=== PATIENT | female | born 1980 | race Caucasian/White ===

== ENCOUNTER 2020-05-03 06:18 | Outpatient (REF) | payer OTHER, SELFPAY ==
[2020-05-03 07:13] LABS: MANUAL DIFF FLAG NO
[2020-05-03 07:20] LABS: Basophils Percent Auto 0.4 % (0-2); Eosinophils Absolute Auto 0.1 X10*3/uL (0.0-0.4); Eosinophils Percent Auto 1.3 % (0-4); Hematocrit 34.4 % (37-47); Hemoglobin 10.9 g/dl (12.0-16.0); Imm Gran Abs Auto 0.03 X10*3/uL (0.00-0.03); Imm Gran Pct Auto 0.4 % (0.0-0.4); Lymphocytes Absolute Auto 3.2 X10*3/uL (1.2-4.9); Lymphocytes Percent Auto 37.9 % (20-40); Mean Corpuscular HGB Conc 31.7 g/dl (31.0-35.0); Mean Corpuscular Hemoglobin 25.8 pg (27.0-33.0); Mean Corpuscular Volume 81.3 fL (80-98); Mean Platelet Volume 10.5 fL (9.4-12.3); Monocytes Absolute Auto 0.8 X10*3/uL (0.1-1.2); Monocytes Percent Auto 9.3 % (2-11); Neutrophils Absolute Auto 4.3 X10*3/uL (2.0-8.3); Neutrophils Percent Auto 50.7 % (45-73); Platelet Count 304 X10*3/uL (160-400); Red Blood Count 4.23 X10*6/uL (4.20-5.50); Red Cell Distribution Width 14.1 % (11.0-16.0); White Blood Count 8.4 X10*3/uL (4.8-10.8)
[2020-05-03 07:45] LABS: Alanine Aminotransferase 17 U/L (0-31); Albumin Level 3.9 g/dL (3.5-5.0); Alkaline Phosphatase 73 U/L (39-117); Anion Gap 16 (12-20); Aspartate Amino Transferase 16 U/L (5-31); Bilirubin Direct 0.2 mg/dL (0.0-0.5); Bilirubin Total 0.4 mg/dL (0.0-1.0); Blood Urea Nitrogen 14 mg/dL (9-16); Calcium 8.2 mg/dL (8.4-10.2); Carbon Dioxide 23 mmol/L (22-29); Chloride 104 mmol/L (96-108); Cholesterol 148 mg/dL; Estimated Glomerular Filt Rate > 60; Glucose Fasting 90 mg/dL (60-99); HDL Cholesterol 32 mg/dL; LDL Cholesterol Calculated 78 mg/dl; Potassium 4.1 mmol/L (3.3-5.1); Sodium 139 mmol/L (135-145); Triglycerides 193 mg/dL
[2020-05-09 12:02] LABS: Vitamin D 25-OH, D2 <4 ng/mL; Vitamin D 25-OH, D3 69 ng/mL; Vitamin D 25-OH, Total 69 ng/mL (30-100)
== END 2020-05-03 06:19 | disposition home or self-care (01) ==
LOC: HO.LAB 06:18
PROVIDERS: PCP Internal Medicine; Visit Provider Internal Medicine
DX: E55.9 Vitamin D deficiency, unspecified (principal); E78.9 Disorder of lipoprotein metabolism, unspecified; I10 Essential (primary) hypertension
CPT/HCPCS: 36415; 80048; 80061; 80076; 82306; 85025

== ENCOUNTER 2020-05-17 16:05 | Outpatient (REF) | payer OTHER, SELFPAY ==
[2020-05-17 16:38] LABS: Hematocrit 32.5 % (37-47); Hemoglobin 10.7 g/dl (12.0-16.0)
[2020-05-17 17:25] LABS: Ferritin 6 ng/mL (10-250)
[2020-05-17 17:39] LABS: Folate 15.6 ng/mL (> or = 4.0); Vitamin B12 158 pg/mL (200-900)
== END 2020-05-17 16:06 | disposition home or self-care (01) ==
LOC: HO.LAB 16:05
PROVIDERS: PCP Internal Medicine; Visit Provider Internal Medicine
DX: D64.9 Anemia, unspecified (principal)
CPT/HCPCS: 36415; 82607; 82728; 82746; 85014; 85018

== ENCOUNTER → 2020-05-29 11:08 | Outpatient (BNVA) | payer OTHER, SELFPAY | PROVIDERS: PCP Internal Medicine; Visit Provider Advanced Practice Midwife ==

== ENCOUNTER 2020-06-13 12:40 | Outpatient (REF) | payer OTHER, SELFPAY ==
--- NOTE | ~2020-06-13 | US_ITS ---
EXAMINATION: US PELVIS ULTRASOUND CLINICAL INFORMATION: N92.0 - Excessive and frequent menstruation with regular cycle. Age 40. LMP 05/06/2020. COMPARISON: None TECHNIQUE: Ultrasound of the pelvis is performed using both transabdominal and transvaginal transducers along with Doppler. Transvaginal imaging is performed due to inadequate visualization transabdominally. FINDINGS: Uterus: The uterus is anteverted and measures 11.1 x 4.8 x 6.3 cm. The double wall endometrial thickness is normal, approximately 7 mm. The uterus is smooth in contour. There is no exophytic lesion. There is mild coarsening of the myometrial echotexture. On some of the images, there is suggestion of 3 small intramural fibroids fundus and upper body measuring between 1.3 and 0.9 cm. No submucosal fibroid demonstrated. There are some smaller both the end cysts in the cervix. Adnexa: Both ovaries are visualized. There is normal color flow to the adnexa. There is no ovarian torsion. There is no pelvic ascites or fluid collection. Right ovary measures 3.2 x 1.6 x 1.9 cm. Volume 5.1 mL. Left ovary measures 2.7 x 1.1 x 2.2 cm. Volume 3.4 mL. US/US transvaginal IMPRESSION: 1. Uterus: Endometrial double wall thickness normal, 7 mm. Suspect 3 small intramural fibroids, largest only 1.3 cm. No visible submucosal fibroid. 2. Adnexa: No adnexal mass or pelvic ascites.
--- NOTE | ~2020-06-13 | US_ITS ---
EXAMINATION: US PELVIS ULTRASOUND CLINICAL INFORMATION: N92.0 - Excessive and frequent menstruation with regular cycle. Age 40. LMP 05/06/2020. COMPARISON: None TECHNIQUE: Ultrasound of the pelvis is performed using both transabdominal and transvaginal transducers along with Doppler. Transvaginal imaging is performed due to inadequate visualization transabdominally. FINDINGS: Uterus: The uterus is anteverted and measures 11.1 x 4.8 x 6.3 cm. The double wall endometrial thickness is normal, approximately 7 mm. The uterus is smooth in contour. There is no exophytic lesion. There is mild coarsening of the myometrial echotexture. On some of the images, there is suggestion of 3 small intramural fibroids fundus and upper body measuring between 1.3 and 0.9 cm. No submucosal fibroid demonstrated. There are some smaller both the end cysts in the cervix. Adnexa: Both ovaries are visualized. There is normal color flow to the adnexa. There is no ovarian torsion. There is no pelvic ascites or fluid collection. Right ovary measures 3.2 x 1.6 x 1.9 cm. Volume 5.1 mL. Left ovary measures 2.7 x 1.1 x 2.2 cm. Volume 3.4 mL. US/US pelvic complete IMPRESSION: 1. Uterus: Endometrial double wall thickness normal, 7 mm. Suspect 3 small intramural fibroids, largest only 1.3 cm. No visible submucosal fibroid. 2. Adnexa: No adnexal mass or pelvic ascites.
== END 2020-06-13 12:41 | disposition home or self-care (01) ==
LOC: HO.US 12:40
PROVIDERS: Visit Provider Advanced Practice Midwife
DX: N92.0 Excessive and frequent menstruation with regular cycle (principal)
CPT/HCPCS: 76830; 76856

== ENCOUNTER → 2020-06-18 15:25 | Outpatient (BNVA) | payer OTHER, SELFPAY | PROVIDERS: PCP Internal Medicine; Visit Provider Advanced Practice Midwife ==

== ENCOUNTER 2020-06-22 10:52 | Outpatient (REF) | payer OTHER, SELFPAY ==
[2020-06-22 12:35] LABS: Thyroid Stimulating Hormone 1.86 uIU/mL (0.32-4.0)
== END 2020-06-22 10:53 | disposition home or self-care (01) ==
LOC: HO.LAB 10:52
PROVIDERS: PCP Internal Medicine; Visit Provider Advanced Practice Midwife
DX: N92.1 Excessive and frequent menstruation with irregular cycle (principal)
CPT/HCPCS: 36415; 84443

== ENCOUNTER 2020-06-24 13:02 | Outpatient (REF) | payer OTHER, SELFPAY | END 2020-06-24 13:03 | disposition home or self-care (01) | LOC: HO.LAB 13:02 | PROVIDERS: PCP Internal Medicine; Visit Provider Advanced Practice Midwife | DX: N93.9 Abnormal uterine and vaginal bleeding, unspecified (principal); N92.0 Excessive and frequent menstruation with regular cycle | CPT/HCPCS: 58100; 81025; 88305 ==

== ENCOUNTER → 2020-07-16 15:35 | Outpatient (BNVA) | payer OTHER, SELFPAY | PROVIDERS: Visit Provider Advanced Practice Midwife ==

== ENCOUNTER 2020-07-17 13:48 | Outpatient (REF) | payer OTHER, SELFPAY ==
--- NOTE | ~2020-07-17 | MM_ITS ---
EXAMINATION: MM SCREENING DIGITAL BREAST TOMOSYNTHESIS, BILATERAL CLINICAL INFORMATION: Screening. Asymptomatic. Age 40. No prior breast imaging. No known family history breast cancer. The lifetime risk of breast cancer based on the Tyrer-Cuzick Model is 10%. COMPARISON: None (current study represents initial baseline exam). TECHNIQUE: Digital breast tomosynthesis is performed in both the craniocaudal and mediolateral oblique views along with computer-aided detection (CAD). Synthesized 2D images are generated from the tomosynthesis. Additional views are provided: Right CC, right MLO, left MLO. FINDINGS: The breasts are almost entirely fatty (ACR BI-RADS breast composition Category a). There are no significant masses, abnormal calcifications, or other abnormalities. There is incidental intramammary node posterior upper outer right breast. Skin contours are smooth. MM/MM tomosynthesis screening BI IMPRESSION: No mammographic evidence of malignancy. ASSESSMENT: BI-RADS 2: Benign RECOMMENDATION: Routine annual mammography screening. This patient's information was entered into a reminder system with a target due date for their next mammogram.
== END 2020-07-17 13:49 | disposition home or self-care (01) ==
LOC: HO.MAMMO 13:48
PROVIDERS: Visit Provider Advanced Practice Midwife
DX: Z12.31 Encounter for screening mammogram for malignant neoplasm of breast (principal)
CPT/HCPCS: 77063; 77067

== ENCOUNTER 2020-07-25 09:17 | Outpatient (REF) | payer OTHER, SELFPAY | END 2020-07-25 09:18 | disposition home or self-care (01) | LOC: HO.LAB 09:17 | PROVIDERS: Visit Provider Nurse Practitioner Family | DX: Z20.822 Contact with and (suspected) exposure to COVID-19 (principal); R09.82 Postnasal drip | CPT/HCPCS: U0003; U0005 ==

== ENCOUNTER 2020-11-07 08:10 | Outpatient (REF) | payer OTHER, SELFPAY ==
[2020-11-07 09:03] LABS: Hematocrit 37.1 % (37-47); Hemoglobin 12.7 g/dl (12.0-16.0)
[2020-11-07 09:26] LABS: Alanine Aminotransferase 19 U/L (0-31); Albumin Level 4.1 g/dL (3.5-5.0); Alkaline Phosphatase 105 U/L (39-117); Anion Gap 13 (12-20); Aspartate Amino Transferase 17 U/L (5-31); Bilirubin Total 0.3 mg/dL (0.0-1.0); Blood Urea Nitrogen 15 mg/dL (9-16); Calcium 9.1 mg/dL (8.4-10.2); Carbon Dioxide 26 mmol/L (22-29); Chloride 105 mmol/L (96-108); Estimated Glomerular Filt Rate > 60; Glucose Random 101 mg/dL (60-115); Potassium 3.9 mmol/L (3.3-5.1); Sodium 140 mmol/L (135-145); Total Protein 7.1 g/dL (6.5-8.0)
[2020-11-07 09:49] LABS: Ferritin 20 ng/mL (10-250)
[2020-11-07 09:58] LABS: Vitamin B12 1039 pg/mL (200-900)
[2020-11-12 22:41] LABS: Intrinsic Factor Antibodies Negative (Negative)
== END 2020-11-07 08:11 | disposition home or self-care (01) ==
LOC: HO.LAB 08:10
PROVIDERS: PCP Internal Medicine; Visit Provider Internal Medicine
DX: D50.9 Iron deficiency anemia, unspecified (principal); E53.8 Deficiency of other specified B group vitamins; I10 Essential (primary) hypertension; E78.9 Disorder of lipoprotein metabolism, unspecified
CPT/HCPCS: 36415; 80053; 82607; 82728; 85014; 85018; 86340

== ENCOUNTER 2021-05-01 10:30 | Outpatient (RCR) | payer OTHER, SELFPAY ==
--- NOTE | 2021-03-25 12:27 | MHC.OT.OEV ---
[address] [phone] F: [phone] Occupational Therapy Evaluation Diagnosis: PAIN IN RIGHT FINGERS Date of Onset: 03/22/20 Attending Provider: Madina Esparza Prescribed Treatment: EVAL AND TREAT History of Current Condition: REPORTS RIGHT THUMB PAIN X1 YEAR, ONSET OF LEFT THUMB PAIN X1 MONTH. STATES MOST PAINFUL WITH PINCHING AND GRIPPING, INCLUDING WORK RELATED TASKS (RN) - MEDICATION MANAGEMENT/ DISTRIBUTION. 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 HOBBIES: BOWLING, WALKING AND PLAYING WITH DOG, WATCHING MOVIES, DESTINEY Living Situation, Family and/or Social Support: LIVES WITH SPOUSE, TWO CHILDREN (14 AND 10) AND DOG Current Level of Function and Occupation Self Care, Employment, Leisure: REPORTS DIFFICULTIES WITH MEDICATION DISTRIBUTION INCLUDING OPENING CONTAINERS, CRUSHING MEDS. SOME TROUBLE WITH WASHING DISHES AND VACUUMING. SOME DIFFICULTIES WITH PULLING PANTS ON/OFF AND FASTENING BRA. FEARFUL TO ATTEMPT BOWLING DUE TO PAIN. Sleep: WEARING SPLINTS AT NIGHT, INCONSISTENTLY. Driving: NO DIFFICULTIES Vision: Balance: Pain Assessment Pain Score: 2-8/10 Pain Scale Used: Numeric (0 - 10) Pain Location and Description: 2/10 L THUMB AT REST, 1/10 R THUMB AT REST 5-8/10 L THUMB, 5/10 R THUMB WITH USE INCLUDING PINCHING AND GRIPPING SHARP PAIN Aggravating Factors: GRIPPING, PINCHING Alleviating Factors: IBUPROFEN, WEARING SPLINTS, REST Sensory Assessment Temperature: Light Touch: WFL Proprioception: Vibration: Comments: DENIES PARASTHESIA Edema Assessment Upper Extremity: WNL Lower Extremity: Comments: Dexterity Assessment Dexterity: Right Impaired Comments: FUNCTIONAL DEXTERITY TEST: RIGHT 38 SECONDS, LEFT 25 SECONDS Special Tests Comments: (+) JUSTICE B/L THUMBS AROM(PROM) Strength Wrist Flexion: L 75, R 80 Extension: L 68, R 68 Ulnar Deviation: Radial Deviation: Comments: Flexion: Extension: Ulnar Deviation: Radial Deviation: Comments: Thumb Thumb CMC Flexion: Thumb MCP Flexion: R 58, L 56 Thumb IP Flexion: R 80, L 78 Radial Abduction: Palmar Abduction: [place] (K[place]andji 0-10): Comments: Digits Index MCP: PIP: DIP: Long MCP: PIP: DIP: Ring MCP: PIP: DIP: Small MCP: PIP: DIP: Comments: Gross Grasp: R 48, L 42 Lateral Pinch: R 8, L 10 Two-Point Pinch: R 10, L 9 Three-Jaw Dimas: R 11, L 9 Comments: Patient Education Primary Language: Icelandic Anesthesia Assistant Required: No Current Knowledge: Understands information with skills for self-management Teaching Method: Demonstration Handouts Phone Call Verbal Education Needs Identified on Evaluation: ADL's Disease Information Equipment Use Exercise Pain Safety How did patient/family demonstrate learning? Patient demonstrates Patient verbalizes Barriers to Learning: None Readiness for Learning: Accepting Who was educated? Patient Comments: Plan of Care Assessment: MS CENTENO REPORTS ABOUT A ONE YEAR HISTORY OF RIGHT THUMB PAIN AND ONE MONTH HISTORY OF LEFT THUMB PAIN. A (+) JUSTICE WAS ELICITED BILATERALLY. HER S/S ARE CONSISTENT WITH DEQUERVAINS TENOSYNOVITIS. SHE REPORTS A 41% LIMITATION PER THE QUICK DASH ASSESSMENT. ONGOING SKILLED OT IS WARRANTED TO ADDRESS THE AREAS MENTIONED ABOVE AND IMPROVE QOL. STG Duration: 2 WEEKS Short Term Goals: IND HEP IND JOINT PROTECTION AND ACTIVITY MODIFICATION IND USE OF HEAT ICE REPORT <2/10 PAIN AT REST IND USE OF ORTHOSES LTG Duration: 4 WEEKS Customer Strategy Manager Goals: QUICK DASH <25% INCREASE B/L SPECIAL EDUCATION SCIENCE TEACHER STRENGTH BY 10 POUNDS REPORT <3/10 PAIN WITH PINCHING AND WORK RELATED TASKS USING MODIFIED TECHNIQUES NEEDED Frequency and Duration: The patient will be seen 3X/WEEK FOR 4 WEEKS Treatment Plan: Therapeutic Exercise Therapeutic Activity Home Exercise Program Splinting Neuro Re-ed Patient Education Desensitization/Sensory Re-ed Edema Control ADL Training Ultrasound NMES Iontophoresis Paraffin Fluidotherapy MHP Cold Packs Joint Mobilization Soft Tissue Mobilization Kinesiotaping Other (see comments) Electronically Signed By: DUDLEY HERNÁNDEZ OTR/L Reviewed/agree with student documentation: N/A Therapist: Please sign and return to therapist, Thank you for your referral.
--- NOTE | 2021-05-01 11:15 | MHC.OT.DC ---
[address] [phone] F: [phone] Occupational Therapy Discharge Note Provider: Madina Esparza Diagnosis: PAIN IN RIGHT FINGERS Date of Evaluation: 03/25/21 Date of Discharge: 05/01/21 Treatments to Date: 9 Discharge Status: Achieved Goals Improved Function Independent with HEP Discharge Summary: MS CENTENO HAS PROGRESSED WELL WITH HER OT GOALS. SHE HAS DECREASED HER PAIN IN THE RADIAL WRIST WELL BASAL Jt OF THUMB. SHE REPORTS OCCASIONAL, LOW PAIN IN BASAL Jt OF THUMB YET USING COMPENSATORY TECH AND ORTHOSIS ABLE WITH WORK RELATED TASKS AND IADLs. SHE IS IND WITH HER HEP AND HAS ACHIEVED ALL GOALS EXCEPT FOR WELDER REPAIR STRENGTH, YET IT DID IMPROVE DURING HER COURSE OF OT. Pt WILL BE TRANSITIONED TO A HOME BASED PROGRAM AT THIS TIME. D/C OT SERVICES. Electronically Signed By: DUDLEY HERNÁNDEZ OTR/Shawn Reviewed/agree with student documentation: N/A Therapist: Please Sign and return to therapist, thank you for your referral.
== END 2021-05-01 11:15 | disposition home or self-care (01) ==
LOC: HO.OT 10:30
PROVIDERS: PCP Internal Medicine; Visit Provider Internal Medicine
DX: M79.644 Pain in right finger(s) (principal)
CPT/HCPCS: 29130; 97033; 97035; 97110; 97140; 97166; 97760

== ENCOUNTER 2021-06-12 10:27 | Outpatient (REF) | payer OTHER, SELFPAY ==
[2021-06-12 11:15] LABS: Hematocrit 37.2 % (37.0-47.0); Hemoglobin 12.6 g/dl (12.0-16.0); Mean Corpuscular HGB Conc 33.9 g/dl (31.0-35.0); Mean Corpuscular Hemoglobin 29.1 pg (27.0-33.0); Mean Corpuscular Volume 85.9 fL (80.0-98.0); Mean Platelet Volume 10.2 fL (9.4-12.3); Platelet Count 229 X10*3/uL (160-400); Red Blood Count 4.33 X10*6/uL (4.20-5.50); Red Cell Distribution Width 13.7 % (11.0-16.0); White Blood Count 10.7 X10*3/uL (4.8-10.8)
[2021-06-12 12:35] LABS: Alanine Aminotransferase 269 U/L (0-31); Albumin Level 4.1 g/dL (3.5-5.0); Alkaline Phosphatase 229 U/L (39-117); Anion Gap 15 (12-20); Aspartate Amino Transferase 126 U/L (5-31); Bilirubin Direct 1.4 mg/dL (0.0-0.5); Bilirubin Total 2.4 mg/dL (0.0-1.0); Blood Urea Nitrogen 8 mg/dL (9-16); Calcium 9.5 mg/dL (8.4-10.2); Carbon Dioxide 24 mmol/L (22-29); Chloride 103 mmol/L (96-108); Estimated Glomerular Filt Rate > 60; Glucose Random 86 mg/dL (60-115); Lipase 12 U/L (8-78); Potassium 3.5 mmol/L (3.3-5.1); Sodium 138 mmol/L (135-145); Total Protein 7.4 g/dL (6.5-8.0)
== END 2021-06-12 10:28 | disposition home or self-care (01) ==
LOC: HO.LAB 10:27
PROVIDERS: PCP Internal Medicine; Visit Provider Physician Assistant
DX: R10.9 Unspecified abdominal pain (principal)
CPT/HCPCS: 36415; 80048; 80076; 83690; 85027

== ENCOUNTER 2021-06-12 14:46 | Inpatient (IN) | payer OTHER, SELFPAY ==
--- NOTE | ~2021-06-12 | US_ITS ---
EXAMINATION: US ABDOMEN LIMITED CLINICAL INFORMATION: Abdominal pain and abnormal LFTs. COMPARISON: None. TECHNIQUE: Real-time imaging of the gallbladder. US/US abdomen limited FINDINGS/IMPRESSION: There is cholelithiasis, gallbladder wall thickening and a positive Guerra's sign most indicative of acute cholecystitis in the appropriate clinical context. The CBD measures 0.4 cm.
--- NOTE | ~2021-06-12 | CT_ITS ---
EXAMINATION: CT ABDOMEN AND PELVIS WITH CONTRAST CLINICAL INFORMATION: Right upper quadrant pain. Evaluate choledocholithiasis COMPARISON: 06/12/2021 TECHNIQUE: Multidetector volumetric images were obtained from the superior aspect of the liver through the pubic symphysis following administration 85 mL of Omnipaque 350 intravenous contrast. Sagittal and coronal reformatted images were obtained on the technologist's workstation. Oral contrast: No This CT examination was performed using dose optimization techniques as appropriate, variously including the following: *Automated exposure control *Adjustment of mA and/or kV according to patient size (this includes techniques or standardized protocols for targeted exams where dose is matched to indication/reason for exam; i.e. extremities or head) *Use of iterative reconstruction technique DLP: 1049 mGy-cm FINDINGS: LUNG BASES: The visualized lung bases are unremarkable. LIVER, GALLBLADDER, AND BILIARY TREE: Liver measures 22 cm craniocaudal, likely due to a Manav's lobe. Liver is otherwise normal in shape and attenuation. No focal hepatic lesion or biliary ductal dilatation is present. Multiple radiodense gallstones are seen dependently within the gallbladder. There is mild gallbladder wall thickening. No appreciable pericholecystic fluid are surrounding fat stranding. No evidence of choledocholithiasis. There is a small duodenal diverticulum which the common bile duct inserts onto. PANCREAS: Unremarkable. SPLEEN: Unremarkable. ADRENAL GLANDS: Unremarkable. KIDNEYS AND URETERS: The kidneys are normal in size, shape, and attenuation. No hydronephrosis, hydroureter, or calculi seen. No perinephric stranding. BLADDER: Unremarkable. GASTROINTESTINAL TRACT: Stomach, small bowel, and colon are normal in caliber. No bowel wall thickening or surrounding inflammatory changes. No evidence of acute appendicitis.. No intraperitoneal free fluid or free air. ABDOMINAL WALL: Tiny fat-containing umbilical hernia. No bowel involvement. LYMPH NODES: Numerous subcentimeter mesenteric and retroperitoneal lymph nodes are identified. A 1.2 cm portacaval node is within normal limits. VASCULAR: Minimal atherosclerotic calcification in the infrarenal abdominal aorta. Iliac arteries are normal. PELVIC VISCERA: There is a 2.8 cm cyst in the left ovary, likely follicular. No recommend imaging follow-up. Uterus is normal in size. No right adnexal abnormalities. OSSEOUS STRUCTURES: Facet arthropathy is present in the lower lumbar spine at L5-S1. Prominent lower lumbar lordosis. No fractures. 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 CT/CT abdomen pelvis w con IMPRESSION: 1. Cholelithiasis with mild gallbladder wall thickening. This is consistent with acute cholecystitis is suspected on ultrasound. 2. No CT evidence of choledocholithiasis. Common bile duct is normal in caliber without findings to suggest ductal obstruction.
[2021-06-12 14:58] VITALS: BP 155/93; PULSE 105; RESP 18; TEMP 37.4; O2SAT 91; BMI 46.6
[2021-06-12 17:10] LABS: MANUAL DIFF FLAG NO
[2021-06-12 17:12] LABS: Basophils Percent Auto 0.3 % (0-2); Eosinophils Absolute Auto 0.1 X10*3/uL (0.0-0.4); Hematocrit 38.1 % (37.0-47.0); Imm Gran Abs Auto 0.06 X10*3/uL (0.00-0.03); Imm Gran Pct Auto 0.6 % (0.0-0.4); Lymphocytes Absolute Auto 1.4 X10*3/uL (1.2-4.9); Lymphocytes Percent Auto 13.3 % (20-40); Mean Corpuscular HGB Conc 34.1 g/dl (31.0-35.0); Mean Corpuscular Hemoglobin 29.2 pg (27.0-33.0); Mean Corpuscular Volume 85.6 fL (80.0-98.0); Mean Platelet Volume 8.9 fL (9.4-12.3); Monocytes Absolute Auto 0.8 X10*3/uL (0.1-1.2); Monocytes Percent Auto 7.5 % (2-11); Neutrophils Percent Auto 77.3 % (45-73); Platelet Count 329 X10*3/uL (160-400); Red Blood Count 4.45 X10*6/uL (4.20-5.50); Red Cell Distribution Width 13.6 % (11.0-16.0); White Blood Count 10.4 X10*3/uL (4.8-10.8)
[2021-06-12 17:16] LABS: Appearance Urine CLEAR; Color Urine YELLOW; Glucose Urine UA NEG (NEG); Leukocyte Esterase Urine TRACE (NEG); Nitrite Urine NEG (NEG); PH 5.5 (5.0-8.0); UACC Culture Trigger YES; Urine Blood NEG (NEG); Urine Ketones NEG (NEG); Urine Protein NEG (NEG-TRACE)
[2021-06-12 17:19] LABS: UPreg QC Valid YES; Urine Pregnancy NEGATIVE (NEGATIVE)
[2021-06-12 17:32] LABS: Anion Gap 16 (12-20); Blood Urea Nitrogen 8 mg/dL (9-16); Calcium 9.9 mg/dL (8.4-10.2); Carbon Dioxide 26 mmol/L (22-29); Chloride 101 mmol/L (96-108); Creatinine Clr Calc Pharmacy 125.6; Estimated Glomerular Filt Rate > 60; Glucose Random 94 mg/dL (60-115); Potassium 3.4 mmol/L (3.3-5.1); Sodium 140 mmol/L (135-145)
[2021-06-12 17:38] LABS: Bacteria Urine 1+ /LPF; Squamous Epithelial Cell Urine 4+ /LPF
--- NOTE | 2021-06-12 19:45 | ED.GENADULT ---
HPI - General Adult General Chief complaint: General Medical Stated complaint: abnormal blood work Time Seen by Provider: 06/12/21 16:07 Source: patient Limitations: no limitations History of Present Illness HPI narrative: This is a 41-year-old female who complains of abdominal pain for about a week and after the patient had ate [place] food and then developed upper abdominal pain which came on when a few times and then has been more constant for about a week. She denies any fever. She has had some nausea but no vomiting. She denies any constipation or diarrhea. She denies any dysuria or urinary frequency. She has noted that her urine cm dark this morning. She denies any prior history of gallbladder or liver problems. The patient had LFTs done earlier today which showed some abnormalities, and she was referred to the ED. the patient has had 2 pregnancies. Related Data Home Medications Medication Instructions Recorded Confirmed ascorbic acid (vitamin C) 500 mg mg PO 04/26/20 03/18/21 capsule cholecalciferol (vitamin D3) 125 125 mcg PO DAILY 04/26/20 03/18/21 mcg (5,000 unit) capsule vitamin B complex (B 1 tab PO DAILY 05/29/20 03/18/21 Complex-Vitamin B12) docusate sodium [Stool Softener] PO BID 11/12/20 03/18/21 omeprazole magnesium 20 mg 20 mg PO DAILY 06/12/21 tablet,delayed release (Prilosec OTC) Previous Rx's Medication Instructions Recorded ferrous sulfate 324 mg (65 mg 324 mg PO BID 90 Days #180 tab 10/11/20 iron) tablet,delayed release norethindrone (contraceptive) 0.35 0.35 mg PO DAILY #28 tab 02/17/21 mg tablet (Rhiannon) hydrochlorothiazide 25 mg tablet 25 mg PO DAILY 90 Days #90 tab 05/28/21 atorvastatin 20 mg tablet 20 mg PO BEDTIME 90 Days #90 tab 06/09/21 Allergies Allergy/AdvReac Type Severity Reaction Status Date / Time No Known Allergies Allergy Unknown U Unverified 06/12/21 09:21 Review of Systems Review of Systems: Yes all other systems are reviewed and are negative Constitutional: Constitutional: Reports as per HPI and Denies fever(s) Eyes: Eyes: Reports as per HPI and Reports no additional eye complaints ENT: Reports system reviewed and no additional complaints, except as documented, Reports as per HPI, Denies nasal congestion, Denies nasal discharge and Denies sore throat Cardiovascular: Cardiovascular: Reports as per HPI, Denies chest pain and Denies dyspnea Respiratory: Respiratory: Reports as per HPI, Denies cough and Denies dyspnea Gastrointestinal: Gastrointestinal: Reports as per HPI, Reports abdominal pain, Denies diarrhea, Reports nausea and Denies vomiting Genitourinary: Genitourinary: Reports as per HPI, Denies hematuria, Denies urinary frequency and Denies dysuria Musculoskeletal: Musculoskeletal: Reports no additional musculoskeletal complaints and Denies numbness Integumentary/Breasts: Skin/Breast: Reports as per HPI and Denies rash Neurologic: Reports as per HPI, Denies focal weakness and Denies numbness Psychiatric: Psychiatric: Reports no additional psychiatric complaints and Reports as per HPI Endocrine: Endocrine: Reports no additional endocrine complaints and Reports as per HPI Hematologic/Lymphatic: Hematologic/Lymphatic: Reports no additional hematologic/lymphatic complaints, Reports as per HPI and Reports other (No peripheral edema) [facility] Past Medical History Medical History High cholesterol Hypertension Morbid obesity with BMI of 45.0-49.9, adult Surgical History No pertinent past surgical history Family History Family History Father Hyperlipidemia Diabetes mellitus COPD (chronic obstructive pulmonary disease) Mother Hyperlipidemia HTN (hypertension) Skin cancer Maternal Grandfather No problems noted. Maternal Grandmother No problems noted. Paternal Grandmother CHF (congestive heart failure) Dementia Paternal Grandfather No problems noted. Sister No problems noted. Son No problems noted. Son No problems noted. Social History Social History Housing: House Alcohol intake: never Patient Tobacco Use Status: Never used Tobacco Second Hand Smoke Exposure: No Advance Directives: No Current occupational status: employed Physical Exam ED Vital Signs: Vital Signs - 24 hr 06/12/21 14:58 06/12/21 20:04 06/12/21 23:11 Temperature 99.3 F Pulse Rate 105 H 92 79 Respiratory Rate 18 14 15 Blood Pressure 155/93 H 136/95 H 125/79 Pulse Oximetry 91 L 06/13/21 00:04 Temperature Pulse Rate 83 Respiratory Rate 14 Blood Pressure 129/84 Pulse Oximetry 97 BMI result Body Mass Index 46.6 Const Other: Patient not ill-appearing, releases sits up and adjust herself on the gurney without any apparent discomfort. Patient is moderately obese. General: no acute distress Orientation/consciousness: patient oriented x3 HENMT Head: Yes normal to inspection General nose exam: Normal external nose present Mouth: moist mucous membranes Throat: Yes posterior oropharynx normal, Yes tonsils normal and Yes uvula midline Eyes Eyelids: Yes eyelids normal Conjunctivae: conjunctivae normal Pupils: Equal, round and reactive pupils present Neck Neck: Yes supple Resp Effort & Inspection: normal respiratory effort Auscultation: clear to auscultation bilaterally Cardio Rate: regular rate Rhythm: regular rhythm Heart sounds: S1 normal heart sound present, S2 normal heart sound present, no gallops, no murmurs and no rubs GI Inspection: No distended Palpation (GI): Soft to palpation and Tenderness to palpation present (GI) (Mildly tender epigastric and right upper quadrant) Skin General skin exam: other (Warm and dry) Neuro General: patient oriented x3 and CN's II-XI intact bilaterally Cranial nerves: Yes Equal, round and reactive pupils present Extrem General: Yes no pedal edema Psych Affect: normal affect Attitude: cooperative Medical Decision Making [facility] Narrative Medical decision making narrative: Patient with upper abdominal pain for several days, with nausea but no vomiting, had abnormal liver function tests this morning and was referred to the ED. patient not ill-appearing, did have some upper abdominal tenderness. No fever. White blood cell count normal. Ultrasound showed gallstones and some gallbladder wall thickening, no dilated common bile duct. This was discussed with Dr. Torres of General surgery who, despite the findings of nondilated common bile duct, was concerned about biliary obstruction. CT scan of the abdomen pelvis was done with IV contrast and confirmed a degree of cholecystitis and a normal common bile duct. Dr. Torres was called back and is admitting the patient. Patient may have had a stone which caused temporary biliary obstruction but then passed. Patient may need cholecystectomy Lab Data Lab results reviewed: Yes I reviewed the patient's lab results. Result diagrams: 06/12/21 17:06 06/12/21 17:06 Labs: Lab Results 06/12/21 06/12/21 06/12/21 Range/Units 17:04 17:04 17:06 WBC 10.4 (4.8-10.8) X10*3/uL RBC 4.45 (4.20-5.50) X10*6/uL Hgb 13.0 (12.0-16.0) g/dl Hct 38.1 (37.0-47.0) % MCV 85.6 (80.0-98.0) fL MCH 29.2 (27.0-33.0) pg MCHC 34.1 (31.0-35.0) g/dl RDW 13.6 (11.0-16.0) % Plt Count 329 D (160-400) X10*3/uL MPV 8.9 L (9.4-12.3) fL Immature Gran % (Auto) 0.6 H (0.0-0.4) % Neut % (Auto) 77.3 H (45-73) % Lymph % (Auto) 13.3 L (20-40) % [place] % (Auto) 7.5 (2-11) % Eos % (Auto) 1.0 (0-4) % Baso % (Auto) 0.3 (0-2) % Lymph # (Auto) 1.4 (1.2-4.9) X10*3/uL [place] # (Auto) 0.8 (0.1-1.2) X10*3/uL Eos # (Auto) 0.1 (0.0-0.4) X10*3/uL Baso # (Auto) 0.0 (0.0-0.2) X10*3/uL Abs Immat Gran (auto) 0.06 H (0.00-0.03) X10*3/uL Absolute Neuts (auto) 8.0 (2.0-8.3) x10*3/uL Absolute Nucleated RBC 0.000 (0.0-0.012) X10*3/uL Nucleated RBC % (auto) 0.0 (0.0-0.2) /100WBC Sodium (135-145) mmol/L Potassium (3.3-5.1) mmol/L Chloride (96-108) mmol/L Carbon Dioxide (22-29) mmol/L Anion Gap (12-20) BUN (9-16) mg/dL Creatinine (0.5-1.4) mg/dL Estim Creat Clear Calc Estimated GFR Random Glucose (60-115) mg/dL Calcium (8.4-10.2) mg/dL Lipase (8-78) U/L Urine Color YELLOW Urine Appearance CLEAR Urine pH 5.5 (5.0-8.0) Ur Specific [place] 1.020 (1.005-1.025) Urine Protein NEG (NEG-TRACE) MG/DL Urine Glucose (UA) NEG (NEG) MG/DL Urine Ketones NEG (NEG) MG/DL Urine Blood NEG (NEG) Urine Nitrite NEG (NEG) Ur Leukocyte Esterase TRACE H (NEG) Urine RBC 1-4 (0) /HPF Urine WBC 1-4 (0-4) /HPF Ur Squamous Epith Cells 4+ /LPF Urine Bacteria 1+ /LPF Urine Test NEGATIVE (NEGATIVE) 06/12/21 06/12/21 Range/Units 17:06 20:32 WBC (4.8-10.8) X10*3/uL RBC (4.20-5.50) X10*6/uL Hgb (12.0-16.0) g/dl Hct (37.0-47.0) % MCV (80.0-98.0) fL MCH (27.0-33.0) pg MCHC (31.0-35.0) g/dl RDW (11.0-16.0) % Plt Count (160-400) X10*3/uL MPV (9.4-12.3) fL Immature Gran % (Auto) (0.0-0.4) % Neut % (Auto) (45-73) % Lymph % (Auto) (20-40) % [place] % (Auto) (2-11) % Eos % (Auto) (0-4) % Baso % (Auto) (0-2) % Lymph # (Auto) (1.2-4.9) X10*3/uL [place] # (Auto) (0.1-1.2) X10*3/uL Eos # (Auto) (0.0-0.4) X10*3/uL Baso # (Auto) (0.0-0.2) X10*3/uL Abs Immat Gran (auto) (0.00-0.03) X10*3/uL Absolute Neuts (auto) (2.0-8.3) x10*3/uL Absolute Nucleated RBC (0.0-0.012) X10*3/uL Nucleated RBC % (auto) (0.0-0.2) /100WBC Sodium 140 (135-145) mmol/L Potassium 3.4 (3.3-5.1) mmol/L Chloride 101 (96-108) mmol/L Carbon Dioxide 26 (22-29) mmol/L Anion Gap 16 (12-20) BUN 8 L (9-16) mg/dL Creatinine 0.71 (0.5-1.4) mg/dL Estim Creat Clear Calc 125.6 Estimated GFR > 60 Random Glucose 94 (60-115) mg/dL Calcium 9.9 (8.4-10.2) mg/dL Lipase 11 (8-78) U/L Urine Color Urine Appearance Urine pH (5.0-8.0) Ur Specific [place] (1.005-1.025) Urine Protein (NEG-TRACE) MG/DL Urine Glucose (UA) (NEG) MG/DL Urine Ketones (NEG) MG/DL Urine Blood (NEG) Urine Nitrite (NEG) Ur Leukocyte Esterase (NEG) Urine RBC (0) /HPF Urine WBC (0-4) /HPF Ur Squamous Epith Cells /LPF Urine Bacteria /LPF Urine Test (NEGATIVE) Imaging Data Right upper quadrant ultrasound: Radiologist's impression: There is cholelithiasis, gallbladder wall thickening and a positive Guerra's sign most indicative of acute cholecystitis in the appropriate clinical context. ? The CBD measures 0.[address] abdomen and pelvis with IV contrast: Radiologist's impression: IMPRESSION: 1. Cholelithiasis with mild gallbladder wall thickening. This is consistent with acute cholecystitis is suspected on ultrasound. 2. No CT evidence of choledocholithiasis. Common bile duct is normal in caliber without findings to suggest ductal obstruction. Discharge Plan Discharge Clinical Impression: Acute cholecystitis Patient Disposition: Admitted As Inpatient
[2021-06-12 20:04] VITALS: BP 136/95; PULSE 92; RESP 14
[2021-06-12 21:00] LABS: Lipase 11 U/L (8-78)
--- NOTE | 2021-06-12 21:00 | PC.NURSE ---
Pt resting quietly, waiting for lipase result, Pt 06/29 abd discomfort, Pt denies n/v at this time, call de anda in reach, this rn continues to monitor.
[2021-06-12] MEDS: Acetaminophen 325 MG TABLET 650 MG PO (21:52)
[2021-06-12] MEDS: iohexoL 350 MG/ML 100 ML INFUS..BTL IV (22:33)
[2021-06-12 23:11] VITALS: BP 125/79; PULSE 79; RESP 15
[2021-06-13] MEDS: Piperacillin Sodium/Tazobactam 4.5 GM in 0.9 % Sodium Chloride 100 ML IV (00:03)
[2021-06-13 00:04] VITALS: BP 129/84; PULSE 83; RESP 14; O2SAT 97
[2021-06-13 00:56] VITALS: BP 130/82; PULSE 78; RESP 14
[2021-06-13] MEDS: 0.9 % Sodium Chloride 1,000 ML 100 ML IVCONT (03:48)
[2021-06-13 07:29] LABS: Hematocrit 35.7 % (37.0-47.0); Hemoglobin 12.1 g/dl (12.0-16.0); Mean Corpuscular HGB Conc 33.9 g/dl (31.0-35.0); Mean Corpuscular Hemoglobin 29.4 pg (27.0-33.0); Mean Corpuscular Volume 86.7 fL (80.0-98.0); Mean Platelet Volume 9.2 fL (9.4-12.3); Platelet Count 265 X10*3/uL (160-400); Red Blood Count 4.12 X10*6/uL (4.20-5.50); Red Cell Distribution Width 13.8 % (11.0-16.0); White Blood Count 9.2 X10*3/uL (4.8-10.8)
--- NOTE | 2021-06-13 07:46 | PHA.MEDREC ---
Pharmacy Consult ? Medication Reconciliation Pharmacy has completed the medication reconciliation. Patient reported all medications. She only take vitB12 and ferrous sulfate on
[2021-06-13 07:55] LABS: Alanine Aminotransferase 172 U/L (0-31); Albumin Level 3.8 g/dL (3.5-5.0); Alkaline Phosphatase 190 U/L (39-117); Aspartate Amino Transferase 49 U/L (5-31); Bilirubin Direct 0.6 mg/dL (0.0-0.5); Bilirubin Total 1.2 mg/dL (0.0-1.0); Total Protein 6.7 g/dL (6.5-8.0)
--- NOTE | 2021-06-13 08:11 | PC.NURSE ---
Pt is a/o. resting in the hospital bed. pt is independent and ambulatory. C/o intermittent upper abdominal pain and requesting tylenol for the pain. Dr Torres made aware. Belongings within reach.
--- NOTE | 2021-06-13 08:15 | PM.HPGS ---
History of Present Illness History of Present Illness Date of Service: 06/20/21 Chief complaint: gallstones, abnormal LFTs Narrative: Mari Brito is a 41 year old female who was sent to the ER yesterday afternoon by the urgent care center because of abnormal lab tests. The patient describes having had some vague epigastric pain for about 1-2 weeks. She says that these had 2 days ago and she says that she did not come to work because of that. The pain eventually improved significantly after the that severe episode. However, she decided to go to the urgent care center yesterday coping to have an ultrasound scheduled. She had blood draws at the urgent care center and her bilirubin was elevated so she was instructed to go to the ER because of this. At that time however, she says the pain had improved significantly. She says that she was actually able to eat well yesterday and had good oral intake. Currently, she feels comfortable. She says she has minimal pain if at all and only on the epigastric area. She denies any right upper quadrant pain. She has had no nausea or vomiting. She denies any fever and states he actually feels well. She is asking for food and says she is ?starving? Review of Systems Constitutional: Constitutional: Denies chills and Denies fever(s) Cardiovascular: Cardiovascular: Denies chest pain, Denies dyspnea and Denies dyspnea on exertion Respiratory: Respiratory: Denies cough, Denies dyspnea and Denies dyspnea on exertion Gastrointestinal: Gastrointestinal: Denies hematochezia and Denies change in bowel habits Genitourinary: Genitourinary: Denies hematuria Musculoskeletal: Musculoskeletal: Denies back pain and Denies limited range of motion Neurologic: Denies focal weakness and Denies convulsions Psychiatric: Psychiatric: Denies depression and Denies mood swings [facility] Past Medical History Medical History (Updated 06/20/21 @ 00:02 by Mikayla Velasco) Abnormal LFTs Gallstone High cholesterol Hypertension Morbid obesity with BMI of 45.0-49.9, adult Family History Family History Father Hyperlipidemia Diabetes mellitus COPD (chronic obstructive pulmonary disease) Mother Hyperlipidemia HTN (hypertension) Skin cancer Maternal Grandfather No problems noted. Maternal Grandmother No problems noted. Paternal Grandmother CHF (congestive heart failure) Dementia Paternal Grandfather No problems noted. Sister No problems noted. Son No problems noted. Son No problems noted. Surgical History Surgical History No pertinent past surgical history Social History Social History Housing: House Alcohol intake: never Patient Tobacco Use Status: Never used Tobacco Second Hand Smoke Exposure: No service: No Current occupational status: employed Meds Allergies Allergy/AdvReac Type Severity Reaction Status Date / Time No Known Allergies Allergy Unknown U Unverified 06/12/21 09:21 Active Medications: Current Medications Acetaminophen (Acetaminophen 325 Mg Tablet) 650 mg PO Q6H PRN PRN Reason: Pain, Mild (Pain Scale 1-3) Sodium Chloride (Ns) 1,000 mls @ 100 mls/hr IVCONT .Q10H [facility] Last Admin: 06/13/21 03:48 Dose: 100 mls/hr Documented by: Morphine Sulfate (Morphine Sulfate 4 Mg/Ml Cartridge) 3 mg IVPUSH Q4H PRN; Protocol PRN Reason: Pain, Severe (Pain Scale 7-10) Sodium Chloride (0.9 % Sodium Chloride Flush 3 Ml Syringe) 3 ml IVFLUSH QSHIFT [facility] Last Admin: 06/13/21 08:05 Dose: Not Given Documented by: Home Medications Medication Instructions Recorded Confirmed Last Taken Type ascorbic acid (vitamin C) 500 mg 500 mg PO DAILY 04/26/20 06/13/21 06/09/21 History capsule cholecalciferol (vitamin D3) 125 125 mcg PO BEDTIME 04/26/20 06/13/21 06/09/21 History mcg (5,000 unit) capsule omeprazole magnesium 20 mg 20 mg PO DAILY 06/12/21 06/13/21 06/09/21 History tablet,delayed release (Prilosec OTC) cyanocobalamin (vitamin B-12) 1,000 mcg PO TUSA 06/13/21 06/13/21 06/09/21 History 1,000 mcg tablet docusate sodium 100 mg tablet 100 mg PO BID PRN 06/13/21 06/13/21 06/09/21 History ferrous sulfate 324 mg (65 mg 324 mg PO TUSA 06/13/21 06/13/21 06/09/21 History iron) tablet,delayed release Physical Exam Vital Signs: Vital Signs: Last Vital Signs Temp 99.3 F 06/12/21 14:58 Pulse 78 06/13/21 00:56 Resp 14 06/13/21 00:56 BP 130/82 06/13/21 00:56 Pulse Ox 97 06/13/21 00:04 BMI result Body Mass Index 46.6 Const: Other: Appears morbidly obese General: comfortable and no acute distress Orientation/consciousness: patient oriented x3 Neck: Neck: Yes no lymphadenopathy Resp: Auscultation: clear to auscultation bilaterally Cardio: Rhythm: regular rhythm GI: Other: Has large pannus, no Guerra sign, no right upper quadrant tenderness Palpation (GI): Soft to palpation, nontender and no guarding Neuro: General: patient oriented x3 Results Results Labs: Short CBC 06/12/21 06/13/21 Range/Units 17:06 07:18 WBC 10.4 9.2 (4.8-10.8) X10*3/uL Hgb 13.0 12.1 (12.0-16.0) g/dl Hct 38.1 35.7 L (37.0-47.0) % Plt Count 329 D 265 (160-400) X10*3/uL BMP 06/12/21 17:06 Sodium 140 Potassium 3.4 Chloride 101 Carbon Dioxide 26 BUN 8 L Creatinine 0.71 Calcium 9.9 Liver Function 06/13/21 Range/Units 07:18 Total Bilirubin 1.2 H (0.0-1.0) mg/dL Direct Bilirubin 0.6 H (0.0-0.5) mg/dL AST 49 H D (5-31) U/L ALT 172 H (0-31) U/L Alkaline Phosphatase 190 H (39-117) U/L Albumin 3.8 (3.5-5.0) g/dL Urine 06/12/21 06/12/21 Range/Units 17:04 17:04 Urine Color YELLOW Urine Appearance CLEAR Urine pH 5.5 (5.0-8.0) Ur Specific [place] 1.020 (1.005-1.025) Urine Protein NEG (NEG-TRACE) MG/DL Urine Glucose (UA) NEG (NEG) MG/DL Urine Test NEGATIVE (NEGATIVE) Abdomen CT scan report/results: report reviewed and image reviewed CT scan - pelvis: report reviewed and image reviewed Assessment and Plan (1) Gallstone: Status: Acute Her ultrasound imaging study show gallstones. I have reviewed her CAT scan and there is some mild gallbladder wall thickening but otherwise, the gallbladder does not appear distended. Is no significant pericholecystic inflammatory changes. Furthermore, she does not have right upper quadrant tenderness to exam at this time. She has no Guerra's sign. She denies significant right upper quadrant pain and actually feels well. She does not have leukocytosis. Clinical findings do not suggest cholecystitis at this point. She had an episode of severe pain lasting for about 2 days until Wednesday. Overall clinical picture is c consistent with passage of a gall stone as suggested by her elevated bilirubin with rapid drop off today. She not been started on antibiotics as I do not feel this is indicated at this time. She her symptoms have resolved I did explain to her the option of proceeding with cholecystectomy today. I discussed with the technique of laparoscopic cholecystectomy and possible open. I reviewed the risks including but not limited to bleeding, infections, injury to bowel, injury liver and the bile duct, as well as the benefits and alternatives. She stated that she for not to proceed with any sugars intention today. She says she wants to start on diet and feels that she will go home today. She understands the risk of recurrences. She says she will come back to the ER if she does have recurrence the future. She says she will discuss with me in the office the option of proceeding with elective cholecystectomy. She states that she plans to lose some weight as she understands that her morbid obesity presents with operative risks. I will re-evaluate her today see how she is doing prior to discharging her. (2) Abnormal LFTs: Status: Resolved Over all clinical findings as above are consistent with passage of stone through the common bile duct. She says her symptoms have resolved. Her follow-up LFTs showed this is near normal this morning. does not want to proceed with surgery today. Quality Stroke Does the patient have a stroke diagnosis?: No VTE Prior VTE?: No VTE Risk Level:: Medical - moderate - high VTE Device Contraindication: N/A - Device Ordered VTE Drug Contraindication: Treatment Not Indicated Procedures Date of Service Date of Service: 06/13/21
[2021-06-13] MEDS: Acetaminophen 325 MG TABLET 650 MG PO (08:22)
[2021-06-13 08:27] LABS: COVID-19 Test Negative (Negative); IDNOW Serial# 16C4AD1C
--- NOTE | 2021-06-13 09:49 | PC.NURSE ---
Pts diet changed to regular diet, pt tolerating well. IVFs stopped per verbal order. PT resting in hospital bed. PRN tylenol given for 3/10 abdominal pain per request. Pt is alert and oriented. pt independent and walking around the unit. belongings within reach.
--- NOTE | 2021-06-13 12:41 | MHC.CM.PN ---
PT REPORTS SHE LIVES WITH HER AND KIDS AND IS COMPLETELY INDEPENDENT PT WORKS [employer] AND DRIVES PT HAS NO DME AND NO HOME SERVICES PT REPORTS SHE IS ACTIVE WITH [facility] FOR PRIMARY CARE PT WILL DC HOME TODAY WITH NO SERVICES TO TRANSPORT
--- NOTE | 2021-06-13 13:22 | PM.DS ---
DS: Providers Provider Date of Service: 06/13/21 <Esme Fuchs PA-C - Last Filed: 06/17/21 13:32> Date of admission: 06/13/21 00:35 <Esme Fuchs PA-C - Last Filed: 06/17/21 13:32> Primary care physician: Madina Esparza MD <Esme Fuchs PA-C - Last Filed: 06/17/21 13:32> Attending physician on admission: Kali Torres <Esme Fuchs PA-C - Last Filed: 06/17/21 13:32> DS: Diagnosis Discharge Diagnosis (1) Gallstone: Status: Acute <ANIA Flores Last Filed: 06/17/21 13:32> (2) Abnormal LFTs: Status: Acute <ANIA Flores Last Filed: 06/17/21 13:32> DS: Summary Hospital Course Hospital Course: BRIEF HPI: Mari Brito is a 41 year old female who was sent to the ER yesterday afternoon by the urgent care center because of abnormal lab tests. The patient describes having had some vague epigastric pain for about 1-2 weeks. She says that these had 2 days ago and she says that she did not come to work because of that. The pain eventually improved significantly after the that severe episode. However, she decided to go to the urgent care center yesterday coping to have an ultrasound scheduled. She had blood draws at the urgent care center and her bilirubin was elevated so she was instructed to go to the ER because of this. At that time however, she says the pain had improved significantly. She says that she was actually able to eat well yesterday and had good oral intake. Work up in the ED included CT scan abd/pelvis and US which showed gallstones with some mild gallbladder wall thickening but the gallbladder was not distended and there was no significant pericholecystic inflammation. She had no leukocytosis but did have elevated LFTs with a total/direct bilirubin of 1.2/0.6 which was actually improved from a couple of days earlier. Currently, she feels comfortable. She says she has minimal pain if at all and only on the epigastric area. She denies any right upper quadrant pain. She has had no nausea or vomiting. She denies any fever and states he actually feels well. She is asking for food and says she is ?starving?. HOSPITAL COURSE: Given her resolution of pain without any tenderness on exam, her clinical findings did not suggest cholecystitis at this point. Overall clinical picture consistent with passage of a gallstone as suggested by her elevated bilirubin with rapid improvement. She was kept given the elevated LFTs. Treatment options were discussed including proceeding with surgery and laparoscopic cholecystectomy possible open during this admission or discharge to home with f/u in office and plan for elective cholecystectomy. She chose elective. She understood the risks of recurrence with waiting. Her diet was advanced to low fat diet. She was reassesed and was tolerating a solid, low fat diet without recurrence of the pain, nausea or vomiting. She felt well and ready for discharge. She was discharged to home on 06/13/21 in stable condition. She is to follow up with Dr. Torres in office for plans for cholecystectomy. She is to have her LFTs repeated next week. <Esme Fuchs PA-C - Last Filed: 06/17/21 13:32> Status at Discharge Functional status at discharge: independent ambulation <ANIA Flores Last Filed: 06/17/21 13:32> Overall status at discharge: patient is progressing back to baseline <Esme Fuchs PA-C - Last Filed: 06/17/21 13:32> Time Spent with Patient Time attestation: Total time spent providing and/or coordinating discharge services: <Esme Fuchs PA-C - Last Filed: 06/17/21 13:32> Discharge coordination time: Greater than 30 minutes <ANIA Flores Last Filed: 06/17/21 13:32> Quality: Stroke Does the patient have a stroke diagnosis?: No <ANIA Flores Last Filed: 06/17/21 13:32> Physical Exam Vital Signs: Vital Signs: Last Vital Signs Temp 99.3 F 06/12/21 14:58 Pulse 78 06/13/21 00:56 Resp 14 06/13/21 00:56 BP 130/82 06/13/21 00:56 Pulse Ox 97 06/13/21 00:04 BMI result Body Mass Index 46.6 <Esme Fuchs PA-C - Last Filed: 06/17/21 13:32> Const: General: comfortable and no acute distress <Esme Fuchs PA-C - Last Filed: 06/17/21 13:32> Orientation/consciousness: patient oriented x3 <Esme Fuchs PA-C - Last Filed: 06/17/21 13:32> GI: Inspection: No distended <Esme Fuchs PA-C - Last Filed: 06/17/21 13:32> Palpation (GI): nontender, no guarding and not rigid <ANIA Flores Last Filed: 06/17/21 13:32> Skin: General skin exam: no rashes or lesions noted and no jaundice <Esme Fuchs PA-C - Last Filed: 06/17/21 13:32> Neuro: General: patient oriented x3 <ANIA Flores Last Filed: 06/17/21 13:32> Discharge Plan Discharge Patient Disposition: Home, Self-Care <ANIA Flores Last Filed: 06/17/21 13:32> Discharge Diagnosis: gallstones, abnormal LFTs <Esme Fuchs PA-C - Last Filed: 06/17/21 13:32> Referrals: Madina Esparza MD [Primary Care Provider] - 1 Week Kali Torres MD [Physician] - 2 Weeks <Esme Fuchs PA-C Last Filed: 06/17/21 13:32> Discharge Medications: Continued ascorbic acid (vitamin C) 500 mg capsule 500 mg PO DAILY 0RF cholecalciferol (vitamin D3) 125 mcg (5,000 unit) capsule 125 mcg PO BEDTIME 0RF norethindrone (contraceptive) [Rhiannon] 0.35 mg tablet 0.35 mg PO DAILY Qty: 28 5RF hydrochlorothiazide 25 mg tablet 25 mg PO DAILY 90 Days Qty: 90 0RF atorvastatin 20 mg tablet 20 mg PO BEDTIME 90 Days Qty: 90 0RF cyanocobalamin (vitamin B-12) 1,000 mcg Tablet 1,000 mcg PO TUSA 0RF docusate sodium 100 mg Tablet 100 mg PO BID PRN (Reason: Constipation) 0RF ferrous sulfate 324 mg (65 mg iron) tablet,delayed release (DR/EC) 324 mg PO TUSA 0RF omeprazole magnesium [Prilosec OTC] 20 mg tablet,delayed release (DR/EC) 20 mg PO DAILY 0RF <Esme Fuchs PA-C - Last Filed: 06/17/21 13:32> Discharge Orders: Discharge Order (Routine); Ordered 06/13/21 Ordered By: Kali Torres <Esme Fuchs PA-C - Last Filed: 06/17/21 13:32> Diet: low fat, low cholesterol <Esme Fuchs PA-C - Last Filed: 06/17/21 13:32> Activity on Discharge: As tolerated <ANIA Flores Last Filed: 06/17/21 13:32> Stand Alone Forms: Patient Portal Discharge page <ANIA Flores Last Filed: 06/17/21 13:32> Activity Restrictions/Additional Instructions: Call Your Doctor If: ? ? -Your temperature exceeds 101.5? F? ? ? -You experience excessive pain or swelling ? ? -You have an unexpected reaction to medication ? ? -You experience increasing pain or continued vomiting/nausea <Esme Fuchs PA-C - Last Filed: 06/17/21 13:32> Care Plan Goals: Resolution of pain <ANIA Flores Last Filed: 06/17/21 13:32> Health Concerns: Gallstones, abnormal LFTs <Esme Fuchs PA-C - Last Filed: 06/17/21 13:32> Plan of Treatment: Low fat diet F/u in office with Dr. Torres regarding elective CCY <ANIA Flores Last Filed: 06/17/21 13:32> Assessment: Improved <ANIA Flores Last Filed: 06/17/21 13:32> Discharge Date/Time: 06/13/21 13:57 <Esme Fuchs PA-C - Last Filed: 06/17/21 13:32>
--- NOTE | 2021-06-13 13:37 | PM.EVENT ---
Event Note Date of Service: 06/13/21 Event Note: says she feels well tolerating diet abd soft LFTs have dropped down significantly she again states she wants to be discharged says she will think of cholecystectomy down the line she is aware of risks of recurrent pain
--- NOTE | 2021-06-13 13:48 | PC.NURSE ---
Pt is alert and oriented, provided with DC instructions and verbalized understanding of teachings.
== END 2021-06-13 13:57 | disposition home or self-care (01) ==
LOC: HO.ED 19:38 → HO.EDOVER 06-13 00:54
PROVIDERS: Admitting Provider Surgery; Emergency Provider Emergency Medicine; PCP Internal Medicine; Visit Provider Surgery
DX: K80.80 Other cholelithiasis without obstruction (principal); Z68.42 Body mass index [BMI] 45.0-49.9, adult; I10 Essential (primary) hypertension; E66.01 Morbid (severe) obesity due to excess calories; E78.00 Pure hypercholesterolemia, unspecified; Z20.822 Contact with and (suspected) exposure to COVID-19; Z79.3 Long term (current) use of hormonal contraceptives; Z79.899 Other long term (current) drug therapy
CPT/HCPCS: 36415; 74177; 76705; 80048; 80076; 81001; 81025; 83690; 85025; 85027; 87086; 87635; 99285; J2543; Q9967

== ENCOUNTER 2021-06-21 07:18 | Outpatient (REF) | payer OTHER, SELFPAY ==
[2021-06-21 07:37] LABS: MANUAL DIFF FLAG NO
[2021-06-21 09:28] LABS: Basophils Percent Auto 0.4 % (0-2); Eosinophils Absolute Auto 0.2 X10*3/uL (0.0-0.4); Hematocrit 37.4 % (37.0-47.0); Hemoglobin 12.5 g/dl (12.0-16.0); Imm Gran Abs Auto 0.03 X10*3/uL (0.00-0.03); Imm Gran Pct Auto 0.4 % (0.0-0.4); Lymphocytes Absolute Auto 2.3 X10*3/uL (1.2-4.9); Lymphocytes Percent Auto 34.8 % (20-40); Mean Corpuscular HGB Conc 33.4 g/dl (31.0-35.0); Mean Corpuscular Hemoglobin 29.1 pg (27.0-33.0); Mean Platelet Volume 10.7 fL (9.4-12.3); Monocytes Absolute Auto 0.6 X10*3/uL (0.1-1.2); Monocytes Percent Auto 9.4 % (2-11); Neutrophils Absolute Auto 3.5 x10*3/uL (2.0-8.3); Platelet Count 229 X10*3/uL (160-400); Red Cell Distribution Width 13.2 % (11.0-16.0); White Blood Count 6.7 X10*3/uL (4.8-10.8)
[2021-06-21 10:07] LABS: Alanine Aminotransferase 43 U/L (0-31); Albumin Level 4.1 g/dL (3.5-5.0); Alkaline Phosphatase 121 U/L (39-117); Anion Gap 14 (12-20); Aspartate Amino Transferase 20 U/L (5-31); Bilirubin Total 0.6 mg/dL (0.0-1.0); Blood Urea Nitrogen 12 mg/dL (9-16); Calcium 9.6 mg/dL (8.4-10.2); Carbon Dioxide 27 mmol/L (22-29); Chloride 103 mmol/L (96-108); Cholesterol 159 mg/dL; Estimated Glomerular Filt Rate > 60; Glucose Fasting 93 mg/dL (60-99); HDL Cholesterol 27 mg/dL; LDL Cholesterol Calculated 116 mg/dl; Potassium 4.3 mmol/L (3.3-5.1); Sodium 140 mmol/L (135-145); Total Protein 7.4 g/dL (6.5-8.0); Triglycerides 80 mg/dL
[2021-06-21 10:16] LABS: Ferritin 31 ng/mL (10-250)
[2021-06-23 09:17] LABS: Vitamin B12 951 pg/mL (200-900)
== END 2021-06-21 07:19 | disposition home or self-care (01) ==
LOC: HO.LAB 07:18
PROVIDERS: PCP Internal Medicine; Visit Provider Internal Medicine
DX: I10 Essential (primary) hypertension (principal); E78.9 Disorder of lipoprotein metabolism, unspecified; D50.9 Iron deficiency anemia, unspecified; E53.8 Deficiency of other specified B group vitamins
CPT/HCPCS: 36415; 80053; 80061; 82607; 82728; 85025

== ENCOUNTER → 2021-07-23 08:48 | Outpatient (BNVA) | payer OTHER, SELFPAY | PROVIDERS: PCP Internal Medicine; Visit Provider Advanced Practice Midwife | DX: Z13.89 Encounter for screening for other disorder (principal) ==

== ENCOUNTER → 2021-07-24 10:07 | Outpatient (BNVA) | payer OTHER, SELFPAY | PROVIDERS: PCP Internal Medicine; Referring Provider Internal Medicine; Visit Provider Surgery | DX: K80.20 Calculus of gallbladder without cholecystitis without obstruction (principal) ==

== ENCOUNTER 2021-11-20 13:06 | Outpatient (REF) | payer OTHER, SELFPAY ==
--- NOTE | ~2021-11-20 | MM_ITS ---
EXAMINATION: MM SCREENING DIGITAL BREAST TOMOSYNTHESIS, BILATERAL CLINICAL INFORMATION: Screening. Asymptomatic. The lifetime risk of breast cancer based on the Tyrer-Cuzick Model is 10%. COMPARISON: Mammography: 07/17/2020 (baseline). TECHNIQUE: Digital breast tomosynthesis is performed in both the craniocaudal and mediolateral oblique views along with computer-aided detection (CAD). Synthesized 2D images are generated from the tomosynthesis. Additional right CC and bilateral MLO views are provided. FINDINGS: The breasts are almost entirely fatty (ACR BI-RADS breast composition Category a). Background stromal markings are normal. There is intramammary node again seen posterior upper outer right breast. No abnormal calcifications. No developing density or architectural changes. The axilla are unremarkable. MM/MM tomosynthesis screening BI IMPRESSION: No mammographic evidence of malignancy. ASSESSMENT: BI-RADS 1: Negative RECOMMENDATION: Routine annual mammography screening. This patient's information was entered into a reminder system with a target due date for their next mammogram.
== END 2021-11-20 13:07 | disposition home or self-care (01) ==
LOC: HO.MAMMO 13:06
PROVIDERS: Visit Provider Advanced Practice Midwife
DX: Z12.31 Encounter for screening mammogram for malignant neoplasm of breast (principal)
CPT/HCPCS: 77063; 77067

== ENCOUNTER 2022-05-22 06:32 | Outpatient (REF) | payer OTHER, SELFPAY ==
[2022-05-22 06:38] LABS: MANUAL DIFF FLAG NO
[2022-05-22 07:46] LABS: Basophils Percent Auto 0.4 % (0-2); Eosinophils Absolute Auto 0.1 X10*3/uL (0.0-0.4); Eosinophils Percent Auto 1.6 % (0-4); Hemoglobin 12.6 g/dl (12.0-16.0); Imm Gran Abs Auto 0.03 X10*3/uL (0.00-0.03); Imm Gran Pct Auto 0.4 % (0.0-0.4); Lymphocytes Absolute Auto 2.5 X10*3/uL (1.2-4.9); Lymphocytes Percent Auto 30.7 % (20-40); Mean Corpuscular HGB Conc 34.1 g/dl (31.0-35.0); Mean Corpuscular Hemoglobin 30.1 pg (27.0-33.0); Mean Corpuscular Volume 88.5 fL (80.0-98.0); Mean Platelet Volume 10.2 fL (9.4-12.3); Monocytes Absolute Auto 0.8 X10*3/uL (0.1-1.2); Monocytes Percent Auto 9.7 % (2-11); Neutrophils Absolute Auto 4.7 x10*3/uL (2.0-8.3); Neutrophils Percent Auto 57.2 % (45-73); Platelet Count 258 X10*3/uL (160-400); Red Blood Count 4.18 X10*6/uL (4.20-5.50); Red Cell Distribution Width 12.9 % (11.0-16.0); White Blood Count 8.3 X10*3/uL (4.8-10.8)
[2022-05-22 08:22] LABS: Alanine Aminotransferase 60 U/L (0-31); Alkaline Phosphatase 98 U/L (39-117); Anion Gap 14 (12-20); Aspartate Amino Transferase 33 U/L (5-31); Bilirubin Total 0.5 mg/dL (0.0-1.0); Blood Urea Nitrogen 14 mg/dL (9-16); Calcium 8.9 mg/dL (8.4-10.2); Carbon Dioxide 27 mmol/L (22-29); Chloride 103 mmol/L (96-108); Estimated Glomerular Filt Rate > 60; Glucose Fasting 95 mg/dL (60-99); Potassium 4.4 mmol/L (3.3-5.1); Sodium 140 mmol/L (135-145)
[2022-05-22 08:37] LABS: Ferritin 36 ng/mL (10-250); TSH reflex Free T4 2.69 uIU/mL (0.32-4.0); Vitamin B12 434 pg/mL (200-900)
== END 2022-05-22 06:33 | disposition home or self-care (01) ==
LOC: HO.LAB 06:32
PROVIDERS: PCP Internal Medicine; Visit Provider Internal Medicine
DX: Z00.01 Encounter for general adult medical examination with abnormal findings (principal); D64.9 Anemia, unspecified; E53.8 Deficiency of other specified B group vitamins; E55.9 Vitamin D deficiency, unspecified; E78.9 Disorder of lipoprotein metabolism, unspecified; I10 Essential (primary) hypertension; E66.01 Morbid (severe) obesity due to excess calories; Z68.42 Body mass index [BMI] 45.0-49.9, adult
CPT/HCPCS: 36415; 80053; 82607; 82728; 84443; 85025

== ENCOUNTER → 2022-07-27 09:21 | Outpatient (BNVA) | payer OTHER, SELFPAY | PROVIDERS: PCP Internal Medicine; Visit Provider Advanced Practice Midwife ==

== ENCOUNTER 2022-11-20 11:00 | Outpatient (AMB) | payer OTHER, SELFPAY ==
[2022-11-20 11:09] VITALS: BP 118/78; PULSE 78; O2SAT 98; BMI 49.3
--- NOTE | 2022-11-20 11:09 | A.OFFPC_ITS ---
Vital Signs 11/20/22 11:09 Height 5 ft 2 in Weight 269 lb 6 oz BMI 49.3 BP 118/78 Blood Pressure Location Rt brachial Position Sitting Pulse 78 Pulse Source Pulse Oximeter Pulse Oximetry (%) 98 Oxygen Delivery Method Room Air Intake Visit Reasons: annual PE Allergies No Known Allergies Allergy (Unknown, Verified 11/20/22 11:10) U Medication List - Last Reconciled 11/20/22 by Madina Esparza MD ascorbic acid (vitamin C) 500 mg PO DAILY atorvastatin 20 mg PO BEDTIME 90 days cholecalciferol (vitamin D3) 125 mcg PO BEDTIME cyanocobalamin (vitamin B-12) 1,000 mcg PO TUSA docusate sodium 100 mg PO BID PRN ferrous sulfate 324 mg PO TUSA hydrochlorothiazide 25 mg PO DAILY 90 days norethindrone (contraceptive) (Rhiannon) 0.35 mg PO DAILY omeprazole magnesium (Prilosec OTC) 20 mg PO DAILY Tobacco use date assessed: 11/20/22 Dental Screening Dental Screen Date: 11/20/22 Did you have a dental visit in the last 12 months?: Yes Did you have a dental problem in the last 6 months where you did not have access to dental care?: No Was dental information given to patient?: No HPI annual PE HPI Details Patient is a 42-year-old female came in today for physical exam Mammogram is up-to-date Pap smear is up-to-date Due for labs to be done fasting Patient is complaining of pain left foot on the side I have ordered x-ray for her We will also place a referral for her to be evaluated by sammying machine operator She is on iron supplement along with B12 and vitamin-D supplement BMI is 49.3 I have placed an order for dietitian consultation. Medication list reviewed blood pressure is stable GERD is stable Follow-up 4 months [facility] [place] Medical History Abnormal LFTs Gallstone High cholesterol Hypertension Morbid obesity with BMI of 45.0-49.9, adult Surgical History No pertinent past surgical history Family History Father Hyperlipidemia Diabetes mellitus COPD (chronic obstructive pulmonary disease) Mother Hyperlipidemia HTN (hypertension) Skin cancer Maternal Grandfather No problems noted. Maternal Grandmother No problems noted. Paternal Grandmother CHF (congestive heart failure) Dementia Paternal Grandfather No problems noted. Sister No problems noted. Son No problems noted. Son No problems noted. Social History Housing: House Alcohol intake: never Patient Tobacco Use Status: Never used Tobacco e-Cigarette/Vaping Use: Never Used Second Hand Smoke Exposure: No service: No Current occupational status: employed Current occupational exposures/hazards: No Sexual orientation: Straight/Heterosexual Gender identity: Female Cognitive needs: No Hearing needs: No Vision needs: Yes Questionnaire PHQ-9 Over the last 2 weeks, how often have you been bothered by any of the following problems? 1. Little interest or pleasure in doing things: not at all 2. Feeling down, depressed, or hopeless: not at all 3. Trouble falling or staying asleep, or sleeping too much: not at all 4. Feeling tired or having little energy: several days 5. Poor appetite or overeating: several days 6. Feeling bad about yourself - or that you are a failure or have let yourself or your family down: not at all 7. Trouble concentrating on things, such as reading the newspaper or watching television: not at all 8. Moving or speaking so slowly that other people could have noticed. Or the opposite - being so fidgety or restless that you have been moving around a lot more than usual: not at all 9. Thoughts that you would be better off or of hurting yourself in some way: not at all Total score: 2 Depression Screening Interpretation: Negative [id number] - PHQ-9 Billing: Yes Source: Developed by Drs. Shant Hansen, Tae Springer, Devon Chawla and colleagues, with an educational chandler from [email or web address]. Thrive Questionnaire Date Thrive assessed: 11/20/22 I am a: Patient What is your living situation today?: I have a steady place to live Within the past 12 months, did the food you bought not last and you didn't have the money to get more?: Never true Within the past 12 months, did you worry whether your food would run out before you got money to buy more?: Never true Do you have trouble paying for medicines?: No Do you have trouble getting transportation to medical appointments?: No Do you have trouble paying your heating and electricity bill?: No Do you have trouble taking care of your child, family member or friend?: No Do you have trouble with day-to-day activities such as bathing, preparing meals, shopping, managing finances, etc.?: No Are you currently unemployed and looking for a job?: No Are you interested in more education?: No Currently or been in a relationship where the following occur: no concerns reported AUDIT C Alcohol Use Questionnaire (AUDIT-C) 1. How often do you have a drink containing alcohol?: Never 3. How often do you have six or more drinks on one occasion?: Never Total Score: 0 Score Reviewed/Action Taken: Yes YUE-7 AMB Questionnaire YUE-7 Date YUE - 7 assessed: 11/20/22 Feeling nervous, anxious, or on edge: 0 = Not at all Not being able to stop or control worryin = Not at all Worrying too much about different things: 0 = Not at all Trouble relaxin = Not at all Being so restless that it is hard to sit still: 0 = Not at all Becoming easily annoyed or irritable: 0 = Not at all Feeling afraid as if something awful might happen: 0 = Not at all Total YUE-7 score (0-4 normal; 5-9 mild; 10-14 moderate; 15-21 severe): 0 Source: Developed by Drs. Shant Hansen, Tea Springer, Devon Chawla and colleagues, with an educational chandler from [email or web address]. YUE-7 Assessment Billing YUE-7 Assessment Tool: YUE-7 Assessment 17766 Review of Systems Const Denies chills, Denies fever(s) and Denies headache(s) Eyes Denies blurry vision ENT Denies headache(s), Denies nasal discharge, Denies nasal obstruction, Denies odynophagia and Denies sinus pain Card Denies chest pain at rest and Denies chest pain with activity Resp Denies cough and Denies hemoptysis GI Denies diarrhea, Denies odynophagia, Denies vomiting and Denies hematemesis Reports as per HPI Musc Denies abnormal gait Skin/Breast Reports as per HPI Neuro Denies Neuro-related abnormal movements, Denies Abnormal speech present, Denies abnormal gait, Denies headache(s) and Denies Sensory deficit (Neuro) Psych Denies mood swings and Denies paranoia Endo Reports as per HPI Rodriguez/Lymph Reports as per HPI Aller/Immun Reports as per HPI Physical exam (Primary Care) Vital Signs: Last Vital Signs Pulse 78 11/20/22 11:09 BP 118/78 11/20/22 11:09 Pulse Ox 98 11/20/22 11:09 Oxygen Delivery Method Room Air 11/20/22 11:09 BMI result Body Mass Index 49.3 BMI Assessment/Plan discussion: High Tobacco/Smoking Status: Tobacco use Status Tobacco use date assessed 11/20/22 11/20/22 11:13 Patient Tobacco Use Status Never used Tobacco 11/20/22 11:13 e-Cigarette/Vaping Use Never Used 11/20/22 11:13 PHQ-9: PHQ-9 Score PHQ-9: Total score 2 11/20/22 11:32 Depression Screening Interpretation: Negative Thrive Assessment: Date of Thrive Assessment Date Thrive assessed 11/20/22 11/20/22 11:32 Currently or been in a relationship where the following occur: no concerns reported Const General: cooperative, comfortable and no acute distress Orientation/consciousness: patient oriented x3 HENMT Head: Yes normocephalic and Yes atraumatic Eyes General: appearance normal, both eyes and all related structures Pupils: Equal, round and reactive pupils present EOM: EOMs intact bilaterally Neck Neck: Yes supple and No lymphadenopathy Thyroid: Thyroid normal Lymphatic: no lymphadenopathy noted Resp Effort & Inspection: normal respiratory effort and able to speak in complete sentences Auscultation: clear to auscultation bilaterally Cardio Heart sounds: S1 normal heart sound present and S2 normal heart sound present GI Palpation (GI): Soft to palpation and nontender Auscultation: normal bowel sounds General: Yes no CVA tenderness Back/Spine/Pelvis Back: no CVA tenderness Skin General skin exam: elasticity normal and turgor normal Neuro General: patient oriented x3 and gait normal Cranial nerves: Yes Equal, round and reactive pupils present Speech: No Abnormal speech present Sensory Exam: No Sensory deficit (Neuro) Coordination: tandem gait normal and Romberg test negative Extrem General: Yes normal exam except as noted and No edema Ankle/foot/toe images: 1. Pain with palpation Assessment and Plan Assessment & Plan (1) Encounter for general adult medical examination with abnormal findings: Code(s): Z00.01 - Encounter for general adult medical examination with abnormal findings (2) Abnormal LFTs: Code(s): R79.89 - Other specified abnormal findings of blood chemistry (3) Hypertension, essential: Code(s): I10 - Essential (primary) hypertension (4) Lipid disorder: Code(s): E78.9 - Disorder of lipoprotein metabolism, unspecified (5) Vitamin D deficiency: Code(s): E55.9 - Vitamin D deficiency, unspecified (6) Morbid obesity with BMI of 45.0-49.9, adult: Code(s): E66.01 - Morbid (severe) obesity due to excess calories; Z68.42 - Body mass index [BMI] 45.0-49.9, adult (7) Iron deficiency anemia: Code(s): D50.9 - Iron deficiency anemia, unspecified Qualifiers: Iron deficiency anemia type: unspecified iron deficiency Qualified Code(s): D50.9 - Iron deficiency anemia, unspecified (8) B12 deficiency: Code(s): E53.8 - Deficiency of other specified B group vitamins (9) Foot pain, left: Code(s): M79.672 - Pain in left foot Plan Patient is a 42-year-old female came in today for physical exam Mammogram is up-to-date Pap smear is up-to-date Due for labs to be done fasting Patient is complaining of pain left foot on the side I have ordered x-ray for her We will also place a referral for her to be evaluated by sammying machine operator She is on iron supplement along with B12 and vitamin-D supplement BMI is 49.3 I have placed an order for dietitian consultation. Medication list reviewed blood pressure is stable GERD is stable Follow-up 4 months Orders: Orders XR foot LT 2V Today M79.672 - Pain in left foot Vitamin B12 Today D50.9 - Iron deficiency anemia, unspecified, E53.8 - Deficiency of other specified B group vitamins, E55.9 - Vitamin D deficiency, unspecified, E66.01 - Morbid (severe) obesity due to excess calories, E78.9 - Disorder of lipoprotein metabolism, unspecified, I10 - Essential (primary) hyp ertension, M79.672 - Pain in left foot, R79.89 - Other specified abnormal findings of blood chemistry, Z00.01 - Encounter for general adult medical examination with abnormal findings, Z68.42 - Body mass index [BMI] 45.0-49.9, adult Comprehensive [place]. Panel Fast Today D50.9 - Iron deficiency anemia, unspecified, E53.8 - Deficiency of other specified B group vitamins, E55.9 - Vitamin D deficiency, unspecified, E66.01 - Morbid (severe) obesity due to excess calories, E78.9 - Disorder of lipoprotein metabolism, unspecified, I10 - Essential (primary) hypertension, M79.672 - Pain in left foot, R79.89 - Other specified abnormal findings of blood chemistry, Z00.01 - Encounter for general adult medical examination with abnormal findings, Z68.42 - Body mass index [BMI] 45.0-49.9, adult Lipid Panel Today D50.9 - Iron deficiency anemia, unspecified, E53.8 - Deficiency of other specified B group vitamins, E55.9 - Vitamin D deficiency, unspecified, E66.01 - Morbid (severe) obesity due to excess calories, E78.9 - Disorder of lipoprotein metabolism, unspecified, I10 - Essential (primary) hypertension, M79.672 - Pain in left foot, R79.89 - Other specified abnormal findings of blood chemistry, Z00.01 - Encounter for general adult medical exami nation with abnormal findings, Z68.42 - Body mass index [BMI] 45.0-49.9, adult TSH reflex Free T4 Today D50.9 - Iron deficiency anemia, unspecified, E53.8 - Deficiency of other specified B group vitamins, E55.9 - Vitamin D deficiency, unspecified, E66.01 - Morbid (severe) obesity due to excess calories, E78.9 - Disorder of lipoprotein metabolism, unspecified, I10 - Essential (primary) hypertension, M79.672 - Pain in left foot, R79.89 - Other specified abnormal findings of blood chemistry, Z00.01 - Encounter for general adult medical examination with abnormal findings, Z68.42 - Body mass index [BMI] 45.0-49.9, adult Vitamin D 25-OH (D2 and D3) Today D50.9 - Iron deficiency anemia, unspecified, E53.8 - Deficiency of other specified B group vitamins, E55.9 - Vitamin D deficiency, unspecified, E66.01 - Morbid (severe) obesity due to excess calories, E78.9 - Disorder of lipoprotein metabolism, unspecified, I10 - Essential (primary) hypertension, M79.672 - Pain in left foot, R79.89 - Other specified abnormal findings of blood chemistry, Z00.01 - Encounter for general adult medical examination with abnormal findings, Z68.42 - Body mass index [BMI] 45.0-49.9, adult Complete Blood Count Auto Diff Today D50.9 - Iron deficiency anemia, unspecified, E53.8 - Deficiency of other specified B group vitamins, E55.9 - Vitamin D deficiency, unspecified, E66.01 - Morbid (severe) obesity due to excess calories, E78.9 - Disorder of lipoprotein metabolism, unspecified, I10 - Essential (primary) hypertension, M79.672 - Pain in left foot, R79.89 - Other specified abnormal findings of blood chemistry, Z00.01 - Encounter for general adult medical examination with abnormal findings, Z68.42 - Body mass index [BMI] 45.0-49.9, adult Ferritin Today D50.9 - Iron deficiency anemia, unspecified, E53.8 - Deficiency of other specified B group vitamins, E55.9 - Vitamin D deficiency, unspecified, E66.01 - Morbid (severe) obesity due to excess calories, E78.9 - Disorder of lipoprotein metabolism, unspecified, I10 - Essential (primary) hypertension, M79.672 - Pain in left foot, R79.89 - Other specified abnormal findings of blood chemistry, Z00.01 - Encounter for general adult medical examination with abnormal findings, Z68.42 - Body mass index [BMI] 45.0-49.9, adult Coding Level of Care Code Est [facility] Care 40-64y([id number]) Diagnoses Encounter for general adult medical examination with abnormal findings Z00.01 Abnormal LFTs R79.89 Hypertension, essential I10 Lipid disorder E78.9 Vitamin D deficiency E55.9 Morbid obesity with BMI of 45.0-49.9, adult E66.01; Z68.42 Iron deficiency anemia D50.9 Iron deficiency anemia type: unspecified iron deficiency B12 deficiency E53.8 Foot pain, left M79.672 Additional Codes YUE-7 Assessment Billing - YUE-7 Assessment Tool: YUE-7 Assessment [id number] ([id number])
== END 2022-11-20 11:29 | disposition home or self-care (01) ==
PROVIDERS: Visit Provider Internal Medicine
DX: Z00.00 Encounter for general adult medical examination without abnormal findings (principal); I10 Essential (primary) hypertension; E66.01 Morbid (severe) obesity due to excess calories; Z68.42 Body mass index [BMI] 45.0-49.9, adult; E55.9 Vitamin D deficiency, unspecified; R79.89 Other specified abnormal findings of blood chemistry; E78.9 Disorder of lipoprotein metabolism, unspecified; D50.9 Iron deficiency anemia, unspecified; E53.8 Deficiency of other specified B group vitamins; M79.672 Pain in left foot
CPT/HCPCS: 99396

== ENCOUNTER 2022-11-24 12:16 | Outpatient (REF) | payer OTHER, SELFPAY ==
--- NOTE | ~2022-11-24 | MM_ITS ---
EXAMINATION: MM SCREENING DIGITAL BREAST TOMOSYNTHESIS, BILATERAL CLINICAL INFORMATION: Screening. Asymptomatic. COMPARISON: Mammography: 11/20/2021, 07/17/2020 TECHNIQUE: Digital breast tomosynthesis is performed in both the craniocaudal and mediolateral oblique views along with computer-aided detection (CAD). Synthesized 2D images are generated from the tomosynthesis. Additional bilateral CC and bilateral MLO views are provided. FINDINGS: The breasts are almost entirely fatty (ACR BI-RADS breast composition Category a). There are no suspicious masses, suspicious grouped calcifications, or areas of architectural distortion. The parenchymal pattern is stable from prior exams. Intramammary lymph node again noted upper outer right breast. MM/MM tomosynthesis screening BI IMPRESSION: No mammographic evidence of malignancy. ASSESSMENT: BI-RADS BI-RADS 1 - Negative RECOMMENDATION: Routine annual mammography screening. 1 year F/U This examination should not preclude the clinical evaluation of a suspicious palpable abnormality. This patient's information was entered into a reminder system with a target due date for their next mammogram.
== END 2022-11-24 12:17 | disposition home or self-care (01) ==
LOC: HO.MAMMO 12:16
PROVIDERS: Visit Provider Internal Medicine
DX: Z12.31 Encounter for screening mammogram for malignant neoplasm of breast (principal)
CPT/HCPCS: 77063; 77067

== ENCOUNTER → 2022-11-24 12:30 | Outpatient (BNV) | payer OTHER, SELFPAY | PROVIDERS: Visit Provider Radiology Diagnostic Radiology | DX: Z12.31 Encounter for screening mammogram for malignant neoplasm of breast (principal) | CPT/HCPCS: 77063; 77067 ==

== ENCOUNTER 2022-11-27 08:00 | Outpatient (REF) | payer OTHER, SELFPAY ==
--- NOTE | ~2022-11-27 | XR_ITS ---
EXAMINATION: XR FOOT, LEFT CLINICAL INFORMATION: Left foot pain COMPARISON: None available. TECHNIQUE: AP, lateral, and oblique views of the left foot. FINDINGS: The bones and soft tissues are normal. No fracture. Alignment is anatomic. Joint spaces are maintained. The ankle mortise and subtalar joints are normal. XR/XR foot LT 2V IMPRESSION: Unremarkable left foot exam.
[2022-11-27 08:33] LABS: MANUAL DIFF FLAG NO
[2022-11-27 09:40] LABS: Basophils Percent Auto 0.4 % (0-2); Eosinophils Absolute Auto 0.2 X10*3/uL (0.0-0.4); Eosinophils Percent Auto 2.1 % (0-4); Hematocrit 36.1 % (37.0-47.0); Hemoglobin 12.6 g/dl (12.0-16.0); Imm Gran Abs Auto 0.03 X10*3/uL (0.00-0.03); Imm Gran Pct Auto 0.4 % (0.0-0.4); Lymphocytes Absolute Auto 2.4 X10*3/uL (1.2-4.9); Lymphocytes Percent Auto 32.1 % (20-40); Mean Corpuscular HGB Conc 34.9 g/dl (31.0-35.0); Mean Corpuscular Hemoglobin 31.3 pg (27.0-33.0); Mean Corpuscular Volume 89.6 fL (80.0-98.0); Monocytes Absolute Auto 0.7 X10*3/uL (0.1-1.2); Monocytes Percent Auto 9.8 % (2-11); Neutrophils Absolute Auto 4.2 x10*3/uL (2.0-8.3); Neutrophils Percent Auto 55.2 % (45-73); Platelet Count 260 X10*3/uL (160-400); Red Blood Count 4.03 X10*6/uL (4.20-5.50); Red Cell Distribution Width 12.4 % (11.0-16.0); White Blood Count 7.5 X10*3/uL (4.8-10.8)
[2022-11-27 10:37] LABS: Alanine Aminotransferase 18 U/L (0-31); Albumin Level 4.1 g/dL (3.5-5.0); Alkaline Phosphatase 99 U/L (39-117); Anion Gap 11 (12-20); Aspartate Amino Transferase 16 U/L (5-31); Bilirubin Total 0.5 mg/dL (0.0-1.0); Blood Urea Nitrogen 17 mg/dL (9-16); Calcium 9.7 mg/dL (8.4-10.2); Carbon Dioxide 28 mmol/L (22-29); Chloride 105 mmol/L (96-108); Cholesterol 153 mg/dL (<200); Estimated Glomerular Filt Rate > 60; Ferritin 35 ng/mL (10-250); Glucose Fasting 99 mg/dL (60-99); HDL Cholesterol 31 mg/dL (>40); LDL Cholesterol Calculated 96 mg/dL (<100); Potassium 4.3 mmol/L (3.3-5.1); Sodium 140 mmol/L (135-145); Total Protein 7.3 g/dL (6.5-8.0); Triglycerides 130 mg/dL (<150)
[2022-11-27 10:47] LABS: Vitamin B12 415 pg/mL (200-900)
[2022-12-02 15:12] LABS: Vitamin D 25-OH, D2 <4 ng/mL; Vitamin D 25-OH, D3 32 ng/mL; Vitamin D 25-OH, Total 32 ng/mL (30-100)
== END 2022-11-27 08:01 | disposition home or self-care (01) ==
LOC: HO.XRAY 08:00
PROVIDERS: PCP Internal Medicine; Visit Provider Internal Medicine
DX: Z00.01 Encounter for general adult medical examination with abnormal findings (principal); I10 Essential (primary) hypertension; E78.9 Disorder of lipoprotein metabolism, unspecified; E55.9 Vitamin D deficiency, unspecified; E66.01 Morbid (severe) obesity due to excess calories; D50.9 Iron deficiency anemia, unspecified; E53.8 Deficiency of other specified B group vitamins; R79.89 Other specified abnormal findings of blood chemistry; M79.672 Pain in left foot; Z68.42 Body mass index [BMI] 45.0-49.9, adult
CPT/HCPCS: 36415; 73620; 80053; 80061; 82306; 82607; 82728; 84443; 85025

== ENCOUNTER 2023-03-24 10:13 | Outpatient (AMB) | payer OTHER, SELFPAY ==
--- NOTE | 2023-03-24 10:15 | MHC.PC.OV ---
Vital Signs 03/24/23 10:17 Height 5 ft 2 in Weight 255 lb BMI 46.6 BP 122/80 Blood Pressure Location Rt brachial Position Sitting Pulse 74 Pulse Source Pulse Oximeter Pulse Oximetry (%) 97 Oxygen Delivery Method Room Air Intake Visit Reasons: 4 Month follow up Allergies No Known Allergies Allergy (Unknown, Verified 03/24/23 10:17) U Medication List - Last Reconciled 03/24/23 by Madina Esparza MD ascorbic acid (vitamin C) 500 mg PO DAILY atorvastatin 20 mg PO BEDTIME 90 days cholecalciferol (vitamin D3) 125 mcg PO BEDTIME cyanocobalamin (vitamin B-12) 1,000 mcg PO TUSA docusate sodium 100 mg PO BID PRN ferrous sulfate 324 mg PO TUSA hydrochlorothiazide 25 mg PO DAILY 90 days norethindrone (contraceptive) (Rhiannon) 0.35 mg PO DAILY omeprazole magnesium (Prilosec OTC) 20 mg PO DAILY Tobacco use date assessed: 03/24/23 Dental Screening Dental Screen Date: 03/24/23 Did you have a dental visit in the last 12 months?: Yes Did you have a dental problem in the last 6 months where you did not have access to dental care?: No Was dental information given to patient?: Patient has dentist HPI 4 Month follow up HPI Details 42-year-old female came in today for her follow-up appointment History of iron-deficiency anemia, still taking iron supplement once a week Last time she had labs in November her H&H was stable. We will repeat labs again before her visit in July and I have ordered ferritin level as well. Meanwhile continue vitamin-B 12 and vitamin-D supplement Lipid disorder: Continue atorvastatin 20 mg no side effects.? Blood pressure is stable patient is on hydrochlorothiazide 25 mg daily Dyspepsia stable with omeprazole 20 mg.? [id number] Morbid obesity, patient is trying to lose weight Currently patient is taking all her medication as prescribed and she is stable. [facility] Medical History Abnormal LFTs Gallstone Morbid obesity with BMI of 45.0-49.9, adult High cholesterol Hypertension Surgical History No pertinent past surgical history Family History Father Hyperlipidemia Diabetes mellitus COPD (chronic obstructive pulmonary disease) Mother Hyperlipidemia HTN (hypertension) Skin cancer Maternal Grandfather No problems noted. Maternal Grandmother No problems noted. Paternal Grandmother CHF (congestive heart failure) Dementia Paternal Grandfather No problems noted. Sister No problems noted. Son No problems noted. Son No problems noted. Social History Housing: House Alcohol intake: never Patient Tobacco Use Status: Never used Tobacco e-Cigarette/Vaping Use: Never Used Second Hand Smoke Exposure: No service: No Current occupational status: employed Current occupational exposures/hazards: No Sexual orientation: Straight/Heterosexual Gender identity: Female Cognitive needs: No Hearing needs: No Vision needs: Yes Questionnaire Thrive Questionnaire Date Thrive assessed: 03/24/23 I am a: Patient What is your living situation today?: I have a steady place to live Within the past 12 months, did the food you bought not last and you didn't have the money to get more?: Never true Within the past 12 months, did you worry whether your food would run out before you got money to buy more?: Never true Do you have trouble paying for medicines?: No Do you have trouble getting transportation to medical appointments?: No Do you have trouble paying your heating and electricity bill?: No Do you have trouble taking care of your child, family member or friend?: No Do you have trouble with day-to-day activities such as bathing, preparing meals, shopping, managing finances, etc.?: No Are you currently unemployed and looking for a job?: No Are you interested in more education?: No Please select the resources that you would like help with: None Currently or been in a relationship where the following occur: no concerns reported AUDIT C Alcohol Use Questionnaire (AUDIT-C) 1. How often do you have a drink containing alcohol?: Monthly or less 2. How many drinks containing alcohol do you have on a typical day when you are drinking?: 1 or 2 3. How often do you have six or more drinks on one occasion?: Never Total Score: 1 Score Reviewed/Action Taken: No YUE-7 AMB Questionnaire YUE-7 Date YUE - 7 assessed: 11/20/22 Feeling nervous, anxious, or on edge: 0 = Not at all Not being able to stop or control worryin = Not at all Worrying too much about different things: 0 = Not at all Trouble relaxin = Not at all Being so restless that it is hard to sit still: 0 = Not at all Becoming easily annoyed or irritable: 0 = Not at all Feeling afraid as if something awful might happen: 0 = Not at all Total YUE-7 score (0-4 normal; 5-9 mild; 10-14 moderate; 15-21 severe): 0 Source: Developed by Drs. Shant Hansen, Tea Springer, Devon Chawla and colleagues, with an educational chandler from [employer]. YUE-7 Assessment Billing YUE-7 Assessment Tool: YUE-7 Assessment 06113 Review of Systems Const Denies chills and Denies fever(s) ENT Denies epistaxis and Denies nasal discharge Card Denies chest pain Resp Denies chest congestion, Denies cough and Denies hemoptysis GI Denies diarrhea and Denies nausea Skin/Breast Denies rash Neuro Reports no additional complaints Psych Reports no additional complaints Endo Reports no additional complaints Physical exam (Primary Care) Vital Signs: Last Vital Signs Pulse 74 03/24/23 10:17 BP 122/80 03/24/23 10:17 Pulse Ox 97 03/24/23 10:17 Oxygen Delivery Method Room Air 03/24/23 10:17 BMI result Body Mass Index 46.6 Tobacco/Smoking Status: Tobacco use Status Tobacco use date assessed 03/24/23 03/24/23 10:20 Patient Tobacco Use Status Never used Tobacco 03/24/23 10:20 e-Cigarette/Vaping Use Never Used 03/24/23 10:20 Thrive Assessment: Date of Thrive Assessment Date Thrive assessed 03/24/23 03/24/23 10:20 Currently or been in a relationship where the following occur: no concerns reported Const General: cooperative, comfortable and no acute distress Orientation/consciousness: patient oriented x3 HENMT Head: Yes normocephalic Eyes General: appearance normal, both eyes and all related structures Neck Neck: Yes supple Resp Effort & Inspection: normal respiratory effort, no cough and no stridor Cardio Rhythm: regular rhythm Heart sounds: S1 normal heart sound present and S2 normal heart sound present Skin General skin exam: turgor normal Neuro General: patient oriented x3, tone normal and moves all extremities Extrem Right lower extremity: no edema Left lower extremity: no edema Assessment and Plan Assessment & Plan (1) Hypertension, essential: Code(s): I10 - Essential (primary) hypertension (2) Lipid disorder: Code(s): E78.9 - Disorder of lipoprotein metabolism, unspecified (3) Vitamin D deficiency: Code(s): E55.9 - Vitamin D deficiency, unspecified (4) Morbid obesity with BMI of 45.0-49.9, adult: Code(s): E66.01 - Morbid (severe) obesity due to excess calories; Z68.42 - Body mass index [BMI] 45.0-49.9, adult (5) Iron deficiency anemia: Code(s): D50.9 - Iron deficiency anemia, unspecified Qualifiers: Iron deficiency anemia type: unspecified iron deficiency Qualified Code(s): D50.9 - Iron deficiency anemia, unspecified (6) B12 deficiency: Code(s): E53.8 - Deficiency of other specified B group vitamins Plan 42-year-old female came in today for her follow-up appointment History of iron-deficiency anemia, still taking iron supplement once a week Last time she had labs in November her H&H was stable. We will repeat labs again before her visit in July and I have ordered ferritin level as well. Meanwhile continue vitamin-B 12 and vitamin-D supplement Lipid disorder: Continue atorvastatin 20 mg no side effects.? Blood pressure is stable patient is on hydrochlorothiazide 25 mg daily Dyspepsia stable with omeprazole 20 mg.? [id number] Morbid obesity, patient is trying to lose weight Currently patient is taking all her medication as prescribed and she is stable. Orders: Orders Complete Blood Count Auto Diff 3 Months D50.9 - Iron deficiency anemia, unspecified, E53.8 - Deficiency of other specified B group vitamins, E55.9 - Vitamin D deficiency, unspecified, E66.01 - Morbid (severe) obesity due to excess calories, E78.9 - Disorder of lipoprotein metabolism, unspecified, I10 - Essential (primary) hypertension, Z68.42 - Body mass index [BMI] 45.0-49.9, adult Comprehensive [place]. Panel Fast 3 Months D50.9 - Iron deficiency anemia, unspecified, E53.8 - Deficiency of other specified B group vitamins, E55.9 - Vitamin D deficiency, unspecified, E66.01 - Morbid (severe) obesity due to excess calories, E78.9 - Disorder of lipoprotein metabolism, unspecified, I10 - Essential (primary) hypertension, Z68.42 - Body mass index [BMI] 45.0-49.9, adult Ferritin 3 Months D50.9 - Iron deficiency anemia, unspecified, E53.8 - Deficiency of other specified B group vitamins, E55.9 - Vitamin D deficiency, unspecified, E66.01 - Morbid (severe) obesity due to excess calories, E78.9 - Disorder of lipoprotein metabolism, unspecified, I10 - Essential (primary) hypertension, Z68.42 - Body mass index [BMI] 45.0-49.9, adult Liver Panel 3 Months D50.9 - Iron deficiency anemia, unspecified, E53.8 - Deficiency of other specified B group vitamins, E55.9 - Vitamin D deficiency, unspecified, E66.01 - Morbid (severe) obesity due to excess calories, E78.9 - Disorder of lipoprotein metabolism, unspecified, I10 - Essential (primary) hypertension, Z68.42 - Body mass index [BMI] 45.0-49.9, adult Vitamin B12 3 Months D50.9 - Iron deficiency anemia, unspecified, E53.8 - Deficiency of other specified B group vitamins, E55.9 - Vitamin D deficiency, unspecified, E66.01 - Morbid (severe) obesity due to excess calories, E78.9 - Disorder of lipoprotein metabolism, unspecified, I10 - Essential (primary) hypertension, Z68.42 - Body mass index [BMI] 45.0-49.9, adult Vitamin D 25-OH (D2 and D3) 3 Months D50.9 - Iron deficiency anemia, unspecified, E53.8 - Deficiency of other specified B group vitamins, E55.9 - Vitamin D deficiency, unspecified, E66.01 - Morbid (severe) obesity due to excess calories, E78.9 - Disorder of lipoprotein metabolism, unspecified, I10 - Essential (primary) hypertension, Z68.42 - Body mass index [BMI] 45.0-49.9, adult Coding Level of Care Code Est Pt Level 4 (21552) Diagnoses Hypertension, essential I10 Lipid disorder E78.9 Vitamin D deficiency E55.9 Morbid obesity with BMI of 45.0-49.9, adult E66.01; Z68.42 Iron deficiency anemia, unspecified iron deficiency anemia type D50.9 Iron deficiency anemia type: unspecified iron deficiency B12 deficiency E53.8 Additional Codes YUE-7 Assessment Billing - YUE-7 Assessment Tool: YUE-7 Assessment 23667 ([id number])
[2023-03-24 10:17] VITALS: BP 122/80; PULSE 74; O2SAT 97; BMI 46.6
== END 2023-03-24 10:31 | disposition home or self-care (01) ==
PROVIDERS: PCP Internal Medicine; Visit Provider Internal Medicine
DX: I10 Essential (primary) hypertension (principal); E66.01 Morbid (severe) obesity due to excess calories; Z68.42 Body mass index [BMI] 45.0-49.9, adult; E78.9 Disorder of lipoprotein metabolism, unspecified; E55.9 Vitamin D deficiency, unspecified; D50.9 Iron deficiency anemia, unspecified; E53.8 Deficiency of other specified B group vitamins
CPT/HCPCS: 99214

== ENCOUNTER 2023-07-21 08:27 | Outpatient (REF) | payer OTHER, SELFPAY ==
[2023-07-21 08:49] LABS: Ferritin 16 ng/mL (10-250)
[2023-07-21 08:50] LABS: MANUAL DIFF FLAG NO
[2023-07-21 09:14] LABS: Basophils Percent Auto 0.3 % (0-2); Eosinophils Absolute Auto 0.1 X10*3/uL (0.0-0.4); Eosinophils Percent Auto 1.3 % (0-4); Hematocrit 34.5 % (37.0-47.0); Hemoglobin 11.9 g/dl (12.0-16.0); Imm Gran Abs Auto 0.02 X10*3/uL (0.00-0.03); Imm Gran Pct Auto 0.3 % (0.0-0.4); Lymphocytes Absolute Auto 2.1 X10*3/uL (1.2-4.9); Lymphocytes Percent Auto 29.4 % (20-40); Mean Corpuscular HGB Conc 34.5 g/dl (31.0-35.0); Mean Corpuscular Hemoglobin 29.4 pg (27.0-33.0); Mean Corpuscular Volume 85.2 fL (80.0-98.0); Mean Platelet Volume 9.8 fL (9.4-12.3); Monocytes Absolute Auto 0.7 X10*3/uL (0.1-1.2); Monocytes Percent Auto 9.2 % (2-11); Neutrophils Absolute Auto 4.2 x10*3/uL (2.0-8.3); Neutrophils Percent Auto 59.5 % (45-73); Platelet Count 268 X10*3/uL (160-400); Red Blood Count 4.05 X10*6/uL (4.20-5.50); Red Cell Distribution Width 13.6 % (11.0-16.0)
[2023-07-21 09:55] LABS: Alanine Aminotransferase 19 U/L (0-31); Albumin Level 4.1 g/dL (3.5-5.0); Alkaline Phosphatase 103 U/L (39-117); Anion Gap 16 (12-20); Aspartate Amino Transferase 16 U/L (5-31); Bilirubin Direct 0.1 mg/dL (0.0-0.5); Bilirubin Total 0.4 mg/dL (0.0-1.0); Blood Urea Nitrogen 17 mg/dL (9-16); Calcium 9.6 mg/dL (8.4-10.2); Carbon Dioxide 24 mmol/L (22-29); Chloride 104 mmol/L (96-108); Estimated Glomerular Filt Rate > 60; Glucose Fasting 104 mg/dL (60-99); Potassium 3.8 mmol/L (3.3-5.1); Sodium 140 mmol/L (135-145); Total Protein 7.6 g/dL (6.5-8.0)
[2023-07-21 10:26] LABS: Vitamin B12 418 pg/mL (200-900)
[2023-07-25 15:28] LABS: Vitamin D 25-OH, D2 <4 ng/mL; Vitamin D 25-OH, D3 29 ng/mL; Vitamin D 25-OH, Total 29 ng/mL (30-100)
== END 2023-07-21 08:28 | disposition home or self-care (01) ==
LOC: HO.LAB 08:27
PROVIDERS: Visit Provider Internal Medicine
DX: I10 Essential (primary) hypertension (principal); E78.9 Disorder of lipoprotein metabolism, unspecified; E55.9 Vitamin D deficiency, unspecified; E66.01 Morbid (severe) obesity due to excess calories; Z68.42 Body mass index [BMI] 45.0-49.9, adult; D50.9 Iron deficiency anemia, unspecified; E53.8 Deficiency of other specified B group vitamins
CPT/HCPCS: 36415; 80053; 80076; 82248; 82306; 82607; 82728; 85025

== ENCOUNTER 2023-07-21 11:45 | Outpatient (AMB) | payer OTHER, SELFPAY ==
--- NOTE | 2023-07-21 11:47 | MHC.PC.OV ---
Vital Signs 07/21/23 11:48 Height 5 ft 2 in Weight 261 lb BMI 47.7 BP 122/80 Blood Pressure Location Rt brachial Position Sitting Pulse 76 Pulse Source Pulse Oximeter Pulse Oximetry (%) 98 Oxygen Delivery Method Room Air Intake Visit Reasons: 8 month follow up Allergies No Known Allergies Allergy (Unknown, Verified 07/21/23 11:49) U Medication List - Last Reconciled 07/21/23 by Madina Esparza MD ascorbic acid (vitamin C) 500 mg PO DAILY atorvastatin 20 mg PO BEDTIME 90 days cholecalciferol (vitamin D3) 125 mcg PO BEDTIME cyanocobalamin (vitamin B-12) 1,000 mcg PO TUSA docusate sodium 100 mg PO BID PRN ferrous sulfate 324 mg PO TUSA hydrochlorothiazide 25 mg PO DAILY 90 days norethindrone (contraceptive) (Rhiannon) 0.35 mg PO DAILY omeprazole magnesium (Prilosec OTC) 20 mg PO DAILY Tobacco use date assessed: 03/24/23 Dental Screening Dental Screen Date: 03/24/23 HPI 8 month follow up HPI Details Patient is a 43-year-old female came in today for her regular follow-up appointment Blood pressure is stable, patient is taking hydrochlorothiazide 25 mg, tolerating medication GERD is stable with omeprazole 20 mg and diet-controlled Patient is morbidly obese need to lose weight Had labs done recently Her sugar came back at 104, I have added hemoglobin A1c for next set of lab Continue iron supplement and B12 Hemoglobin is slightly low but stable. Continue atorvastatin 20 mg for lipid control Patient has appointment in December for physical exam [facility] Medical History Abnormal LFTs Gallstone Morbid obesity with BMI of 45.0-49.9, adult High cholesterol Hypertension Surgical History No pertinent past surgical history Family History Father Hyperlipidemia Diabetes mellitus COPD (chronic obstructive pulmonary disease) Mother Hyperlipidemia HTN (hypertension) Skin cancer Maternal Grandfather No problems noted. Maternal Grandmother No problems noted. Paternal Grandmother CHF (congestive heart failure) Dementia Paternal Grandfather No problems noted. Sister No problems noted. Son No problems noted. Son No problems noted. Social History Housing: House Alcohol intake: never Patient Tobacco Use Status: Never used Tobacco e-Cigarette/Vaping Use: Never Used Second Hand Smoke Exposure: No service: No Current occupational status: employed Current occupational exposures/hazards: No Sexual orientation: Straight/Heterosexual Gender identity: Female Cognitive needs: No Hearing needs: No Vision needs: Yes Questionnaire Thrive Questionnaire Date Thrive assessed: 03/24/23 YUE-7 AMB Questionnaire YUE-7 Date YUE - 7 assessed: 11/20/22 Source: Developed by Drs. Shant Hansen, Tea Springer, Devon Chawla and colleagues, with an educational chandler from [employer]. Review of Systems Const Denies chills and Denies fever(s) ENT Denies epistaxis and Denies nasal discharge Card Denies chest pain Resp Denies chest congestion, Denies cough and Denies hemoptysis GI Denies diarrhea and Denies nausea Skin/Breast Denies rash Neuro Reports no additional complaints Psych Reports no additional complaints Endo Reports no additional complaints Physical exam (Primary Care) Vital Signs: Last Vital Signs Pulse 76 07/21/23 11:48 BP 122/80 07/21/23 11:48 Pulse Ox 98 07/21/23 11:48 Oxygen Delivery Method Room Air 07/21/23 11:48 BMI result Body Mass Index 47.7 Tobacco/Smoking Status: Tobacco use Status Tobacco use date assessed 03/24/23 07/21/23 11:47 Patient Tobacco Use Status Never used Tobacco 07/21/23 11:47 e-Cigarette/Vaping Use Never Used 07/21/23 11:47 Thrive Assessment: Date of Thrive Assessment Date Thrive assessed 03/24/23 07/21/23 11:47 Const General: cooperative, comfortable and no acute distress Orientation/consciousness: patient oriented x3 HENMT Head: Yes normocephalic Eyes General: appearance normal, both eyes and all related structures Neck Neck: Yes supple Resp Effort & Inspection: normal respiratory effort, no cough and no stridor Cardio Rhythm: regular rhythm Heart sounds: S1 normal heart sound present and S2 normal heart sound present Skin General skin exam: turgor normal Neuro General: patient oriented x3, tone normal and moves all extremities Extrem Right lower extremity: no edema Left lower extremity: no edema Assessment and Plan Assessment & Plan (1) Hypertension, essential: Code(s): I10 - Essential (primary) hypertension (2) Lipid disorder: Code(s): E78.9 - Disorder of lipoprotein metabolism, unspecified (3) Impaired fasting blood sugar: Code(s): R73.01 - Impaired fasting glucose (4) Morbid obesity with BMI of 45.0-49.9, adult: Code(s): E66.01 - Morbid (severe) obesity due to excess calories; Z68.42 - Body mass index [BMI] 45.0-49.9, adult (5) Low hemoglobin: Code(s): D64.9 - Anemia, unspecified Plan Patient is a 43-year-old female came in today for her regular follow-up appointment Blood pressure is stable, patient is taking hydrochlorothiazide 25 mg, tolerating medication GERD is stable with omeprazole 20 mg and diet-controlled Patient is morbidly obese need to lose weight Had labs done recently Her sugar came back at 104, I have added hemoglobin A1c for next set of lab Continue iron supplement and B12 Hemoglobin is slightly low but stable. Continue atorvastatin 20 mg for lipid control Patient has appointment in December for physical exam Orders: Orders Hemoglobin A1c 5 Months D64.9 - Anemia, unspecified, E66.01 - Morbid (severe) obesity due to excess calories, E78.9 - Disorder of lipoprotein metabolism, unspecified, I10 - Essential (primary) hypertension, R73.01 - Impaired fasting glucose, Z68.42 - Body mass index [BMI] 45.0-49.9, adult Complete Blood Count Auto Diff 5 Months D64.9 - Anemia, unspecified, E66.01 - Morbid (severe) obesity due to excess calories, E78.9 - Disorder of lipoprotein metabolism, unspecified, I10 - Essential (primary) hypertension, R73.01 - Impaired fasting glucose, Z68.42 - Body mass index [BMI] 45.0-49.9, adult Lipid Panel 5 Months D64.9 - Anemia, unspecified, E66.01 - Morbid (severe) obesity due to excess calories, E78.9 - Disorder of lipoprotein metabolism, unspecified, I10 - Essential (primary) hypertension, R73.01 - Impaired fasting glucose, Z68.42 - Body mass index [BMI] 45.0-49.9, adult Comprehensive [place]. Panel Fast 5 Months D64.9 - Anemia, unspecified, E66.01 - Morbid (severe) obesity due to excess calories, E78.9 - Disorder of lipoprotein metabolism, unspecified, I10 - Essential (primary) hypertension, R73.01 - Impaired fasting glucose, Z68.42 - Body mass index [BMI] 45.0-49.9, adult Coding Level of Care Code Est Pt Level 4 (77246) Diagnoses Hypertension, essential I10 Lipid disorder E78.9 Impaired fasting blood sugar R73.01 Morbid obesity with BMI of 45.0-49.9, adult E66.01; Z68.42 Low hemoglobin D64.9
[2023-07-21 11:48] VITALS: BP 122/80; PULSE 76; O2SAT 98; BMI 47.7
== END 2023-07-21 12:06 | disposition home or self-care (01) ==
PROVIDERS: PCP Internal Medicine; Visit Provider Internal Medicine
DX: I10 Essential (primary) hypertension (principal); E66.01 Morbid (severe) obesity due to excess calories; Z68.42 Body mass index [BMI] 45.0-49.9, adult; E78.9 Disorder of lipoprotein metabolism, unspecified; R73.01 Impaired fasting glucose; D64.9 Anemia, unspecified
CPT/HCPCS: 99214

== ENCOUNTER 2023-08-03 11:13 | Outpatient (REF) | payer OTHER, SELFPAY ==
[2023-08-03 14:12] LABS: CT PCR NOT DETECTED (Not Detect.); NG PCR NOT DETECTED (Not Detect.)
[2023-08-03 14:20] LABS: Bacterial Vaginosis PCR NEGATIVE (Negative); Candida Group PCR NOT DETECTED (Not Detect); Candida glab krusei PCR NOT DETECTED (Not Detect); Trichomonas vaginalis PCR NOT DETECTED (Not Detect)
[2023-08-10 12:49] LABS: HPV mRNA E6/E7 rflx Not Detected (Not Detected)
== END 2023-08-03 11:14 | disposition home or self-care (01) ==
LOC: HO.LNP 11:13
PROVIDERS: PCP Internal Medicine; Visit Provider Advanced Practice Midwife
DX: Z01.419 Encounter for gynecological examination (general) (routine) without abnormal findings (principal); N93.9 Abnormal uterine and vaginal bleeding, unspecified; Z20.2 Contact with and (suspected) exposure to infections with a predominantly sexual mode of transmission
CPT/HCPCS: 0352U; 0353U; 81025; 87480; 87510; 87624; 87660; 88142

== ENCOUNTER 2023-08-03 11:13 | Outpatient (AMB) | payer OTHER, SELFPAY ==
[2023-08-03 11:20] VITALS: BP 132/74; BMI 47.5
--- NOTE | 2023-08-03 11:20 | A.OFFVIS_ITS ---
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 Doing well with no concerns. She tries to eat healthy and stays active with exercise w/walking. Regular monthly menses x 6-7, heavier, occasional lasting up to 10d, 14d in February. Taking Rhiannon, no missed pills, sometimes takes late up to 2 hours. Currently is rarely sexually active. She denies vaginal itching and irritation. STI screening offered; she accepts. Denies family history of breast, ovarian or colon cancer. Last pap smear 2020, negative. Mammogram: 2022. [facility] Medical History Abnormal LFTs Gallstone Morbid obesity with BMI of 45.0-49.9, adult High cholesterol Hypertension Surgical History No pertinent past surgical history Family History Father Hyperlipidemia Diabetes mellitus COPD (chronic obstructive pulmonary disease) Mother Hyperlipidemia HTN (hypertension) Skin cancer Maternal Grandfather No problems noted. Maternal Grandmother No problems noted. Paternal Grandmother CHF (congestive heart failure) Dementia Paternal Grandfather No problems noted. Sister No problems noted. Son No problems noted. Son No problems noted. Social History Housing: House Alcohol intake: never Patient Tobacco Use Status: Never used Tobacco e-Cigarette/Vaping Use: Never Used Second Hand Smoke Exposure: No service: No Current occupational status: employed Current occupational exposures/hazards: No Sexual orientation: Straight/Heterosexual Gender identity: Female Cognitive needs: No Hearing needs: No Vision needs: Yes Female Reproductive History Menstrual Age of Menarche: 12 Duration of menses: >10 days Date of last menstrual period: 07/23/23 control method: pills Total pregnancies: 2 Full term: 2 Number of Living Children: 2 Date of last pap smear: 10/30/19 (negative) Date of Mammogram: 11/24/22 Review of Systems Const All systems reviewed & are unremarkable except as noted in HPI and below Reports as per HPI Eyes Reports no additional complaints ENT Reports no additional complaints Card Reports no additional complaints Resp Reports no additional complaints GI Reports as per HPI and Reports no additional complaints Reports as per HPI Musc Reports no additional complaints Skin/Breast Reports as per HPI Neuro Reports no additional complaints Psych Reports no additional complaints Endo Reports no additional complaints Rodriguez/Lymph Reports no additional complaints Aller/Immun Reports no additional complaints Physical Exam Vital Signs: Last Vital Signs BP 132/74 08/03/23 11:20 BMI result Body Mass Index 47.5 Const General: cooperative, healthy appearing, no acute distress, well developed and alert Orientation/consciousness: patient oriented x3 HEENT Head: Yes normal to inspection Eyes General: appearance normal, both eyes and all related structures Neck Neck: Yes normal visual inspection Thyroid: Thyroid normal Chest Chest palpation & inspection: normal inspection of the chest and other (no puckering, dimpling, peau de orange, retraction, discharge, masses) Breast/axilla inspection: normal inspection of the breasts Breast/axilla palpation: normal palpation of the breasts Resp Effort & Inspection: normal respiratory effort GI Inspection: Yes normal to inspection and Yes obesity Palpation (GI): Soft to palpation Rectal Exam - Female: deferred General: Yes bladder normal to palpation External Female Exam: normal external appearance and normal appearance of the urethra Speculum Exam - Vagina: normal appearance of the vagina, normal palpation and normal vaginal discharge Speculum Exam - Cervix: normal appearance of the cervix, normal palpation and Other cervical findings present (Bled slightly with Pap) Bimanual exam- vagina & uterus: normal bimanual exam, normal palpation, uterine size normal, bladder normal to palpation, normal palpation and non-tender Bimanual Exam- Adnexa, other: no masses Skin General skin exam: no rashes or lesions noted Rashes: no rashes Neuro General: patient oriented x3 Cognition (Neuro): normal cognition Extrem General: Yes normal to inspection Psych Attitude: cooperative Thought process: Normal thought process present Assessment & Plan Assessment & Plan (1) Encounter for well woman exam with routine gynecological exam: Code(s): Z01.419 - Encounter for gynecological examination (general) (routine) without abnormal findings Category: Medical (2) Abnormal uterine bleeding (AUB): Code(s): N93.9 - Abnormal uterine and vaginal bleeding, unspecified Category: Medical Plan Discussed: Current recommendations for pap smears per ASCCP guidelines. Breast awareness and periodic breast exams. Maintain a healthy lifestyle including a well balanced diet and routine exercise. Consider changing to the Mirena IUD, limitations of progesterone only pill. Workup for bleeding to include ultrasound TSH, cervical cultures, Pap, EMB, advised to take 2 Tylenol or 3 ibuprofen per manufacture's recommendation with food 1 hour before the biopsy. Mirena booklet given today. Mammogram yearly. Colonoscopy >45, or at risk sooner. Patient verbalizes understanding and agrees to the plan of care. She was given opportunity to ask questions and all questions were answered to the best of my ability. RTO in one year for annual manager of allied health services examination. This note is constructed using voice recognition software. While every effort has been made to ensure accuracy, staffing program manager errors may have been included. Orders: Orders Thyroid Stimulating Hormone Today N93.9 - Abnormal uterine and vaginal bleeding, unspecified Pap Smear Today N93.9 - Abnormal uterine and vaginal bleeding, unspecified US pelvic and transvaginal Today N93.9 - Abnormal uterine and vaginal bleeding, unspecified Bacterial Vaginosis Panel Today N93.9 - Abnormal uterine and vaginal bleeding, unspecified CT NG by PCR Today N93.9 - Abnormal uterine and vaginal bleeding, unspecified AMB HCG Urine Test Today N93.9 - Abnormal uterine and vaginal bleeding, unspecified Coding Level of Care Code Est Pt Prev Care 40-64y(55437) Diagnoses Encounter for well woman exam with routine gynecological exam Z01.419 Abnormal uterine bleeding (AUB) N93.9
== END 2023-08-03 12:45 | disposition home or self-care (01) ==
PROVIDERS: PCP Internal Medicine; Visit Provider Advanced Practice Midwife
DX: Z01.419 Encounter for gynecological examination (general) (routine) without abnormal findings (principal); N93.9 Abnormal uterine and vaginal bleeding, unspecified
CPT/HCPCS: 99396

== ENCOUNTER 2023-08-19 11:23 | Outpatient (REF) | payer OTHER, SELFPAY ==
--- NOTE | ~2023-08-19 | US_ITS ---
EXAMINATION: US PELVIS CLINICAL INFORMATION: Abnormal uterine and vaginal bleeding, unspecified COMPARISON: Pelvic ultrasound 06/13/2020, CT scan abdomen and pelvis 06/12/2021 TECHNIQUE: Ultrasound of the pelvis is performed using both transabdominal and transvaginal transducers along with Doppler. Transvaginal imaging is performed due to inadequate visualization transabdominally. FINDINGS: Uterus: The uterus is anteverted and measures 11.3 x 7.3 x 7.4. There are 2 fibroids not previously appreciated: Anterior fibroid on the left measures 1.4 x 1.4 x 1.2 cm. Posterior fibroid on the right measures 2.2 x 2.3 x 2.1 cm. The endometrium is markedly thickened and heterogeneous measuring 2.6 cm. Upper limits of normal is 1.6 cm. Adnexa: Both ovaries are visualized. There is normal color flow to the adnexa. There is no ovarian torsion. There is a small amount of free fluid within the cul-de-sac. The ovaries are normal in appearance. Right ovary measures 2.4 x 1.6 x 1.4 cm. Volume 2.8 mL. Left ovary measures 2.6 x 1.9 x 1.7 cm. Volume 4.4 mL. US/US pelvic and transvaginal IMPRESSION: 1. 2 uterine fibroids. 2. Markedly thickened and heterogeneous endometrium. 3. Normal ovaries.
== END 2023-08-19 11:24 | disposition home or self-care (01) ==
LOC: HO.US 11:23
PROVIDERS: PCP Internal Medicine; Visit Provider Advanced Practice Midwife
DX: N93.9 Abnormal uterine and vaginal bleeding, unspecified (principal)
CPT/HCPCS: 76830; 76856

== ENCOUNTER 2023-09-17 10:49 | Outpatient (REF) | payer OTHER, SELFPAY ==
[2023-09-17 15:12] LABS: Thyroid Stimulating Hormone 3.31 uIU/mL (0.32-4.0)
== END 2023-09-17 10:50 | disposition home or self-care (01) ==
LOC: HO.LAB 10:49
PROVIDERS: PCP Internal Medicine; Visit Provider Advanced Practice Midwife
DX: N93.9 Abnormal uterine and vaginal bleeding, unspecified (principal)
CPT/HCPCS: 36415; 84443

== ENCOUNTER 2023-10-29 11:17 | Outpatient (REF) | payer OTHER, SELFPAY | END 2023-10-29 11:18 | disposition home or self-care (01) | LOC: HO.LAB 11:17 | PROVIDERS: PCP Internal Medicine; Visit Provider Advanced Practice Midwife | DX: N93.9 Abnormal uterine and vaginal bleeding, unspecified (principal); R93.89 Abnormal findings on diagnostic imaging of other specified body structures; N92.1 Excessive and frequent menstruation with irregular cycle | CPT/HCPCS: 58100; 81025; 88305 ==

== ENCOUNTER 2023-10-29 11:17 | Outpatient (AMB) | payer OTHER, SELFPAY ==
--- NOTE | 2023-10-29 11:20 | A.OFFVIS_ITS ---
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 She has a history of AUB currently taking Rosa has episodes of bleeding with [place], occasionally late on her pill. TSH was 3.31, H&H was 11.9-34.5, Pap negative 07/2023. Ultrasound- endometrium 2.6 cm, fibroids. Prior history of endometrial biopsy in 2020 was negative. She is considering changing to the Mirena IUD in the future. [facility] Medical History Abnormal LFTs Gallstone Morbid obesity with BMI of 45.0-49.9, adult High cholesterol Hypertension Surgical History No pertinent past surgical history Family History Father Hyperlipidemia Diabetes mellitus COPD (chronic obstructive pulmonary disease) Mother Hyperlipidemia HTN (hypertension) Skin cancer Maternal Grandfather No problems noted. Maternal Grandmother No problems noted. Paternal Grandmother CHF (congestive heart failure) Dementia Paternal Grandfather No problems noted. Sister No problems noted. Son No problems noted. Son No problems noted. Social History Housing: House Alcohol intake: never Patient Tobacco Use Status: Never used Tobacco e-Cigarette/Vaping Use: Never Used Second Hand Smoke Exposure: No service: No Current occupational status: employed Current occupational exposures/hazards: No Sexual orientation: Straight/Heterosexual Gender identity: Female Cognitive needs: No Hearing needs: No Vision needs: Yes Female Reproductive History Menstrual Age of Menarche: 12 Date of last menstrual period: 10/18/23 Review of Systems Const All systems reviewed & are unremarkable except as noted in HPI and below Physical Exam Vital Signs: Last Vital Signs BP 116/80 10/29/23 11:21 BMI result Body Mass Index 47.5 Const General: cooperative, healthy appearing and no acute distress Orientation/consciousness: patient oriented x3 GI Inspection: Yes normal to inspection Palpation (GI): Soft to palpation and Other GI palpation findings present (Nontender) Rectal Exam - Female: visual inspection normal General: Yes bladder normal to palpation External Female Exam: normal appearance of the urethra Speculum Exam - Vagina: normal appearance of the vagina, normal palpation and normal vaginal discharge Speculum Exam - Cervix: normal appearance of the cervix and normal palpation Bimanual exam- vagina & uterus: normal bimanual exam, normal palpation, uterine size normal, bladder normal to palpation, normal palpation, uterine shape normal and non-tender Bimanual Exam- Adnexa, other: normal adnexae Neuro General: patient oriented x3 Office Procedures Endometrial Biopsy Details: The patient is here today for an endometrial biopsy due to AUB to rule out any pathology including atypical, hyperplasia or cancer cells of the uterus. She was counseled regarding anticipatory guidance for the procedure including the risks for pain, infection, bleeding, perforation, potential injury to the tissues may include the cervix, uterus, tubes, bladder and bowels. These injuries may include further treatment and evaluation including surgery, blood transfusions, antibiotics, hospitalizations and anesthesia. Permanent injury and scarring can occur. She was consented for the procedure, and the consent forms were signed. She is agreeable to have the procedure today. All questions were answered. Endometrial Biopsy Procedure: The patient was placed in the dorsal lithotomy position and a sterile speculum inserted. Using aseptic technique for the procedure. The cervix was cleansed with Betadine x 3 swabs. A single toothed tenaculum was placed on the cervix for stabilization and the uterus was sounded to 9 cm with a 4mm pipelle, and tissue sample obtained. Minimal bleeding was observed. The tissue sample was placed in formalin in a patient labeled container by staff assisting and sent to the pathology department for processing and interpretation. The patient tolerate the procedure well and was in good condition when leaving the department. Endometrial Biopsy Post Procedure Care: Nothing in the vagina including: tampons, douching or intimacy until all the bleeding has subsided. There may be some post procedure bleeding for several days, this bleeding is usually light and may turn to a light brown or pink color. Mild cramps may occurs. Nothing in the vaginal including: tampons, douching, or intimacy until all the bleeding has subsided. You may take an over the counter mild analgesic such as Tylenol or Advil (if no allergies) per the manufactures recommendation on dosing, frequency, and follow the directions completely. Call the office if any: fever (over 100.4), flu like symptoms, abdominal pain (worse than cramping), foul smelling, infected appearing vaginal discharge, or heavy bleeding. If indicated: Use condoms to prevent and STI's, and only after the bleeding has stopped completely. Return to the office in 2 weeks for results and plan of care. This note is constructed using voice recognition software. While every effort has been made to ensure accuracy, director of knowledge management errors may have been included. [id number] Biopsy Results AMB Test Urine AMB Test Urine Negative Last Edit by TIA Overton on 10/29/23 11:31 Results Reviewed Results Reviewed: Laboratory Last Values Tst Clinic Negative 10/29/23 11:30 Assessment & Plan Assessment & Plan (1) Abnormal uterine bleeding (AUB): Code(s): N93.9 - Abnormal uterine and vaginal bleeding, unspecified Category: Medical (2) Thickened endometrium: Code(s): R93.89 - Abnormal findings on diagnostic imaging of other specified body structures (3) Breakthrough bleeding on control pills: Code(s): N92.1 - Excessive and frequent menstruation with irregular cycle Plan See procedure note. Orders: Orders Surgical Today N93.9 - Abnormal uterine and vaginal bleeding, unspecified AMB HCG Urine Test Today N93.9 - Abnormal uterine and vaginal bleeding, unspecified Coding Level of Care Code Procedure Only Diagnoses Abnormal uterine bleeding (AUB) N93.9 Thickened endometrium R93.89 Breakthrough bleeding on control pills N92.1 CPT Codes Endometrial Biopsy - CPT: 50414-Alblygqvldn Biopsy ([id number])
[2023-10-29 11:21] VITALS: BP 116/80; BMI 47.5
== END 2023-10-29 12:08 | disposition home or self-care (01) ==
PROVIDERS: PCP Internal Medicine; Visit Provider Advanced Practice Midwife
DX: N93.9 Abnormal uterine and vaginal bleeding, unspecified (principal); R93.89 Abnormal findings on diagnostic imaging of other specified body structures; N92.1 Excessive and frequent menstruation with irregular cycle
CPT/HCPCS: 58100

== ENCOUNTER 2023-11-29 12:35 | Outpatient (REF) | payer OTHER, SELFPAY ==
--- NOTE | ~2023-11-29 | MM_ITS ---
EXAMINATION: MM SCREENING DIGITAL BREAST TOMOSYNTHESIS, BILATERAL CLINICAL INFORMATION: Screening. Asymptomatic. COMPARISON: Mammography: Comparison is made with available priors TECHNIQUE: Digital breast mammography with tomosynthesis is performed in both the craniocaudal and mediolateral oblique views along with computer-aided detection (CAD). FINDINGS: The breasts are almost entirely fatty (ACR BI-RADS breast composition Category a). There are no significant masses, abnormal calcifications, or other abnormalities. MM/MM tomosynthesis screening BI IMPRESSION: No mammographic evidence of malignancy. ASSESSMENT: BI-RADS BI-RADS 1 - Negative RECOMMENDATION: Routine annual mammography screening. 1 year F/U This examination should not preclude the clinical evaluation of a suspicious palpable abnormality. This patient's information was entered into a reminder system with a target due date for their next mammogram. Electronically signed by: Monica Beach DO 12/13/2023 05:53 PM EDT
== END 2023-11-29 12:36 | disposition home or self-care (01) ==
LOC: HO.MAMMO 12:35
PROVIDERS: PCP Internal Medicine; Visit Provider Internal Medicine
DX: Z12.31 Encounter for screening mammogram for malignant neoplasm of breast (principal)
CPT/HCPCS: 77063; 77067

== ENCOUNTER → 2023-11-29 12:45 | Outpatient (BNV) | payer OTHER, SELFPAY | PROVIDERS: PCP Internal Medicine; Visit Provider Internal Medicine | DX: Z12.31 Encounter for screening mammogram for malignant neoplasm of breast (principal) | CPT/HCPCS: 77063; 77067 ==

== ENCOUNTER 2023-12-08 15:40 | Outpatient (AMB) | payer OTHER, SELFPAY ==
--- NOTE | 2023-12-08 15:41 | A.OFFVIS_ITS ---
Vital Signs 12/08/23 15:47 Height 5 ft 2 in BP 130/68 Blood Pressure Location Rt brachial Position Sitting Intake Visit Reasons: Mirena Insertion/EMB result/30 mins Allergies No Known Allergies Allergy (Unknown, Verified 10/29/23 11:21) U HPI Comments Details: Patient is here today for a Mirena insertion and EMB results. Currently taking [place] has not missed any dose and denies any unprotected intimacy. UPT is negative. History of fibroids. [facility] Medical History (Updated 12/08/23 @ 16:22 by Marielos Whitt CNM) Presence of Mirena IUD Abnormal LFTs Gallstone Morbid obesity with BMI of 45.0-49.9, adult High cholesterol Hypertension Surgical History No pertinent past surgical history Family History Father Hyperlipidemia Diabetes mellitus COPD (chronic obstructive pulmonary disease) Mother Hyperlipidemia HTN (hypertension) Skin cancer Maternal Grandfather No problems noted. Maternal Grandmother No problems noted. Paternal Grandmother CHF (congestive heart failure) Dementia Paternal Grandfather No problems noted. Sister No problems noted. Son No problems noted. Son No problems noted. Social History Housing: House Alcohol intake: never Patient Tobacco Use Status: Never used Tobacco e-Cigarette/Vaping Use: Never Used Second Hand Smoke Exposure: No service: No Current occupational status: employed Current occupational exposures/hazards: No Sexual orientation: Straight/Heterosexual Gender identity: Female Cognitive needs: No Hearing needs: No Vision needs: Yes Female Reproductive History Menstrual Age of Menarche: 12 Date of last menstrual period: 11/11/23 control method: pills and progestin IUCD (Mirena inserted 12/08/2023 x5 years, AUB) Total pregnancies: 2 Full term: 2 Number of Living Children: 2 History of abnormal pap smear: No History of STI: No Date of Mammogram: 11/29/23 Review of Systems Const All systems reviewed & are unremarkable except as noted in HPI and below Physical Exam Vital Signs: Last Vital Signs BP 130/68 12/08/23 15:47 Const General: cooperative, healthy appearing and no acute distress Orientation/consciousness: patient oriented x3 GI Inspection: Yes normal to inspection Palpation (GI): Soft to palpation and Other GI palpation findings present (Nontender) Rectal Exam - Female: visual inspection normal General: Yes bladder normal to palpation External Female Exam: normal appearance of the urethra Speculum Exam - Vagina: normal appearance of the vagina, normal palpation and normal vaginal discharge Speculum Exam - Cervix: normal appearance of the cervix and normal palpation Bimanual exam- vagina & uterus: normal bimanual exam, normal palpation, uterine size normal, bladder normal to palpation, normal palpation, uterine shape normal and non-tender Bimanual Exam- Adnexa, other: normal adnexae Neuro General: patient oriented x3 Office Procedures IUD Insert/Removal Details 21222-APF Insertion Procedure code (CPT) selection complete Contraception Insert/Removal Details Details: The patient is here today for a Mirena IUD insertion. History of AUB. She was counseled on the side effects including: menstrual cycle changes, pain, infection, bleeding, or expulsion. Risks of injury to the vagina, cervix, uterus, tubes, ovaries, bowel, bladder, and any adjacent tissue, resulting in nerve damage, scarring, and pain. Risks complications for the procedure that may require other test including ultrasounds, Xray, CT or MRI scan, surgery, anesthesia, blood transfusion. A urine test was completed and was negative. She was consented for the IUD insertion and has signed the consent form. All questions were answered. IUD Insertion: The patient was placed in the dorsal lithotomy position and a sterile speculum was inserted. The procedure was completed under aseptic technique. The cervix was cleansed with a Betadine solution x 3 swabs. A single toothed tenaculum was applied to the cervix for stabilization, and the uterus was sounded to 9cm. The device was inserted and released with a gentle motion. Bleeding from the tenaculum sites and the procedure were minimal. The strings were trimmed to 3cm. All of the equipment was removed and the bimanual was normal, no tip was palpable at the cervical os. The patient tolerated the procedure well and left the office in good condition. Post IUD Insertion Care: There may be some post insertion bleeding for several days that is usually light and can turn to a light brown or pink in color. Mild cramping may occur. Nothing in the vagina including: tampons, douching or intimacy for several days. You may take an over the counter mild analgesia like Tylenol or Advil (if no allergies), per the manufacturers recommendations on dosing and frequency. Follow the directions completely. Call the office if any: fever (over 100.4), flu like symptoms, abdominal pain, worsening cramping not resolved with over the counter medications, foul smelling vaginal odor, signs of infected appearing discharge, or heavy bleeding. Use a condom for a back up method if indicated for 7 days. Always use a condom for STI prevention; IUD's are not protective against STD's. Return to the office for IUD recheck following ultrasound. This note is constructed using voice recognition software. While every effort has been made to ensure accuracy, suction operator errors may have been included. 15509 - Insertion Office Meds Mirena 21 mcg/24 hr (up to 8 years) 52 mg intrauterine device Performing Provider: Marielos Whitt CNM Performing Location: [facility] Administered by: Ashley Vidal CMA on 12/08/23 16:25 Dose Route Admin Location Dispensed Lot Number Expiration Date [facility] Manager Provider Relations 1 device intrauterine [facility] 1 device [id number] 01/19/26 21846-604-73 KIMANI,[employer] Results AMB Test Urine AMB Test Urine Negative Last Edit by Olivia Otero LPN on 12/08/23 15:52 Results Reviewed Results Reviewed: Laboratory Last Values Tst Clinic Negative 12/08/23 15:52 Surgical Pathology [id number] Name: Mari Brito Age/Sex: 43/F Attending: Marielos Whitt CNM : 1980 Submitted by: Marielos Whitt CNM Copies to: Madina Esparza MD MR #: [id number] Status: DEP REF Collected: 10/29/23 Location: .LAB Received: 10/29/23 Diagnosis Endometrium, biopsy: Benign proliferative endometrium, and fragments of benign endocervical glandular and squamous epithelium; no atypia or carcinoma. Clinical History AUB Microscopic Description Microscopic sections reviewed. Material Received Endometrial biopsy Gross Description Received in formalin labeled ?EMB? is a 1.5 x 1.5 x 0.45 cm aggregate of multiple tubular cast fragments of congested and hemorrhagic red-maroon tissue and clotted blood, submitted in toto in a cassette labeled A. CEDS Copies To Madina Esparza MD [facility] [address] [facility] [address] [place] [address] Drive [address] [place], [place] [id number] NOTE: Unless otherwise stated, all tissue is formalin-fixed and paraffin- embedded. Some or all of the immunohistochemical tests reported herein may have been developed and their performance characteristics determined by [facility]. They have not been cleared or approved by the U.S. Food and Drug Administration (FDA). However, the FDA has determined that such clearance or approval is not necessary. This laboratory is certified under the Clinical Laboratory Improvement Amendments of 1988 (CLIA) as qualified to perform high complexity clinical laboratory testing. Patient: Mari Brito Age/Sex: 43/F MR#: [id number] Page 1 of 2 Surgical Pathology [id number] Electronically Signed By: Jackie Mora 11/01/23 1013 Patient: Mari Brito Age/Sex: 43/F MR#: [id number] Assessment & Plan Assessment & Plan (1) Fibroid: Code(s): D21.9 - Benign neoplasm of connective and other soft tissue, unspecified Category: Medical (2) Encounter for IUD insertion: Code(s): Z30.430 - Encounter for insertion of intrauterine contraceptive device (3) Abnormal uterine bleeding (AUB): Code(s): N93.9 - Abnormal uterine and vaginal bleeding, unspecified Category: Medical Plan Discussed: Ultrasound reviewed-history of fibroids, EMB results reviewed-proliferative, no atypia or carcinoma. Counseled re: Leiomyoma: common pelvic neoplasm. Differential diagnosis-may include but not limited to- leiomyosarcoma which is a rare uterine sarcoma 3- 7/100,000, difficult to distinguish from fibroids on ultrasound from uterine sarcoma's. Unlikely any single test will have a highly positive predictive value. Hysterectomy is not recommended for sole purpose of excluding malignant neoplasm. Consult for surgical exploration, medical treatment, other treatments, verses expectant management, pros and cons, risks and benefits. Expectant management follow up in 6 months (01/2024), then yearly for stability (07/2024). Report any PMB/AUB. Pelvic pressure, bloating, or pain. Referral to MD if indicated for level of care if indicated. All of her questions and concerns were addressed to the best of my ability and shared decision making. She is agreeable to the plan of care. This note is constructed using voice recognition software. While every effort has been made to ensure accuracy, suction operator errors may have been included. Orders: Orders AMB IUD Insertion/Removal - Practice Supplied Today Z30.430 - Encounter for insertion of intrauterine contraceptive device Medications: New Mirena (levonorgestrel) 1 device intrauterine ONCE 1 ea 0RF NS Z30.430 - Encounter for insertion of intrauterine contraceptive device Coding Level of Care Code Procedure Only Diagnoses Fibroid D21.9 Encounter for IUD insertion Z30.430 Abnormal uterine bleeding (AUB) N93.9 CPT Codes Details - CPT: 96370-OMS Insertion ([id number]) Details - Contraception: 86936 - Insertion ([id number])
[2023-12-08 15:47] VITALS: BP 130/68
== END 2023-12-08 16:27 | disposition home or self-care (01) ==
LOC: HO.HWS 15:41
PROVIDERS: PCP Internal Medicine; Visit Provider Advanced Practice Midwife
DX: D21.9 Benign neoplasm of connective and other soft tissue, unspecified (principal); Z30.430 Encounter for insertion of intrauterine contraceptive device; N93.9 Abnormal uterine and vaginal bleeding, unspecified
CPT/HCPCS: 58300

== ENCOUNTER → 2023-12-08 15:40 | Outpatient (BNVA) | payer OTHER, SELFPAY | PROVIDERS: PCP Internal Medicine; Visit Provider Advanced Practice Midwife | DX: Z30.430 Encounter for insertion of intrauterine contraceptive device (principal); N93.9 Abnormal uterine and vaginal bleeding, unspecified; D21.9 Benign neoplasm of connective and other soft tissue, unspecified | CPT/HCPCS: 58300; J7298 ==

== ENCOUNTER 2023-12-22 07:37 | Outpatient (REF) | payer OTHER, SELFPAY ==
[2023-12-22 08:07] LABS: MANUAL DIFF FLAG NO
[2023-12-22 08:56] LABS: Basophils Percent Auto 0.4 % (0-2); Eosinophils Absolute Auto 0.2 X10*3/uL (0.0-0.4); Eosinophils Percent Auto 2.6 % (0-4); Hematocrit 36.7 % (37.0-47.0); Hemoglobin 12.8 g/dl (12.0-16.0); Imm Gran Abs Auto 0.02 X10*3/uL (0.00-0.03); Imm Gran Pct Auto 0.4 % (0.0-0.4); Lymphocytes Percent Auto 35.3 % (20-40); Mean Corpuscular HGB Conc 34.9 g/dl (31.0-35.0); Mean Corpuscular Hemoglobin 32.2 pg (27.0-33.0); Mean Corpuscular Volume 92.4 fL (80.0-98.0); Mean Platelet Volume 9.7 fL (9.4-12.3); Monocytes Absolute Auto 0.7 X10*3/uL (0.1-1.2); Monocytes Percent Auto 11.8 % (2-11); Neutrophils Absolute Auto 2.8 x10*3/uL (2.0-8.3); Neutrophils Percent Auto 49.5 % (45-73); Platelet Count 228 X10*3/uL (160-400); Red Blood Count 3.97 X10*6/uL (4.20-5.50); Red Cell Distribution Width 13.2 % (11.0-16.0); White Blood Count 5.7 X10*3/uL (4.8-10.8)
[2023-12-22 09:28] LABS: Alanine Aminotransferase 22 U/L (0-31); Albumin Level 3.9 g/dL (3.5-5.0); Alkaline Phosphatase 86 U/L (39-117); Anion Gap 15 (12-20); Aspartate Amino Transferase 17 U/L (5-31); Bilirubin Total 0.5 mg/dL (0.0-1.0); Blood Urea Nitrogen 15 mg/dL (9-16); Calcium 9.4 mg/dL (8.4-10.2); Carbon Dioxide 24 mmol/L (22-29); Chloride 106 mmol/L (96-108); Cholesterol 164 mg/dL (<200); Estimated Glomerular Filt Rate > 60; Glucose Fasting 100 mg/dL (60-99); HDL Cholesterol 35 mg/dL (>40); LDL Cholesterol Calculated 98 mg/dL (<100); Potassium 4.2 mmol/L (3.3-5.1); Sodium 141 mmol/L (135-145); Total Protein 7.2 g/dL (6.5-8.0); Triglycerides 155 mg/dL (<150)
[2023-12-22 09:30] LABS: Estimated Average Glucose 100 mg/dL; Hemoglobin A1C 105.5282 umol/L; Hemoglobin A1c % 5.1 % (<6.0); Total Hemoglobin (HGBA1C) 3265.3314 umol/L
== END 2023-12-22 07:38 | disposition home or self-care (01) ==
LOC: HO.LAB 07:37
PROVIDERS: PCP Internal Medicine; Visit Provider Internal Medicine
DX: Z00.01 Encounter for general adult medical examination with abnormal findings (principal); I10 Essential (primary) hypertension; E78.9 Disorder of lipoprotein metabolism, unspecified; E55.9 Vitamin D deficiency, unspecified; E66.01 Morbid (severe) obesity due to excess calories; Z68.42 Body mass index [BMI] 45.0-49.9, adult; E53.8 Deficiency of other specified B group vitamins; D64.9 Anemia, unspecified; R73.01 Impaired fasting glucose
CPT/HCPCS: 36415; 80053; 80061; 83036; 85025; 96127

== ENCOUNTER 2023-12-22 10:29 | Outpatient (AMB) | payer OTHER, SELFPAY ==
[2023-12-22 10:31] VITALS: BP 130/70; PULSE 72; O2SAT 98; BMI 49.1
--- NOTE | 2023-12-22 10:31 | A.OFFPC_ITS ---
Vital Signs 12/22/23 10:31 Height 5 ft 2 in Weight 268 lb 4 oz BMI 49.1 BP 130/70 Blood Pressure Location Lt brachial Position Sitting Pulse 72 Pulse Source Pulse Oximeter Pulse Oximetry (%) 98 Intake Visit Reasons: annual PE Allergies No Known Allergies Allergy (Unknown, Verified 12/22/23 10:31) U Medication List - Last Reconciled 12/22/23 by Madina Esparza MD ascorbic acid (vitamin C) 500 mg PO DAILY atorvastatin 20 mg PO BEDTIME 90 days biotin mcg PO cholecalciferol (vitamin D3) 125 mcg PO BEDTIME cyanocobalamin (vitamin B-12) 1,000 mcg PO TUSA docusate sodium 100 mg PO BID PRN ferrous sulfate 324 mg PO TUSA hydrochlorothiazide 25 mg PO DAILY 90 days levonorgestrel (Mirena) intrauterine omeprazole magnesium (Prilosec OTC) 20 mg PO DAILY Tobacco use date assessed: 03/24/23 Dental Screening Dental Screen Date: 03/24/23 HPI annual PE HPI Details Patient is a 43-year-old female came in today for physical examination Labs done recently reviewed Mammogram is up-to-date OBGYN visit is up-to-date Blood pressure is controlled Patient is morbidly obese and is requesting referral to weight loss program [facility] Continue atorvastatin 20 mg for lipid control Patient is also on vitamin-D and B12 supplement we will check the liver with next set of lab in 6 months Hemoglobin came back normal she is on iron supplement Hydrochlorothiazide for blood pressure control And omeprazole for GERD symptoms [id number]. Follow-up 6 months physical exam 1 year [facility] Medical History Presence of Mirena IUD Abnormal LFTs Gallstone Morbid obesity with BMI of 45.0-49.9, adult High cholesterol Hypertension Surgical History No pertinent past surgical history Family History Father Hyperlipidemia Diabetes mellitus COPD (chronic obstructive pulmonary disease) Mother Hyperlipidemia HTN (hypertension) Skin cancer Maternal Grandfather No problems noted. Maternal Grandmother No problems noted. Paternal Grandmother CHF (congestive heart failure) Dementia Paternal Grandfather No problems noted. Sister No problems noted. Son No problems noted. Son No problems noted. Social History Housing: House Alcohol intake: never Patient Tobacco Use Status: Never used Tobacco e-Cigarette/Vaping Use: Never Used Second Hand Smoke Exposure: No service: No Current occupational status: employed Current occupational exposures/hazards: No Sexual orientation: Straight/Heterosexual Gender identity: Female Cognitive needs: No Hearing needs: No Vision needs: Yes Female Reproductive History Menstrual Age of Menarche: 12 Questionnaire PHQ-9 Over the last 2 weeks, how often have you been bothered by any of the following problems? 1. Little interest or pleasure in doing things: not at all 2. Feeling down, depressed, or hopeless: not at all 3. Trouble falling or staying asleep, or sleeping too much: not at all 4. Feeling tired or having little energy: not at all 5. Poor appetite or overeating: not at all 6. Feeling bad about yourself - or that you are a failure or have let yourself or your family down: not at all 7. Trouble concentrating on things, such as reading the newspaper or watching television: not at all 8. Moving or speaking so slowly that other people could have noticed. Or the opposite - being so fidgety or restless that you have been moving around a lot more than usual: not at all 9. Thoughts that you would be better off or of hurting yourself in some way: not at all Total score: 0 Depression Screening Interpretation: Negative Depression Screening Done: Yes 14763 - PHQ-9 Billing: Yes Source: Developed by Drs. Shant Hansen, Tea Springer, Devon Chawla and colleagues, with an educational chandler from [employer]. Thrive Questionnaire Date Thrive assessed: 12/22/23 I am a: Patient What is your living situation today?: I have a steady place to live Within the past 12 months, did the food you bought not last and you didn't have the money to get more?: Never true Within the past 12 months, did you worry whether your food would run out before you got money to buy more?: Never true Do you have trouble paying for medicines?: No Do you have trouble getting transportation to medical appointments?: No Do you have trouble paying your heating and electricity bill?: No Do you have trouble taking care of your child, family member or friend?: No Do you have trouble with day-to-day activities such as bathing, preparing meals, shopping, managing finances, etc.?: No Are you interested in more education?: No Please select the resources that you would like help with: None Currently or been in a relationship where the following occur: No concerns reported THRIVE Score: 0 AUDIT C Alcohol Use Questionnaire (AUDIT-C) 1. How often do you have a drink containing alcohol?: Monthly or less 2. How many drinks containing alcohol do you have on a typical day when you are drinking?: 1 or 2 3. How often do you have six or more drinks on one occasion?: Never Total Score: 1 Score Reviewed/Action Taken: Yes YUE-7 AMB Questionnaire YUE-7 Date YUE - 7 assessed: 12/22/23 Feeling nervous, anxious, or on edge: 0 = Not at all Not being able to stop or control worryin = Not at all Worrying too much about different things: 0 = Not at all Trouble relaxin = Not at all Being so restless that it is hard to sit still: 0 = Not at all Becoming easily annoyed or irritable: 0 = Not at all Feeling afraid as if something awful might happen: 0 = Not at all Total YUE-7 score (0-4 normal; 5-9 mild; 10-14 moderate; 15-21 severe): 0 Source: Developed by Drs. Shant Hansen, Tea Springer, Devon Chawla and colleagues, with an educational chandler from [employer]. YUE-7 Assessment Billing YUE-7 Assessment Tool: YUE-7 Assessment 22422 Review of Systems Const Denies chills, Denies fever(s) and Denies headache(s) Eyes Denies blurry vision ENT Denies headache(s), Denies nasal discharge, Denies nasal obstruction, Denies odynophagia and Denies sinus pain Card Denies chest pain at rest and Denies chest pain with activity Resp Denies cough and Denies hemoptysis GI Denies diarrhea, Denies odynophagia, Denies vomiting and Denies hematemesis Reports as per HPI Musc Denies abnormal gait Skin/Breast Reports as per HPI Neuro Denies Neuro-related abnormal movements, Denies Abnormal speech present, Denies abnormal gait, Denies headache(s) and Denies Sensory deficit (Neuro) Psych Denies mood swings and Denies paranoia Endo Reports as per HPI Rodriguez/Lymph Reports as per HPI Aller/Immun Reports as per HPI Physical exam (Primary Care) Vital Signs: Last Vital Signs Pulse 72 12/22/23 10:31 BP 130/70 12/22/23 10:31 Pulse Ox 98 12/22/23 10:31 BMI result Body Mass Index 49.1 Tobacco/Smoking Status: Tobacco use Status Tobacco use date assessed 03/24/23 12/22/23 10:32 Patient Tobacco Use Status Never used Tobacco 12/22/23 10:32 e-Cigarette/Vaping Use Never Used 12/22/23 10:32 PHQ-9: PHQ-9 Score PHQ-9: Total score 0 12/22/23 10:32 Depression Screening Interpretation: Negative Thrive Assessment: Date of Thrive Assessment Date Thrive assessed 12/22/23 12/22/23 10:32 Currently or been in a relationship where the following occur: No concerns reported Const General: cooperative, comfortable and no acute distress Orientation/consciousness: patient oriented x3 HENMT Head: Yes normocephalic and Yes atraumatic Eyes General: appearance normal, both eyes and all related structures Pupils: Equal, round and reactive pupils present EOM: EOMs intact bilaterally Neck Neck: Yes supple and No lymphadenopathy Thyroid: Thyroid normal Lymphatic: no lymphadenopathy noted Resp Effort & Inspection: normal respiratory effort and able to speak in complete sentences Auscultation: clear to auscultation bilaterally Cardio Heart sounds: S1 normal heart sound present and S2 normal heart sound present GI Palpation (GI): Soft to palpation and nontender Auscultation: normal bowel sounds General: Yes no CVA tenderness Back/Spine/Pelvis Back: no CVA tenderness Skin General skin exam: elasticity normal and turgor normal Neuro General: patient oriented x3 and gait normal Cranial nerves: Yes Equal, round and reactive pupils present Speech: No Abnormal speech present Sensory Exam: No Sensory deficit (Neuro) Coordination: tandem gait normal and Romberg test negative Extrem General: Yes normal exam except as noted and No edema Coding Level of Care Code Est Pt Level 3 (60622) Est Pt Prev Care 40-64y(27034) Diagnoses Encounter for general adult medical examination with abnormal findings Z00.01 Hypertension, essential I10 Lipid disorder E78.9 Vitamin D deficiency E55.9 Morbid obesity with BMI of 45.0-49.9, adult E66.01; Z68.42 B12 deficiency E53.8 Additional Codes YUE-7 Assessment Billing - YUE-7 Assessment Tool: YUE-7 Assessment 38659 ([id number]) Assessment & Plan Assessment & Plan (1) Encounter for general adult medical examination with abnormal findings: Code(s): Z00.01 - Encounter for general adult medical examination with abnormal findings Category: Medical (2) Hypertension, essential: Code(s): I10 - Essential (primary) hypertension Category: Medical (3) Lipid disorder: Code(s): E78.9 - Disorder of lipoprotein metabolism, unspecified Category: Medical (4) Vitamin D deficiency: Code(s): E55.9 - Vitamin D deficiency, unspecified Category: Medical (5) Morbid obesity with BMI of 45.0-49.9, adult: Code(s): E66.01 - Morbid (severe) obesity due to excess calories; Z68.42 - Body mass index [BMI] 45.0-49.9, adult Category: Medical (6) B12 deficiency: Code(s): E53.8 - Deficiency of other specified B group vitamins Category: Medical Plan Patient is a 43-year-old female came in today for physical examination Labs done recently reviewed Mammogram is up-to-date OBGYN visit is up-to-date Blood pressure is controlled Patient is morbidly obese and is requesting referral to weight loss program [facility] Continue atorvastatin 20 mg for lipid control Patient is also on vitamin-D and B12 supplement we will check the liver with next set of lab in 6 months Hemoglobin came back normal she is on iron supplement Hydrochlorothiazide for blood pressure control And omeprazole for GERD symptoms [id number]. Follow-up 6 months physical exam 1 year Orders: Orders Comprehensive [place]. Panel Fast 5 Months E53.8 - Deficiency of other specified B group vitamins, E55.9 - Vitamin D deficiency, unspecified, E66.01 - Morbid (severe) obesity due to excess calories, E78.9 - Disorder of lipoprotein metabolism, unspecified, I10 - Essential (primary) hypertension, Z00.01 - Encounter for general adult medical examination with abnormal findings, Z68.42 - Body mass index [BMI] 45.0-49.9, adult Lipid Panel 5 Months E53.8 - Deficiency of other specified B group vitamins, E55.9 - Vitamin D deficiency, unspecified, E66.01 - Morbid (severe) obesity due to excess calories, E78.9 - Disorder of lipoprotein metabolism, unspecified, I10 - Essential (primary) hypertension, Z00.01 - Encounter for general adult medical examination with abnormal findings, Z68.42 - Body mass index [BMI] 45.0- 49.9, adult Vitamin B12 5 Months E53.8 - Deficiency of other specified B group vitamins, E55.9 - Vitamin D deficiency, unspecified, E66.01 - Morbid (severe) obesity due to excess calories, E78.9 - Disorder of lipoprotein metabolism, unspecified, I10 - Essential (primary) hypertension, Z00.01 - Encounter for general adult medical examination with abnormal findings, Z68.42 - Body mass index [BMI] 45.0- 49.9, adult Complete Blood Count Auto Diff 5 Months E53.8 - Deficiency of other specified B group vitamins, E55.9 - Vitamin D deficiency, unspecified, E66.01 - Morbid (severe) obesity due to excess calories, E78.9 - Disorder of lipoprotein metabolism, unspecified, I10 - Essential (primary) hypertension, Z00.01 - Encounter for general adult medical examination with abnormal findings, Z68.42 - Body mass index [BMI] 45.0-49.9, adult TSH reflex Free T4 5 Months E53.8 - Deficiency of other specified B group vitamins, E55.9 - Vitamin D deficiency, unspecified, E66.01 - Morbid (severe) obesity due to excess calories, E78.9 - Disorder of lipoprotein metabolism, unspecified, I10 - Essential (primary) hypertension, Z00.01 - Encounter for general adult medical examination with abnormal findings, Z68.42 - Body mass index [BMI] 45.0-49.9, adult Vitamin D 25-OH (D2 and D3) 5 Months E53.8 - Deficiency of other specified B group vitamins, E55.9 - Vitamin D deficiency, unspecified, E66.01 - Morbid (severe) obesity due to excess calories, E78.9 - Disorder of lipoprotein m etabolism, unspecified, I10 - Essential (primary) hypertension, Z00.01 - Encounter for general adult medical examination with abnormal findings, Z68.42 - Body mass index [BMI] 45.0-49.9, adult Hemoglobin A1c 5 Months E53.8 - Deficiency of other specified B group vitamins, E55.9 - Vitamin D deficiency, unspecified, E66.01 - Morbid (severe) obesity due to excess calories, E78.9 - Disorder of lipoprotein metabolism, unspecified, I10 - Essential (primary) hypertension, Z00.01 - Encounter for general adult medical examination with abnormal findings, Z68.42 - Body mass index [BMI] 45.0- 49.9, adult Referrals Bariatric Surgery Referral E66.01 - Morbid (severe) obesity due to excess calories, Z68.42 - Body mass index [BMI] 45.0-49.9, adult Medications: Refilled hydrochlorothiazide 25 mg PO DAILY 90 tabs 1RF 90 days I10 - Essential (primary) hypertension atorvastatin 20 mg PO BEDTIME 90 tabs 1RF 90 days E78.9 - Disorder of lipoprotein metabolism, unspecified
== END 2023-12-22 10:51 | disposition home or self-care (01) ==
PROVIDERS: PCP Internal Medicine; Visit Provider Internal Medicine
DX: Z00.00 Encounter for general adult medical examination without abnormal findings (principal); I10 Essential (primary) hypertension; E66.01 Morbid (severe) obesity due to excess calories; Z68.42 Body mass index [BMI] 45.0-49.9, adult; E78.9 Disorder of lipoprotein metabolism, unspecified; E55.9 Vitamin D deficiency, unspecified; E53.8 Deficiency of other specified B group vitamins

== ENCOUNTER 2024-01-14 13:31 | Outpatient (AMB) | payer OTHER, SELFPAY ==
--- NOTE | 2024-01-14 13:35 | A.OFFVIS_ITS ---
Vital Signs 01/14/24 13:36 Height 5 ft 2 in Weight 268 lb BMI 49.0 BP 112/76 Intake Visit Reasons: IUD Replacement (fell off) Intake Note: pt c/o heavy bleeding and clots since IUD fell out Wednesday01/10/24 with a clot Glove Finisher: Glove Finisher Present (Edda) Allergies No Known Allergies Allergy (Unknown, Verified 01/14/24 13:36) U Is last menstrual period known: Yes Last menstrual period: 01/06/24 HPI Comments Details: Patient is here today with concerns that her IUD fell out with heavy bleeding last , could she continues to have vaginal bleeding on the heavier side. C/o fatigue, no lightheadedness, dizziness or shortness of breath. History of AUB. Mirena IUD inserted 12/08/2023. Last EMB pathology showed no evidence of endometrial hyperplasia or malignancy Last co testing in 08/12 was negative Pelvic ultrasound done recently showed the following: IMPRESSION: 1. 2 uterine fibroids. 2. Markedly thickened and heterogeneous endometrium. 3. Normal ovaries [facility] Medical History Presence of Mirena IUD Abnormal LFTs Gallstone Morbid obesity with BMI of 45.0-49.9, adult High cholesterol Hypertension Surgical History No pertinent past surgical history Family History Father Hyperlipidemia Diabetes mellitus COPD (chronic obstructive pulmonary disease) Mother Hyperlipidemia HTN (hypertension) Skin cancer Maternal Grandfather No problems noted. Maternal Grandmother No problems noted. Paternal Grandmother CHF (congestive heart failure) Dementia Paternal Grandfather No problems noted. Sister No problems noted. Son No problems noted. Son No problems noted. Social History Housing: House Alcohol intake: never Patient Tobacco Use Status: Never used Tobacco e-Cigarette/Vaping Use: Never Used Second Hand Smoke Exposure: No service: No Current occupational status: employed Current occupational exposures/hazards: No Sexual orientation: Straight/Heterosexual Gender identity: Female Cognitive needs: No Hearing needs: No Vision needs: Yes Female Reproductive History Menstrual Age of Menarche: 12 Date of last menstrual period: 01/06/24 Review of Systems Const All systems reviewed & are unremarkable except as noted in HPI and below Physical Exam Vital Signs: Last Vital Signs BP 112/76 01/14/24 13:36 BMI result Body Mass Index 49.0 Const General: cooperative, healthy appearing and no acute distress Orientation/consciousness: patient oriented x3 GI Inspection: Yes normal to inspection Palpation (GI): Soft to palpation and Other GI palpation findings present (Nontender) Rectal Exam - Female: visual inspection normal General: Yes bladder normal to palpation and Yes no CVA tenderness External Female Exam: normal appearance of the urethra Speculum Exam - Vagina: normal appearance of the vagina, normal palpation, nor mal vaginal discharge and vaginal bleeding (Large clot) Speculum Exam - Cervix: normal appearance of the cervix and normal palpation Bimanual exam- vagina & uterus: normal bimanual exam, normal palpation, uterine size normal, bladder normal to palpation, normal palpation, uterine shape normal and non-tender Bimanual Exam- Adnexa, other: normal adnexae OB/external & speculum: vaginal bleeding (Large clot) Back/Spine/Pelvis Back: no CVA tenderness Neuro General: patient oriented x3 Office Procedures IUD Insert/Removal Details [id number] Insertion Procedure code (CPT) selection complete Contraception Insert/Removal Details Details: The patient is presenting for Mirena IUD insertion Urine test was done in the office and was negative; All the contraindications were excluded. The following possible complications were discussed with the patient: Intrauterine , Ectopic , Sepsis, Pelvic Infection, Irregular Bleeding and Amenorrhea, Perforation, Expulsion, Ovarian Cysts, Breast Cancer, The following adverse effects were discussed with the patient: alteration of menstrual bleeding pattern, including: unscheduled uterine bleeding decreased uterine bleeding increased scheduled uterine bleeding female genital tract bleeding ,amenorrhea , genital discharge , vulvovaginitis , breast pain , benign ovarian cyst and associated complications , dysmenorrhea , Gastrointestinal disorders abdominal/pelvic pain, headache/migraine , back pain , acne , depression Alternative options were discussed with the patient including but not limited: control pills, patch, NuvaRing, Depo-medroxyprogesterone acetate, N explanon, copper IUD, sterilization, vasectomy, others The procedure was explained in detail to patient , at the end patient signed the informed consent obtained. A no touch technique was used throughout the procedure. A speculum was placed into vagina and cervix was cleaned with betadine). A tenaculum was placed. A plastic sound was advanced through the external and internal os until it reached the fundus of the uterus, the depth was 8 cm. The sound was then withdrawn. The IUD was loaded in a sterile manner and advanced into position. The string was visualized and cut to 3 cm. Tenaculum site hemostatic. All instruments removed from vagina. Patient tolerated the procedure well. NO complications were noted. Patient was instructed to call for fever over 100.4, significant pain unrelieved by Motrin, IUD expulsion, heavy bleeding, or abnormal discharge. In addition, the following clinical considerations were discussed with the patient to call for removal: A stroke or heart attack ,Very severe or migraine headaches ,Unexplained fever ,Yellowing of the skin or whites of the eyes, as these may be signs of serious liver problems , or suspected , Pelvic pain or pain during sex ,HIV positive seroconversion in herself or her partner , Possible exposure to sexually transmitted infections Unusual vaginal discharge or genital sores , severe vaginal bleeding or bleeding that lasts a long time, or if she misses a menstrual period, Inability to feel Mirena's threads Counseled the patient that the IUD does not protect against STI's, recommended use of condoms for the first 7 days post insertion and explained to the patient that condoms are recommended for patients at risk for sexually transmitted infections. Informed the patient that Mirena IUD is FDA approved for 8 years for contraception for 5 years for the treatment of heavy menses Instructed the patient to schedule a Follow up appointment in 4 to 6 weeks following insertion. This note was generated with a voice recognition program. Some errors may have been overlooked during the review of this note. Sometimes these errors may affect the content or meaning of a given sentence. 20326 - Insertion Office Meds Mirena 21 mcg/24 hr (up to 8 years) 52 mg intrauterine device Performing Provider: Abe Hoover MD Performing Location: [facility] [place] [facility] Administered by: TIA Overton on 01/18/24 08:24 Dose Route Admin Location Dispensed Lot Number Expiration Date [facility] Supervisor Braiding 1 device intrauterine 1 device [id number] 02/18/26 65873-215-29 [employer] Results AMB Test Urine AMB Test Urine Negative Last Edit by TIA Overton on 01/14/24 13:50 Results Reviewed Results Reviewed: Laboratory Last Values [facility] Negative 01/14/24 13:50 Assessment & Plan Assessment & Plan (1) Abnormal uterine bleeding (AUB): Code(s): N93.9 - Abnormal uterine and vaginal bleeding, unspecified Category: Medical Plan: H&H done today was 12.4/33.9 Urine test done was negative GC and chlamydia done in 08/12 was negative Discussed with the patient the results of the work up done and options of treatment including Lysteda, control pills, Mirena IUD, endometrial ablation and hysterectomy. All pros, cons, risks and benefits if each option was discussed with the patient and the patient decided to go ahead with Mirena IUD so a more detailed discussion about it was conducted including mechanism of action, risks (uterine perforation, infection, injury to bladder, bowel, displacement, and others) benefits (hypo menorrhea, amenorrhea, ...). Mirena IUD inserted, see procedure (2) Unsuccessful IUD insertion: Code(s): Z53.8 - Procedure and treatment not carried out for other reasons Plan See procedure notes. This note is constructed using voice recognition software. While every effort has been made to ensure accuracy, pile driver operator barge mounted errors may have been included. Orders: Orders AMB HCG Urine Test 01/14/24 Marielos Whitt CNM Z32.02 - Encounter for test, result negative Complete Blood Count no Diff 01/14/24 Marielos Whitt CNM N93.9 - Abnormal uterine and vaginal bleeding, unspecified AMB IUD Insertion/Removal - Practice Supplied 01/14/24 Abe Hoover MD Z30.430 - Encounter for insertion of intrauterine contraceptive device Medications: New Mirena (levonorgestrel) 1 device intrauterine ONCE 1 ea 0RF Abnormal uterine bleeding NS Abe Hoover MD Z30.430 - Encounter for insertion of intrauterine contraceptive device Coding Level of Care Code Est Pt Level 3 (69406) Procedure Only Diagnoses Abnormal uterine bleeding (AUB) N93.9 Unsuccessful IUD insertion Z53.8 CPT Codes Details - Contraception: 65851 - Insertion ([id number]) Details - CPT: 74214-PTC Insertion ([id number])
[2024-01-14 13:36] VITALS: BP 112/76; BMI 49.0
== END 2024-01-14 14:55 | disposition home or self-care (01) ==
PROVIDERS: PCP Internal Medicine; Visit Provider Obstetrics & Gynecology
DX: Z30.430 Encounter for insertion of intrauterine contraceptive device (principal); N32.81 Overactive bladder; N30.10 Interstitial cystitis (chronic) without hematuria; N39.0 Urinary tract infection, site not specified
CPT/HCPCS: 58300

== ENCOUNTER 2024-01-14 13:31 | Outpatient (REF) | payer OTHER, SELFPAY ==
[2024-01-14 14:51] LABS: Hematocrit 33.9 % (37.0-47.0); Hemoglobin 12.4 g/dl (12.0-16.0); Mean Corpuscular HGB Conc 36.6 g/dl (31.0-35.0); Mean Corpuscular Hemoglobin 32.7 pg (27.0-33.0); Mean Corpuscular Volume 89.4 fL (80.0-98.0); Mean Platelet Volume 9.7 fL (9.4-12.3); Platelet Count 243 X10*3/uL (160-400); Red Blood Count 3.79 X10*6/uL (4.20-5.50); Red Cell Distribution Width 12.6 % (11.0-16.0); White Blood Count 7.7 X10*3/uL (4.8-10.8)
== END 2024-01-14 13:32 | disposition home or self-care (01) ==
LOC: HO.LAB 13:31
PROVIDERS: PCP Internal Medicine; Visit Provider Advanced Practice Midwife
DX: N93.9 Abnormal uterine and vaginal bleeding, unspecified (principal); Z30.430 Encounter for insertion of intrauterine contraceptive device; Z32.02 Encounter for pregnancy test, result negative
CPT/HCPCS: 36415; 58300; 81025; 85027; J7298

== ENCOUNTER 2024-01-19 13:20 | Outpatient (AMB) | payer OTHER, SELFPAY ==
[2024-01-19 13:32] VITALS: BP 130/84; BMI 49.0
--- NOTE | 2024-01-19 13:32 | MHC.OFFVIS ---
Vital Signs 01/19/24 13:32 Height 5 ft 2 in Weight 268 lb BMI 49.0 BP 130/84 Blood Pressure Location Lt brachial Position Sitting Intake Visit Reasons: IUD fell out Allergies No Known Allergies Allergy (Unknown, Verified 01/19/24 13:33) U [facility] Comments Details: The patient is presenting few days after 2nd Mirena IUD insertion because it fell out. The following workup was done recently: H&H= 12.4/33.9 TSH, GC and chlamydia were negative. Endometrial biopsy pathology showed the following: Endometrium, biopsy: Benign proliferative endometrium, and fragments of benign endocervical glandular and squamous epithelium; no atypia or carcinoma Co testing was done was negative. Mammogram was BI-RADS 1 Pelvic ultrasound showed the following: Uterus: The uterus is anteverted and measures 11.3 x 7.3 x 7.4. There are 2 fibroids not previously appreciated: Anterior fibroid on the left measures 1.4 x 1.4 x 1.2 cm. Posterior fibroid on the right measures 2.2 x 2.3 x 2.1 cm. The endometrium is markedly thickened and heterogeneous measuring 2.6 cm. Upper limits of normal is 1.6 cm. Adnexa: Both ovaries are visualized. There is normal color flow to the adnexa. There is no ovarian torsion. There is a small amount of free fluid within the cul-de-sac. The ovaries are normal in appearance. Right ovary measures 2.4 x 1.6 x 1.4 cm. Volume 2.8 mL. Left ovary measures 2.6 x 1.9 x 1.7 cm. Volume 4.4 mL. [facility] Medical History Presence of Mirena IUD Abnormal LFTs Gallstone Morbid obesity with BMI of 45.0-49.9, adult High cholesterol Hypertension Surgical History No pertinent past surgical history Family History Father Hyperlipidemia Diabetes mellitus COPD (chronic obstructive pulmonary disease) Mother Hyperlipidemia HTN (hypertension) Skin cancer Maternal Grandfather No problems noted. Maternal Grandmother No problems noted. Paternal Grandmother CHF (congestive heart failure) Dementia Paternal Grandfather No problems noted. Sister No problems noted. Son No problems noted. Son No problems noted. Social History Housing: House Alcohol intake: never Patient Tobacco Use Status: Never used Tobacco e-Cigarette/Vaping Use: Never Used Second Hand Smoke Exposure: No service: No Current occupational status: employed Current occupational exposures/hazards: No Sexual orientation: Straight/Heterosexual Gender identity: Female Cognitive needs: No Hearing needs: No Vision needs: Yes Female Reproductive History Menstrual Age of Menarche: 12 Review of Systems Const All systems reviewed & are unremarkable except as noted in HPI and below Reports as per HPI and Reports no additional complaints GI Reports no additional complaints Reports no additional complaints Physical Exam Vital Signs: Last Vital Signs BP 130/84 01/19/24 13:32 BMI result Body Mass Index 49.0 Assessment & Plan Assessment & Plan (1) Abnormal uterine bleeding (AUB): Comment: Uterine myomas Code(s): N93.9 - Abnormal uterine and vaginal bleeding, unspecified Category: Medical Plan: Discussed with the patient the results of the ultrasound and the size of the myomas. Discussed with the patient risk of myosarcoma and symptoms that are caused by myomas including but not limited to pelvic pain, pressure symptoms, abnormal uterine bleeding. In addition discussed with the patient options of treatment for myomas including: Serial ultrasounds periodically to follow-up on the size of the myoma while targeting the treatment against fibroids related symptoms ( control pills, Mirena IUD, progesterone treatment, GnRH agonist/antagonist, uterine artery embolization or endometrial ablation) versus surgical treatment including hysterectomy and or myomectomy. All pros and cons, risks and benefits of all options were discussed with the patient. The patient understands that delay in surgical treatment in case of myosarcoma can affect her prognosis, after further discussion, the patient decided to proceed with cyclic progesterone and schedule a consult with Interventional Radiology for uterine artery embolization counseling. so a more detailed discussion re: Progesterone treatment including mechanism of action, benefits (regular menses, endometrial protection form unopposed estrogen and reduction in the risk of endometrial hyperplasia and/or cancer ...), risks (Thrombosis, mood changes, weight gain, breast soreness, ? increased breast ca, others). Instructions were given to use a back- up method for contraception since this is not a method control, take Prometrium 200 mg p.o. 1 tablet daily starting day 15-24 and to schedule a 3 months follow-up appointment; patient verbalized understanding and agreed with the plan. Orders: Orders IR embolization arterial Today N93.9 - Abnormal uterine and vaginal bleeding, unspecified Medications: New progesterone micronized (Prometrium) Take the pill 1 tablet a day cyclically every month from day 15-24 day 1 being the 1st day of next menstrual cycle 200 mg PO BEDTIME 10 days 30 caps 0RF Coding Level of Care Code Est Pt Level 3 (01385) Diagnoses Abnormal uterine bleeding (AUB) N93.9
== END 2024-01-19 14:23 | disposition home or self-care (01) ==
LOC: HO.HWS 13:21
PROVIDERS: PCP Internal Medicine; Visit Provider Obstetrics & Gynecology
DX: N93.9 Abnormal uterine and vaginal bleeding, unspecified (principal)
CPT/HCPCS: 99213

== ENCOUNTER → 2024-01-19 13:20 | Outpatient (BNVA) | payer OTHER, SELFPAY | PROVIDERS: PCP Internal Medicine; Visit Provider Obstetrics & Gynecology ==

== ENCOUNTER 2024-02-08 11:22 | Outpatient (REF) | payer OTHER, SELFPAY | END 2024-02-08 11:23 | disposition home or self-care (01) | LOC: HO.US 11:22 | PROVIDERS: PCP Internal Medicine; Visit Provider Advanced Practice Midwife | DX: D21.9 Benign neoplasm of connective and other soft tissue, unspecified (principal) | CPT/HCPCS: 76830; 76856 ==

== ENCOUNTER 2024-04-11 15:14 | Outpatient (AMB) | payer OTHER, SELFPAY ==
--- NOTE | 2024-04-11 15:14 | A.OFFVIS_ITS ---
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 Had 2 IUDs 1 expelled 18 days after insertion in the 2nd 1 was 2 days after insertion. She has a MRI this Wednesday for pre planning a uterine embolization procedure in Radiology. She currently use been on progesterone cyclically and reports no improvement in bleeding for the last 3 months. She has a follow up with Dr. Hoover to discuss her plan of care on 04/20/2024. [facility] Medical History (Updated 04/11/24 @ 15:35 by Marielos Whitt CNM) Abnormal LFTs Gallstone Morbid obesity with BMI of 45.0-49.9, adult High cholesterol Hypertension Surgical History No pertinent past surgical history Family History Father Hyperlipidemia Diabetes mellitus COPD (chronic obstructive pulmonary disease) Mother Hyperlipidemia HTN (hypertension) Skin cancer Maternal Grandfather No problems noted. Maternal Grandmother No problems noted. Paternal Grandmother CHF (congestive heart failure) Dementia Paternal Grandfather No problems noted. Sister No problems noted. Son No problems noted. Son No problems noted. Social History Housing: House Alcohol intake: never Patient Tobacco Use Status: Never used Tobacco e-Cigarette/Vaping Use: Never Used Second Hand Smoke Exposure: No service: No Current occupational status: employed Current occupational exposures/hazards: No Sexual orientation: Straight/Heterosexual Gender identity: Female Cognitive needs: No Hearing needs: No Vision needs: Yes Female Reproductive History Menstrual Age of Menarche: 12 Review of Systems Const All systems reviewed & are unremarkable except as noted in HPI and below Endo Reports no additional complaints Physical Exam Const General: cooperative, healthy appearing and no acute distress Psych Appearance: well kempt Attitude: cooperative Thought process: Normal thought process present Results Reviewed Results Reviewed: [address] [address] Ultrasound Report Signed Patient: Mari Brito MR#: [id number] : 1980 Acct:[id number] Age/Sex: 43 / F ADM Date: 02/08/24 Loc: HO.US Attending Dr: Marielos Whitt CNM Ordering Physician: Marielos Whitt CNM Date of Service: 02/08/24 Procedure(s): US pelvic and transvaginal Accession Number(s): [id number] cc: Madina Esparza MD; Marielos Whitt CNM~ EXAMINATION:US PELVIS TRANSABDOMINAL AND TRANSVAGINAL CLINICAL INFORMATION: D21.9 - Benign neoplasm of connective and other soft tissue, unspecified COMPARISON: August 19, 2023 LMP: January 29, 2024 FINDINGS: UTERUS: The uterus is anteverted. Size: 10.7 x 5.2 x 7.6 cm. Uterine mass: Intramural uterine masses likely fibroids the one in the posterior wall measures 2.3 cm unchanged. Other fibroids seen on prior exam could not be found on today's study. Cervix: There are nabothian cysts otherwise Grossly unremarkable. Endometrium: No ultrasound evidence of endometrial lesion. endometrial thickness measures 0.4 cm ADNEXA: Normal Right ovary: Normal in size. Left ovary: Normal in size. Septated cystic structure protruding from the left ovary 1.4 cm. Doppler exam: Normal Doppler flow identified in both ovaries. FREE FLUID: Trace amount of free fluid. OTHER FINDINGS: None US/US pelvic and transvaginal IMPRESSION: 1. Redemonstration of intramural uterine masses likely fibroids the largest measure up to 2.3 cm. Other fibroids seen on prior exam could not be found on today's study. 2. Septated cystic structure protruding from the left ovary 1.4 cm. 3. Nabothian cysts. Electronically signed by: Mally Zhu MD 03/18/2024 04:19 PM [facility] Dictated By: Mally Zhu MD Signed By: <Electronically signed by Mally Zhu MD in OV> 03/18/24 1619 DD/ 1124 TD/TT: 02/08/24 1200 Director Digital Analytics: HS Assessment & Plan Assessment & Plan (1) Fibroid: Code(s): D21.9 - Benign neoplasm of connective and other soft tissue, unspecified Category: Medical (2) Encounter to discuss test results: Code(s): Z71.2 - Person consulting for explanation of examination or test findings Category: Medical Plan Reviewed ultrasound findings stable fibroid with others not seen. She has an MRI scheduled this Wednesday and planning a uterine embolization procedure to treat her fibroid. Septated cystic structure off the left ovary, await MRI results for further information and plan of care. The patient expressed understanding and agreement with the plan of care. All of her questions and concerns were addressed to the best of my ability. This note is constructed using voice recognition software. While every effort has been made to ensure accuracy, historical society director errors may have been included. Coding Level of Care Code Est Pt Level 3 (28608) Diagnoses Fibroid D21.9 Encounter to discuss test results Z71.2
== END 2024-04-11 15:32 | disposition home or self-care (01) ==
LOC: HO.HWS 15:14
PROVIDERS: PCP Internal Medicine; Visit Provider Advanced Practice Midwife
DX: D21.9 Benign neoplasm of connective and other soft tissue, unspecified (principal); Z71.2 Person consulting for explanation of examination or test findings
CPT/HCPCS: 99213

== ENCOUNTER → 2024-04-11 15:14 | Outpatient (BNVA) | payer OTHER, SELFPAY | PROVIDERS: PCP Internal Medicine; Visit Provider Advanced Practice Midwife ==

== ENCOUNTER 2024-04-14 09:29 | Outpatient (REF) | payer OTHER, SELFPAY ==
--- NOTE | ~2024-04-14 | MR_ITS ---
EXAMINATION: MR PELVIS WITHOUT THEN WITH IV CONTRAST HISTORY: FIBROIDS, LEIOMYOMA OF UTERUS, PELVIC PAIN. TECHNIQUE: Axial T1 and fat-suppressed T2, and sagittal and coronal T2-weighted MR images of the pelvis were obtained. Subsequently, axial fat-suppressed T1-weighted images were obtained before and after the intravenous demonstration of 10 mL Gadavist. COMPARISON: Correlation is made with a pelvic ultrasound dated 02/08/2024. FINDINGS: The uterus is enlarged, measuring 12.1 x 6.9 x 7.6 cm. There are nabothian cysts in the cervix. The junctional zone is thickened measuring up to 14 mm in thickness. In addition, there are small linear and cystic T2 hyperintense foci in the junctional zone. Findings are consistent with adenomyosis. The largest cyst is in the anterior uterine body on the right measuring 8 mm. This is also hyperintense on T1-weighted images consistent with blood products. There are multiple uterine fibroids, including a 1.3 cm intramural fibroid in the fundus and a 1.6 cm intramural fibroid in the lower uterine segment on the right. Additional smaller fibroids are noted, all of which are intramural in location. The endometrium is not thickened. The right ovary measures 3.1 x 2.3 x 1.8 cm and demonstrates multiple follicles. The left ovary measures 3.7 x 1.8 x 1.8 cm and demonstrates multiple small follicles. No ascites or lymphadenopathy is seen in the pelvis. The visualized bones demonstrate normal signal intensity. MR/MR pelvis wo/w con IMPRESSION: 1. Findings consistent with uterine adenomyosis as described. 2. Multiple uterine fibroids as discussed above. 3. The ovaries are unremarkable. Electronically signed by: Shant Shetty MD 04/14/2024 12:40 PM [facility]
[2024-04-14] MEDS: gadobutroL 10 ML VIAL IVPUSH (10:33)
== END 2024-04-14 09:30 | disposition home or self-care (01) ==
LOC: HO.MRI 09:29
PROVIDERS: PCP Internal Medicine; Visit Provider Student in an Organized Health Care Education/Training Program
DX: D25.9 Leiomyoma of uterus, unspecified (principal)
CPT/HCPCS: 72197; A9585

== ENCOUNTER → 2024-04-14 10:00 | Outpatient (BNV) | payer OTHER, SELFPAY | PROVIDERS: PCP Internal Medicine; Visit Provider Radiology Diagnostic Radiology | DX: D25.9 Leiomyoma of uterus, unspecified (principal); N80.03 Adenomyosis of the uterus | CPT/HCPCS: 72197 ==

== ENCOUNTER 2024-04-20 10:32 | Outpatient (AMB) | payer OTHER, SELFPAY ==
--- NOTE | 2024-04-20 10:41 | MHC.OFFVIS ---
Intake Visit Reasons: 3 month med follow up Peanut Separator: Peanut Separator Present (Xiomy) Accompanied by: Self / Same As Patient Allergies No Known Allergies Allergy (Unknown, Verified 01/19/24 13:33) U [facility]PI Comments Details: Presenting for follow-up after 3 months of Prometrium, the patient did not feel her menstrual cycle has improved. The patient went for IR embolization consults and had a pelvic MRI and has a follow-up appointment with interventional radiologist regarding possible uterine artery embolization. 04/14/2024 pelvic MRI showed the following: The uterus is enlarged, measuring 12.1 x 6.9 x 7.6 cm. There are nabothian cysts in the cervix. The junctional zone is thickened measuring up to 14 mm in thickness. In addition, there are small linear and cystic T2 hyperintense foci in the junctional zone. Findings are consistent with adenomyosis. The largest cyst is in the anterior uterine body on the right measuring 8 mm. This is also hyperintense on T1-weighted images consistent with blood products. There are multiple uterine fibroids, including a 1.3 cm intramural fibroid in the fundus and a 1.6 cm intramural fibroid in the lower uterine segment on the right. Additional smaller fibroids are noted, all of which are intramural in location. The endometrium is not thickened. The right ovary measures 3.1 x 2.3 x 1.8 cm and demonstrates multiple follicles. The left ovary measures 3.7 x 1.8 x 1.8 cm and demonstrates multiple small follicles. No ascites or lymphadenopathy is seen in the pelvis. The visualized bones demonstrate normal signal intensity. [facility] Medical History Abnormal LFTs Gallstone Morbid obesity with BMI of 45.0-49.9, adult High cholesterol Hypertension Surgical History No pertinent past surgical history Family History Father Hyperlipidemia Diabetes mellitus COPD (chronic obstructive pulmonary disease) Mother Hyperlipidemia HTN (hypertension) Skin cancer Maternal Grandfather No problems noted. Maternal Grandmother No problems noted. Paternal Grandmother CHF (congestive heart failure) Dementia Paternal Grandfather No problems noted. Sister No problems noted. Son No problems noted. Son No problems noted. Social History Housing: House Alcohol intake: never Patient Tobacco Use Status: Never used Tobacco e-Cigarette/Vaping Use: Never Used Second Hand Smoke Exposure: No service: No Current occupational status: employed Current occupational exposures/hazards: No Sexual orientation: Straight/Heterosexual Gender identity: Female Cognitive needs: No Hearing needs: No Vision needs: Yes Female Reproductive History Menstrual Age of Menarche: 12 Review of Systems Const All systems reviewed & are unremarkable except as noted in HPI and below Reports as per HPI and Reports no additional complaints GI Reports no additional complaints Reports no additional complaints Assessment & Plan Assessment & Plan (1) Abnormal uterine bleeding (AUB): Comment: Uterine myomas Code(s): N93.9 - Abnormal uterine and vaginal bleeding, unspecified Category: Medical Plan: Discussed with the patient the options of treatment including uterine artery embolization, endometrial ablation or definitive surgical treatment, hysterectomy. Explained to the patient that she is a candidate for minimally invasive hysterectomy . All pros and cons risks and benefits were discussed with the patient, the patient would like to go for follow-up appointment with IR and get back to us. All questions answered, the patient verbalized understanding Coding Level of Care Code Est Pt Level 3 (11697) Diagnoses Abnormal uterine bleeding (AUB) N93.9
== END 2024-04-20 10:50 | disposition home or self-care (01) ==
PROVIDERS: PCP Internal Medicine; Visit Provider Obstetrics & Gynecology
DX: N93.9 Abnormal uterine and vaginal bleeding, unspecified (principal)
CPT/HCPCS: 99213

== ENCOUNTER 2024-05-26 06:41 | Outpatient (REF) | payer OTHER, SELFPAY ==
[2024-05-26 06:57] LABS: MANUAL DIFF FLAG NO
[2024-05-26 07:56] LABS: Basophils Percent Auto 0.5 % (0-2); Eosinophils Absolute Auto 0.1 X10*3/uL (0.0-0.4); Eosinophils Percent Auto 2.1 % (0-4); Hematocrit 36.8 % (37.0-47.0); Hemoglobin 13.1 g/dl (12.0-16.0); Imm Gran Abs Auto 0.02 X10*3/uL (0.00-0.03); Imm Gran Pct Auto 0.3 % (0.0-0.4); Lymphocytes Absolute Auto 2.6 X10*3/uL (1.2-4.9); Mean Corpuscular HGB Conc 35.6 g/dl (31.0-35.0); Mean Platelet Volume 9.8 fL (9.4-12.3); Monocytes Absolute Auto 0.7 X10*3/uL (0.1-1.2); Monocytes Percent Auto 11.5 % (2-11); Neutrophils Absolute Auto 2.8 x10*3/uL (2.0-8.3); Neutrophils Percent Auto 44.6 % (45-73); Platelet Count 232 X10*3/uL (160-400); Red Blood Count 4.09 X10*6/uL (4.20-5.50); Red Cell Distribution Width 13.1 % (11.0-16.0); White Blood Count 6.2 X10*3/uL (4.8-10.8)
[2024-05-26 08:05] LABS: Estimated Average Glucose 105 mg/dL; Hemoglobin A1c % 5.3 % (<6.0)
[2024-05-26 08:07] LABS: Alanine Aminotransferase 29 U/L (0-31); Albumin Level 3.9 g/dL (3.5-5.0); Alkaline Phosphatase 92 U/L (39-117); Anion Gap 13 (12-20); Aspartate Amino Transferase 23 U/L (5-31); Bilirubin Total 0.4 mg/dL (0.0-1.0); Blood Urea Nitrogen 14 mg/dL (9-16); Calcium 9.7 mg/dL (8.4-10.2); Carbon Dioxide 26 mmol/L (22-29); Chloride 104 mmol/L (96-108); Cholesterol 166 mg/dL (<200); Estimated Glomerular Filt Rate > 60; Glucose Fasting 95 mg/dL (60-99); HDL Cholesterol 36 mg/dL (>40); LDL Cholesterol Calculated 101 mg/dL (<100); Sodium 139 mmol/L (135-145); Total Protein 7.5 g/dL (6.5-8.0); Triglycerides 148 mg/dL (<150)
[2024-05-26 08:29] LABS: Vitamin B12 483 pg/mL (200-900)
[2024-05-26 11:08] LABS: Free T4 (Free Thyroxine) 0.81 ng/dL (0.71-1.85)
[2024-06-01 23:24] LABS: Vitamin D 25-OH, D2 <4 ng/mL; Vitamin D 25-OH, D3 34 ng/mL; Vitamin D 25-OH, Total 34 ng/mL (30-100)
== END 2024-05-26 06:42 | disposition home or self-care (01) ==
LOC: HO.LAB 06:41
PROVIDERS: Absent Provider Radiology Vascular & Interventional Radiology; PCP Internal Medicine; Visit Provider Internal Medicine
DX: D25.9 Leiomyoma of uterus, unspecified (principal); Z00.01 Encounter for general adult medical examination with abnormal findings; I10 Essential (primary) hypertension; E78.9 Disorder of lipoprotein metabolism, unspecified; E55.9 Vitamin D deficiency, unspecified; E66.01 Morbid (severe) obesity due to excess calories; Z68.42 Body mass index [BMI] 45.0-49.9, adult; E53.8 Deficiency of other specified B group vitamins; Z79.899 Other long term (current) drug therapy
CPT/HCPCS: 36415; 80053; 80061; 82306; 82607; 83036; 84439; 84443; 85025

== ENCOUNTER 2024-06-22 11:24 | Day surgery (SDC) | payer OTHER, SELFPAY ==
[2024-06-22] VITALS (34 sets, daily range): BP systolic 119–154; BP diastolic 51–96; PULSE 63–92; RESP 11–21; TEMP 36.4–37; O2SAT 94–99; BMI 45.3
--- NOTE | ~2024-06-22 | IR_ITS ---
History: Patient with symptomatic fibroids, primarily menorrhagia. Procedure performed: 1. Ultrasound-guided catheterization of the right common femoral artery. 2. Catheterization of the left internal iliac artery with selective arteriography. 3. Catheterization of the left uterine artery with selective arteriography, embolization, and follow-up arteriography. 4. Catheterization of the right internal iliac artery with selective arteriography. 5. Catheterization of the right uterine artery with selective arteriography, embolization, and follow-up arteriography. 6. Catheterization of the abdominal aorta with abdominal aortography. Physician: Malachi Kiran MD [facility] Anesthesia: IV moderate sedation with intravenous fentanyl and versed was administered under my direct supervision with continuous physiologic monitoring for a total of 80 minutes. 10 mL 1% lidocaine was administered at the right groin for local anesthesia. Specimen: None Drain: None Estimated blood loss: Minimal Complications: None Procedure in detail: Informed and written consent was obtained. The patient was positioned supine on the angiography table with sterile preparation of both groins. Ultrasound of the right groin showed a widely patent right common femoral artery. 1% lidocaine was injected subcutaneously under ultrasound guidance and extended to the surface of the artery. A small incision was made in the skin with a #11 blade. Through the incision and under ultrasound guidance with permanent recordings and direct visualization of needle entry into the patent artery, the right common femoral artery was catheterized in a retrograde fashion. A flush catheter was brought to the abdominal aorta and used to obtain up-and-over catheterization of the contralateral left common femoral artery. We then exchanged for a RUC catheter that we formed on the aortic bifurcation. The RUC catheter was used to select the left internal iliac artery and with GREEK imaging we identified the origin of the left uterine artery which we subsequently selected with a Progreat 2.4 microcatheter. Selective arteriography within this artery showed hyperemia to the uterus with the presence of fibroids. There was no abnormal venous shunting. Embolization was commenced and we obtained near stasis of blood flow after administering two syringes of 500-700 um embospheres. Follow-up arteriography through the microcatheter in the left uterine artery and subsequently through the RUC catheter after the microcatheter was removed confirmed near stasis of blood flow. Attention was then directed to the right side. The RUC catheter was used to select the right internal iliac artery and with BEGUM imaging we identified the origin of the right uterine artery which we subsequently selected with a Progreat 2.4 microcatheter. Selective arteriography within this artery showed hyperemia to the uterus with the presence of fibroids. There was no abnormal venous shunting. Embolization was commenced and we obtained near stasis of blood flow after administering two syringes of 500-700 um embospheres. Follow-up arteriography through the microcatheter in the right uterine artery and subsequently through the RUC catheter after the microcatheter was removed confirmed near stasis of blood flow. We exchanged the RUC catheter for a flush catheter brought to the abdominal aorta near the level of the renal arteries. Abdominal aortography was then performed, which confirmed the was no significant blood flow coming from the ovarian arteries to the uterus. Further, there was an excellent result with no significant blood flow coming from the uterine arteries to the uterus. We are satisfied with this result and elected to terminate the case. The catheter was removed over a wire and hemostasis obtained with manual pressure alone. A sterile dressing was applied. Summary: Successful uterine fibroid embolization as described in detail above. Electronically signed by: Presley Kiran MD 06/22/2024 03:54 PM EDT
[2024-06-22 12:13] LABS: UPreg QC Valid YES; Urine Pregnancy NEGATIVE (NEGATIVE)
[2024-06-22 12:28] LABS: INTERNATIONAL NORM RATIO 0.9 (0.9-1.1)
[2024-06-22] MEDS: ceFAZolin Sodium/Dextrose,Iso 2 GM/50 ML PIGGYBACK IV (12:50)
[2024-06-22] MEDS: Ketorolac Tromethamine 15 MG/ML VIAL IVPUSH (13:50)
[2024-06-22] MEDS: Acetaminophen 1,000 MG/100 ML PIGGYBACK 400 MG IV (13:54)
[2024-06-22] MEDS: fentaNYL citrate/PF 100 MCG/2 ML VIAL 50 MCG IVPUSH ×2 (14:14→14:53)
[2024-06-22] MEDS: Midazolam HCl 2 MG/2 ML VIAL 1 MG IVPUSH ×2 (14:16→14:51)
[2024-06-22] MEDS: HYDROmorphone HCl 2 MG/ML VIAL 1 MG IVPUSH (15:08)
[2024-06-22] MEDS: hydrALAZINE HCl 20 MG/ML VIAL 10 MG IVPUSH (15:26)
[2024-06-22] MEDS: dexAMETHasone sod phosphate 4 MG/ML VIAL IVPUSH (16:15)
[2024-06-22] MEDS: oxyCODONE HCl Immed Release 5 MG TABLET PO (16:15)
[2024-06-22] MEDS: HYDROmorphone HCl 0.5 MG/0.5 ML SYRINGE IVPUSH (16:30)
[2024-06-22] MEDS: ondansetron HCL 4 MG/2 ML VIAL IVPUSH (18:30)
== END 2024-06-22 19:43 | disposition home or self-care (01) ==
PROVIDERS: Student in an Organized Health Care Education/Training Program; PCP Internal Medicine; Visit Provider Radiology Vascular & Interventional Radiology
DX: D25.9 Leiomyoma of uterus, unspecified (principal); N93.9 Abnormal uterine and vaginal bleeding, unspecified; I10 Essential (primary) hypertension; E78.00 Pure hypercholesterolemia, unspecified; E66.01 Morbid (severe) obesity due to excess calories; Z68.42 Body mass index [BMI] 45.0-49.9, adult; Z79.899 Other long term (current) drug therapy
CPT/HCPCS: 36415; 37242; 81025; 85610; 99152; 99153; C1769; C1887; C1889; C1894; J0131; J0360; J0690; J1100; J1171; J1644; J1885; J2003; J2250; J2405; J3010; Q9967

== ENCOUNTER → 2024-06-22 12:56 | Outpatient (BNV) | payer OTHER, SELFPAY | PROVIDERS: PCP Internal Medicine; Visit Provider Radiology Vascular & Interventional Radiology | DX: D25.9 Leiomyoma of uterus, unspecified (principal) | CPT/HCPCS: 37243; 76937; 99152 ==

== ENCOUNTER 2024-06-27 11:03 | Outpatient (AMB) | payer OTHER, SELFPAY ==
[2024-06-27 11:10] VITALS: BP 132/80; PULSE 69; O2SAT 98; BMI 48.6
--- NOTE | 2024-06-27 11:10 | A.OFFPC_ITS ---
Vital Signs 06/27/24 11:10 Height 5 ft 2 in Weight 266 lb BMI 48.6 BP 132/80 Blood Pressure Location Lt brachial Position Sitting Pulse 69 Pulse Source Pulse Oximeter Pulse Oximetry (%) 98 Oxygen Delivery Method Room Air Intake Visit Reasons: 6 months f/up Clinical Quality Rn Required: No Accompanied by: Self / Same As Patient Allergies No Known Allergies Allergy (Unknown, Verified 06/27/24 11:10) U Medication List - Last Reconciled 06/27/24 by Madina Esparza MD ascorbic acid (vitamin C) 500 mg PO DAILY atorvastatin 20 mg PO BEDTIME 90 days biotin mcg PO cholecalciferol (vitamin D3) 125 mcg PO BEDTIME cyanocobalamin (vitamin B-12) 1,000 mcg PO TUSA docusate sodium 100 mg PO BID PRN ferrous sulfate 324 mg PO TUSA hydrochlorothiazide 25 mg PO DAILY 90 days omeprazole magnesium (Prilosec OTC) 20 mg PO DAILY Tobacco use date assessed: 06/27/24 Dental Screening Dental Screen Date: 06/27/24 Did you have a dental visit in the last 12 months?: Yes Did you have a dental problem in the last 6 months where you did not have access to dental care?: No Was dental information given to patient?: Patient has dentist HPI 6 months f/up HPI Details History - The patient is a 44-year-old female pr esenting for a six-month follow-up appointment. - Thyroid function tests performed in [facility] indicated abnormalities. TSH above 6. - Recently, the patient underwent fibroi d embolization. Following the procedure, the patient had difficulties with bowel movements, which have since resolved, but resulted in cramping. - Current blood pressure recorded at 132 mmHg, remains above the target range i ndicating that the hypertension is not optimally managed. Problem List - Abnormal Thyroid Function - Essential Hypertension - Post-Fibroid Embolization Status - Constipation Patient Instructions - Start taking the prescribed thyroid me dication at a dose of 50 mcg. Levothyroxine - Take thyroid medication on an empty st omach, in the morning, and wait at least 20 minutes before eating or taking other medications. - Schedule a repeat thyroid blood test i n two months. - Follow up in three months for a review of lab results and blood pressure monitoring. - Monitor blood pressure and report if l evels remain elevated. - Maintain current regimen for constipat ion as discussed. Review of Systems - General: No fever no chills - Neurological: No headaches no dizziness - Ear nose throat: No sore throat no hearing difficulty no ear pain - Cardiovascular: No syncope, no chest pain, no palpitations - Gastrointestinal: No nausea vomiting or diarrhea - Endocrine: No polyuria polydipsia no heat intolerance - Genitourinary: No dysuria , no blood in urine Physical Exam General: No acute distress HEENT: No acute findings Neck: Supple Respiratory system: Lungs are clear, able to talk in full sentences, no audible wheeze Cardiovascular: S1-S2 regular in rate and rhythm, blood pressure is 132 Gastrointestinal: No pain, crampy due to recent constipation treatment Extremities: No new findings SOLUTIONS ANALYST: Alert awake oriented x3 motor sensory intact Skin: Normal turgor, potential for dryness if thyroid issues persist [facility] Medical History Abnormal LFTs Gallstone Morbid obesity with BMI of 45.0-49.9, adult High cholesterol Hypertension Surgical History No pertinent past surgical history Family History Father Hyperlipidemia Diabetes mellitus COPD (chronic obstructive pulmonary disease) Mother Hyperlipidemia HTN (hypertension) Skin cancer Maternal Grandfather No problems noted. Maternal Grandmother No problems noted. Paternal Grandmother CHF (congestive heart failure) Dementia Paternal Grandfather No problems noted. Sister No problems noted. Son No problems noted. Son No problems noted. Social History Housing: House Alcohol intake: never Patient Tobacco Use Status: Never used Tobacco e-Cigarette/Vaping Use: Never Used Second Hand Smoke Exposure: No service: No Current occupational status: employed Current occupational exposures/hazards: No Sexual orientation: Straight/Heterosexual Gender identity: Female Cognitive needs: No Hearing needs: No Vision needs: Yes Female Reproductive History Menstrual Age of Menarche: 12 Questionnaire PHQ-9 Over the last 2 weeks, how often have you been bothered by any of the following problems? 1. Little interest or pleasure in doing things: not at all 2. Feeling down, depressed, or hopeless: not at all 3. Trouble falling or staying asleep, or sleeping too much: not at all 4. Feeling tired or having little energy: not at all 5. Poor appetite or overeating: not at all 6. Feeling bad about yourself - or that you are a failure or have let yourself or your family down: not at all 7. Trouble concentrating on things, such as reading the newspaper or watching television: not at all 8. Moving or speaking so slowly that other people could have noticed. Or the opposite - being so fidgety or restless that you have been moving around a lot more than usual: not at all 9. Thoughts that you would be better off or of hurting yourself in some way: not at all Total score: 0 Depression Screening Interpretation: Negative Depression Screening Done: Yes [id number] - PHQ-9 Billing: Yes Source: Developed by Drs. Shant Hansen, Tea Springer, Devon Chawla and colleagues, with an educational chandler from [employer]. Thrive Questionnaire Date Thrive assessed: 06/27/24 I am a: Patient What is your living situation today?: I have a steady place to live Within the past 12 months, did the food you bought not last and you didn't have the money to get more?: Never true Within the past 12 months, did you worry whether your food would run out before you got money to buy more?: Never true Do you have trouble paying for medicines?: No Do you have trouble getting transportation to medical appointments?: No Do you have trouble paying your heating and electricity bill?: No Do you have trouble taking care of your child, family member or friend?: No Do you have trouble with day-to-day activities such as bathing, preparing meals, shopping, managing finances, etc.?: No Are you currently unemployed and looking for a job?: No Are you interested in more education?: No Please select the resources that you would like help with: None Currently or been in a relationship where the following occur: No concerns reported THRIVE Score: 0 AUDIT C Alcohol Use Questionnaire (AUDIT-C) 1. How often do you have a drink containing alcohol?: Monthly or less 2. How many drinks containing alcohol do you have on a typical day when you are drinking?: 1 or 2 3. How often do you have six or more drinks on one occasion?: Never Total Score: 1 Score Reviewed/Action Taken: Yes YUE-7 AMB Questionnaire YUE-7 Date YUE - 7 assessed: 06/27/24 Feeling nervous, anxious, or on edge: 0 = Not at all Not being able to stop or control worryin = Not at all Worrying too much about different things: 0 = Not at all Trouble relaxin = Not at all Being so restless that it is hard to sit still: 0 = Not at all Becoming easily annoyed or irritable: 0 = Not at all Feeling afraid as if something awful might happen: 0 = Not at all Total YUE-7 score (0-4 normal; 5-9 mild; 10-14 moderate; 15-21 severe): 0 Source: Developed by Drs. Shant Hansen, Tea Springer, Devon Chawla and colleagues, with an educational chandler from [employer]. YUE-7 Assessment Billing YUE-7 Assessment Tool: YUE-7 Assessment 00699 Physical exam (Primary Care) Vital Signs: Last Vital Signs Pulse 69 06/27/24 11:10 BP 132/80 06/27/24 11:10 Pulse Ox 98 06/27/24 11:10 Oxygen Delivery Method Room Air 06/27/24 11:10 BMI result Body Mass Index 48.6 Tobacco/Smoking Status: Tobacco use Status Tobacco use date assessed 06/27/24 06/27/24 11:14 Patient Tobacco Use Status Never used Tobacco 06/27/24 11:14 e-Cigarette/Vaping Use Never Used 06/27/24 11:14 PHQ-9: PHQ-9 Score PHQ-9: Total score 0 06/27/24 12:25 Depression Screening Interpretation: Negative Thrive Assessment: Date of Thrive Assessment Date Thrive assessed 06/27/24 06/27/24 11:14 Currently or been in a relationship where the following occur: No concerns reported Coding Level of Care Code Est Pt Level 4 (63257) Diagnoses Other specified hypothyroidism E03.8 Hypertension, essential I10 Lipid disorder E78.9 Morbid obesity with BMI of 45.0-49.9, adult E66.01; Z68.42 Additional Codes YUE-7 Assessment Billing - YUE-7 Assessment Tool: YUE-7 Assessment 20057 ([id number]) PHQ-9 - 87113 - PHQ-9 Billing: Yes ([id number]) Assessment & Plan Assessment & Plan (1) Other specified hypothyroidism: Code(s): E03.8 - Other specified hypothyroidism Category: Medical (2) Hypertension, essential: Code(s): I10 - Essential (primary) hypertension Category: Medical (3) Lipid disorder: Code(s): E78.9 - Disorder of lipoprotein metabolism, unspecified Category: Medical (4) Morbid obesity with BMI of 45.0-49.9, adult: Code(s): E66.01 - Morbid (severe) obesity due to excess calories; Z68.42 - Body mass index [BMI] 45.0-49.9, adult Category: Medical Plan History - The patient is a 44-year-old female presenting for a six-month follow-up appointment. - Thyroid function tests performed in May indicated abnormalities. TSH above 6. - Recently, the patient underwent fibroid embolization. Following the procedure, the patient had difficulties with bowel movements, which have since resolved, but resulted in cramping. - Current blood pressure recorded at 132 mmHg, remains above the target range indicating that the hypertension is not optimally managed. Problem List - Abnormal Thyroid Function - Essential Hypertension - Post-Fibroid Embolization Status - Constipation Patient Instructions - Start taking the prescribed thyroid medication at a dose of 50 mcg. Levothyroxine - Take thyroid medication on an empty stomach, in the morning, and wait at least 20 minutes before eating or taking other medications. - Schedule a repeat thyroid blood test in two months. - Follow up in three months for a review of lab results and blood pressure monitoring. - Monitor blood pressure and report if levels remain elevated. - Maintain current regimen for constipation as discussed. Orders: Orders TSH reflex Free T4 Today E03.8 - Other specified hypothyroidism Thyroglobulin Antibodies Today E03.8 - Other specified hypothyroidism
== END 2024-06-27 11:29 | disposition home or self-care (01) ==
LOC: HO.HMCC 11:03
PROVIDERS: PCP Internal Medicine; Visit Provider Internal Medicine
DX: I10 Essential (primary) hypertension (principal); E66.01 Morbid (severe) obesity due to excess calories; Z68.42 Body mass index [BMI] 45.0-49.9, adult; E03.8 Other specified hypothyroidism; E78.9 Disorder of lipoprotein metabolism, unspecified

== ENCOUNTER → 2024-06-27 11:03 | Outpatient (BNVA) | payer OTHER, SELFPAY | PROVIDERS: PCP Internal Medicine; Visit Provider Internal Medicine | DX: E03.8 Other specified hypothyroidism (principal); I10 Essential (primary) hypertension; E78.9 Disorder of lipoprotein metabolism, unspecified; E66.01 Morbid (severe) obesity due to excess calories; Z68.42 Body mass index [BMI] 45.0-49.9, adult | CPT/HCPCS: 96127 ==

== ENCOUNTER 2024-08-09 07:55 | Outpatient (AMB) | payer OTHER, SELFPAY ==
[2024-08-09 07:59] VITALS: BP 122/84; BMI 49.4
--- NOTE | 2024-08-09 07:59 | A.OFFVIS_ITS ---
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 History of AUB. History of uterine embolization for fibroids 06/22/24. No cycle since the procedure. Has a MRI follow up scheduled. Currently is not sexually active. She denies vaginal itching or irritation. STI screening offered; she declines. She tries to eat healthy and stays active with exercise. Denies family history of breast, ovarian or colon cancer. Last pap smear 2023, negative. Mammogram: 2023. [facility] Medical History Fibroid Abnormal LFTs Gallstone Morbid obesity with BMI of 45.0-49.9, adult High cholesterol Hypertension Surgical History No pertinent past surgical history Family History Father Hyperlipidemia Diabetes mellitus COPD (chronic obstructive pulmonary disease) Mother Hyperlipidemia HTN (hypertension) Skin cancer Maternal Grandfather No problems noted. Maternal Grandmother No problems noted. Paternal Grandmother CHF (congestive heart failure) Dementia Paternal Grandfather No problems noted. Sister No problems noted. Son No problems noted. Son No problems noted. Social History Housing: House Alcohol intake: never Patient Tobacco Use Status: Never used Tobacco e-Cigarette/Vaping Use: Never Used Second Hand Smoke Exposure: No service: No Current occupational status: employed Current occupational exposures/hazards: No Sexual orientation: Straight/Heterosexual Gender identity: Female Cognitive needs: No Hearing needs: No Vision needs: Yes Female Reproductive History Menstrual Age of Menarche: 12 Date of last menstrual period: 05/26/24 Total pregnancies: 2 Full term: 2 Number of Living Children: 2 Date of last pap smear: 08/03/23 (neg pap and hpv) Date of Mammogram: 11/29/23 (Birad 1) Review of Systems Const All systems reviewed & are unremarkable except as noted in HPI and below Reports as per HPI Eyes Reports no additional complaints ENT Reports no additional complaints Card Reports no additional complaints Resp Reports no additional complaints GI Reports as per HPI and Reports no additional complaints Reports as per HPI Musc Reports no additional complaints Skin/Breast Reports as per HPI Neuro Reports no additional complaints Psych Reports no additional complaints Endo Reports no additional complaints Rodriguez/Lymph Reports no additional complaints Aller/Immun Reports no additional complaints Physical Exam Vital Signs: Last Vital Signs BP 122/84 08/09/24 07:59 BMI result Body Mass Index 49.4 Const General: cooperative, healthy appearing, no acute distress, well developed and alert Orientation/consciousness: patient oriented x3 HEENT Head: Yes normal to inspection Eyes General: appearance normal, both eyes and all related structures Neck Neck: Yes normal visual inspection Thyroid: Thyroid normal Chest Chest palpation & inspection: normal inspection of the chest and other (no puckering, dimpling, peau de orange, retraction, discharge, masses) Breast/axilla inspection: normal inspection of the breasts Breast/axilla palpation: normal palpation of the breasts Resp Effort & Inspection: normal respiratory effort GI Inspection: Yes normal to inspection Palpation (GI): Soft to palpation Rectal Exam - Female: deferred General: Yes bladder normal to palpation External Female Exam: normal external appearance and normal appearance of the urethra Speculum Exam - Vagina: normal appearance of the vagina, normal palpation and normal vaginal discharge Speculum Exam - Cervix: normal appearance of the cervix and normal palpation Bimanual exam- vagina & uterus: normal bimanual exam, normal palpation, uterine size normal, bladder normal to palpation, normal palpation and non-tender Bimanual Exam- Adnexa, other: no masses Skin General skin exam: no rashes or lesions noted Rashes: no rashes Neuro General: patient oriented x3 Cognition (Neuro): normal cognition Extrem General: Yes normal to inspection Psych Attitude: cooperative Thought process: Normal thought process present Assessment & Plan Assessment & Plan (1) Encounter for well woman exam with routine gynecological exam: Code(s): Z01.419 - Encounter for gynecological examination (general) (routine) without abnormal findings Category: Medical Plan Discussed: Current recommendations for pap smears per ASCCP guidelines. Breast awareness and periodic breast exams. Mammogram yearly. Maintain a healthy lifestyle including a well balanced diet and routine exercise. Monitor menstrual cycles, report any unscheduled bleeding, bleeding episodes <24 days apart or heavy/prolonged menstrual bleeding. Call the office for a follow up for any concerns. Patient verbalizes understanding and agrees to the plan of care. She was given opportunity to ask questions and all questions were answered to the best of my ability. 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 This note is constructed using voice recognition software. While every effort has been made to ensure accuracy, caregiver services home errors may have been included. Coding Level of Care Code Est Pt Prev Care 40-64y(07561) Diagnoses Encounter for well woman exam with routine gynecological exam Z01.419
== END 2024-08-09 08:27 | disposition home or self-care (01) ==
LOC: HO.HWS 07:55
PROVIDERS: PCP Internal Medicine; Visit Provider Advanced Practice Midwife
DX: Z01.419 Encounter for gynecological examination (general) (routine) without abnormal findings (principal)
CPT/HCPCS: 99396; 99459

== ENCOUNTER → 2024-08-09 07:55 | Outpatient (BNVA) | payer OTHER, SELFPAY | PROVIDERS: PCP Internal Medicine; Visit Provider Advanced Practice Midwife ==

== ENCOUNTER 2024-09-14 08:18 | Outpatient (REF) | payer OTHER, SELFPAY ==
[2024-09-14 09:59] LABS: TSH reflex Free T4 1.67 uIU/mL (0.32-4.0)
[2024-09-15 18:58] LABS: Thyroglobulin Antibodies <1 IU/mL (< or = 1)
== END 2024-09-14 08:19 | disposition home or self-care (01) ==
LOC: HO.LAB 08:18
PROVIDERS: PCP Internal Medicine; Visit Provider Internal Medicine
DX: E03.8 Other specified hypothyroidism (principal)
CPT/HCPCS: 36415; 84443; 86800

== ENCOUNTER 2024-09-27 12:55 | Outpatient (AMB) | payer OTHER, SELFPAY ==
[2024-09-27 13:07] VITALS: BP 128/80; PULSE 85; RESP 20; TEMP 37.2; O2SAT 98; BMI 45.9
--- NOTE | 2024-09-27 13:07 | A.OFFPC_ITS ---
Vital Signs 09/27/24 13:07 Height 5 ft 2 in Weight 251 lb BMI 45.9 BP 128/80 Blood Pressure Location Rt brachial Position Sitting Respiration 20 Pulse 85 Pulse Source Pulse Oximeter Temp 99.0 F Temp Source Oral Pulse Oximetry (%) 98 Oxygen Delivery Method Room Air Intake Visit Reasons: 3 month follow up Allergies No Known Allergies Allergy (Unknown, Verified 09/27/24 13:09) U Medication List - Last Reconciled 09/27/24 by Madina Esparza MD ascorbic acid (vitamin C) 500 mg PO DAILY atorvastatin 20 mg PO BEDTIME 90 days biotin mcg PO cholecalciferol (vitamin D3) 125 mcg PO BEDTIME cyanocobalamin (vitamin B-12) 1,000 mcg PO TUSA docusate sodium 100 mg PO BID PRN ferrous sulfate 324 mg PO TUSA hydrochlorothiazide 25 mg PO DAILY 90 days levothyroxine 50 mcg PO DAILY omeprazole magnesium (Prilosec OTC) 20 mg PO DAILY Tobacco use date assessed: 09/27/24 Dental Screening Dental Screen Date: 06/27/24 HPI 3 month follow up HPI Details History - The patient is a 44-year-old female pr esenting for a regular follow-up appointment. - There are no new symptoms or complaint s. - The patient has a recent history of no rmal thyroid test results conducted in August. - There have been no reports of chest pa in, nausea, vomiting, or ankle swelling recently. Medical History: - Essential Hypertension - Hypothyroidism - Gastroesophageal Reflux Disease (GERD) - Vitamin B12 deficiency - Iron deficiency anemia Medications: - Atorvastatin 20 mg, for managing hyper lipidemia - Vitamin D supplement, frequency unspec ified - Vitamin B12, frequency unspecified - Iron supplement, frequency unspecified - Hydrochlorothiazide, dosage unspecifie d - Levothyroxine 50 mcg, for managing hyp othyroidism - Omeprazole, as needed, for managing GE RD symptoms Diagnostic Results: - Thyroid function test conducted in Aug, results were normal. Problem List - Essential Hypertension - Hypothyroidism - Gastroesophageal Reflux Disease (GERD) - Vitamin B12 deficiency - Iron deficiency anemia Patient Instructions - Be careful with sun exposure to preven t sunburn. - Follow up with a physical exam appoint ment in December. - Thyroid medication will be refilled fo r six months. Review of Systems - General: No fever no chills - Neurological: No headaches no dizziness - Ear nose throat: No sore throat no hearing difficulty no ear pain - Cardiovascular: No syncope, no chest pain, no palpitations - Gastrointestinal: No nausea vomiting or diarrhea - Endocrine: No polyuria polydipsia no heat intolerance - Genitourinary: No dysuria , no blood in urine Physical Exam General: No acute distress HEENT: No acute findings Neck: Supple Respiratory system: Able to talk in full sentences, no audible wheeze Cardiovascular: S1-S2 regular in rate and rhythm Gastrointestinal: No pain Extremities: No new findings PAPER TWISTER TENDER: Alert awake oriented x3 motor sensory intact Skin: Sunburn present [facility] Medical History Fibroid Abnormal LFTs Gallstone Morbid obesity with BMI of 45.0-49.9, adult High cholesterol Hypertension Surgical History No pertinent past surgical history Family History Father Hyperlipidemia Diabetes mellitus COPD (chronic obstructive pulmonary disease) Mother Hyperlipidemia HTN (hypertension) Skin cancer Maternal Grandfather No problems noted. Maternal Grandmother No problems noted. Paternal Grandmother CHF (congestive heart failure) Dementia Paternal Grandfather No problems noted. Sister No problems noted. Son No problems noted. Son No problems noted. Social History Housing: House Alcohol intake: never Patient Tobacco Use Status: Never used Tobacco e-Cigarette/Vaping Use: Never Used Second Hand Smoke Exposure: No service: No Current occupational status: employed Current occupational exposures/hazards: No Sexual orientation: Straight/Heterosexual Gender identity: Female Cognitive needs: No Hearing needs: No Vision needs: Yes Female Reproductive History Menstrual Age of Menarche: 12 Questionnaire PHQ-9 Over the last 2 weeks, how often have you been bothered by any of the following problems? 1. Little interest or pleasure in doing things: not at all 2. Feeling down, depressed, or hopeless: not at all 3. Trouble falling or staying asleep, or sleeping too much: not at all 4. Feeling tired or having little energy: not at all 5. Poor appetite or overeating: not at all 6. Feeling bad about yourself - or that you are a failure or have let yourself or your family down: not at all 7. Trouble concentrating on things, such as reading the newspaper or watching television: not at all 8. Moving or speaking so slowly that other people could have noticed. Or the opposite - being so fidgety or restless that you have been moving around a lot more than usual: not at all 9. Thoughts that you would be better off or of hurting yourself in some way: not at all Total score: 0 Depression Screening Interpretation: Negative Depression Screening Done: Yes 33292 - PHQ-9 Billing: Yes Source: Developed by Drs. Shant Hansen, Tea Springer, Devon Chawla and colleagues, with an educational chandler from [employer]. Thrive Questionnaire Date Thrive assessed: 06/26/24 I am a: Patient What is your living situation today?: I have a steady place to live Within the past 12 months, did the food you bought not last and you didn't have the money to get more?: Never true Within the past 12 months, did you worry whether your food would run out before you got money to buy more?: Never true Do you have trouble paying for medicines?: No Do you have trouble getting transportation to medical appointments?: No Do you have trouble paying your heating and electricity bill?: No Do you have trouble taking care of your child, family member or friend?: No Do you have trouble with day-to-day activities such as bathing, preparing meals, shopping, managing finances, etc.?: No Are you currently unemployed and looking for a job?: No Are you interested in more education?: No Please select the resources that you would like help with: None Currently or been in a relationship where the following occur: No concerns reported THRIVE Score: 0 YUE-7 AMB Questionnaire YUE-7 Date YUE - 7 assessed: 09/27/24 Source: Developed by Drs. Shant Hansen, Tea Springer, Devon Chawla and colleagues, with an educational chandler from [employer]. Physical exam (Primary Care) Vital Signs: Last Vital Signs Temp 99.0 F 09/27/24 13:07 Pulse 85 09/27/24 13:07 Resp 20 09/27/24 13:07 BP 128/80 09/27/24 13:07 Pulse Ox 98 09/27/24 13:07 Oxygen Delivery Method Room Air 09/27/24 13:07 BMI result Body Mass Index 45.9 Tobacco/Smoking Status: Tobacco use Status Tobacco use date assessed 09/27/24 09/27/24 13:12 Patient Tobacco Use Status Never used Tobacco 09/27/24 13:07 e-Cigarette/Vaping Use Never Used 09/27/24 13:07 PHQ-9: PHQ-9 Score PHQ-9: Total score 0 09/27/24 13:12 Depression Screening Interpretation: Negative Thrive Assessment: Date of Thrive Assessment Date Thrive assessed 06/26/24 09/27/24 13:07 Currently or been in a relationship where the following occur: No concerns reported Coding Level of Care Code Est Pt Level 3 (68642) Diagnoses Other specified hypothyroidism E03.8 Hypertension, essential I10 Lipid disorder E78.9 Morbid obesity with BMI of 45.0-49.9, adult E66.01; Z68.42 Additional Codes PHQ-9 - 48902 - PHQ-9 Billing: Yes ([id number]) Assessment & Plan Assessment & Plan (1) Other specified hypothyroidism: Code(s): E03.8 - Other specified hypothyroidism Category: Medical (2) Hypertension, essential: Code(s): I10 - Essential (primary) hypertension Category: Medical (3) Lipid disorder: Code(s): E78.9 - Disorder of lipoprotein metabolism, unspecified Category: Medical (4) Morbid obesity with BMI of 45.0-49.9, adult: Code(s): E66.01 - Morbid (severe) obesity due to excess calories; Z68.42 - Body mass index [BMI] 45.0-49.9, adult Category: Medical Plan History - The patient is a 44-year-old female presenting for a regular follow-up appointment. - There are no new symptoms or complaints. - The patient has a recent history of normal thyroid test results conducted in August. - There have been no reports of chest pain, nausea, vomiting, or ankle swelling recently. Medical History: - Essential Hypertension - Hypothyroidism - Gastroesophageal Reflux Disease (GERD) - Vitamin B12 deficiency - Iron deficiency anemia Medications: - Atorvastatin 20 mg, for managing hyperlipidemia - Vitamin D supplement, frequency unspecified - Vitamin B12, frequency unspecified - Iron supplement, frequency unspecified - Hydrochlorothiazide, dosage unspecified - Levothyroxine 50 mcg, for managing hypothyroidism - Omeprazole, as needed, for managing GERD symptoms Diagnostic Results: - Thyroid function test conducted in August, results were normal. Problem List - Essential Hypertension - Hypothyroidism - Gastroesophageal Reflux Disease (GERD) - Vitamin B12 deficiency - Iron deficiency anemia Patient Instructions - Be careful with sun exposure to prevent sunburn. - Follow up with a physical exam appointment in December. - Thyroid medication will be refilled for six months. Medications: Refilled levothyroxine 50 mcg PO DAILY 90 tabs 1RF
== END 2024-09-27 13:17 | disposition home or self-care (01) ==
LOC: HO.HMCC 12:56
PROVIDERS: PCP Internal Medicine; Visit Provider Internal Medicine
DX: E03.8 Other specified hypothyroidism (principal); E78.9 Disorder of lipoprotein metabolism, unspecified; E66.01 Morbid (severe) obesity due to excess calories; Z68.42 Body mass index [BMI] 45.0-49.9, adult; I10 Essential (primary) hypertension

== ENCOUNTER → 2024-09-27 12:55 | Outpatient (BNVA) | payer OTHER, SELFPAY | PROVIDERS: PCP Internal Medicine; Visit Provider Internal Medicine | DX: E03.8 Other specified hypothyroidism (principal); I10 Essential (primary) hypertension; E78.9 Disorder of lipoprotein metabolism, unspecified; E66.01 Morbid (severe) obesity due to excess calories; Z68.42 Body mass index [BMI] 45.0-49.9, adult; K21.9 Gastro-esophageal reflux disease without esophagitis; E53.8 Deficiency of other specified B group vitamins; D50.9 Iron deficiency anemia, unspecified; Z79.899 Other long term (current) drug therapy; Z13.31 Encounter for screening for depression | CPT/HCPCS: 96127 ==

== ENCOUNTER 2024-11-30 12:20 | Outpatient (REF) | payer OTHER, SELFPAY | END 2024-11-30 12:21 | disposition home or self-care (01) | LOC: HO.MAMMO 12:20 | PROVIDERS: PCP Internal Medicine; Visit Provider Internal Medicine | DX: Z12.31 Encounter for screening mammogram for malignant neoplasm of breast (principal) | CPT/HCPCS: 77063; 77067 ==

== ENCOUNTER → 2024-11-30 12:30 | Outpatient (BNV) | payer OTHER, SELFPAY | PROVIDERS: PCP Internal Medicine; Visit Provider Internal Medicine | DX: Z12.31 Encounter for screening mammogram for malignant neoplasm of breast (principal) | CPT/HCPCS: 77063; 77067 ==

== ENCOUNTER 2024-12-26 14:29 | Outpatient (REF) | payer OTHER, SELFPAY ==
[2024-12-26 16:20] LABS: MANUAL DIFF FLAG NO
[2024-12-26 16:21] LABS: Hematocrit 37.5 % (37.0-47.0); Hemoglobin 13.6 g/dl (12.0-16.0); Imm Gran Abs Auto 0.01 X10*3/uL (0.00-0.03); Imm Gran Pct Auto 0.2 % (0.0-0.4); Lymphocytes Absolute Auto 2.0 X10*3/uL (1.2-4.9); Mean Corpuscular HGB Conc 36.3 g/dl (31.0-35.0); Mean Corpuscular Hemoglobin 31.9 pg (27.0-33.0); Mean Corpuscular Volume 88.0 fL (80.0-98.0); NRBC Abs Auto 0.000 X10*3/uL (0.0-0.012); NRBC Pct Auto 0.0 /100WBC (0.0-0.2); Platelet Count 176 X10*3/uL (160-400); Red Blood Count 4.26 X10*6/uL (4.20-5.50); White Blood Count 6.5 X10*3/uL (4.8-10.8)
[2024-12-26 16:39] LABS: Alanine Aminotransferase 20 U/L (0-31); Albumin Level 4.4 g/dL (3.5-5.0); Alkaline Phosphatase 104 U/L (39-117); Anion Gap 12 (12-20); Aspartate Amino Transferase 24 U/L (5-31); Blood Urea Nitrogen 21 mg/dL (9-16); Calcium 9.7 mg/dL (8.4-10.2); Carbon Dioxide 30 mmol/L (22-29); Chloride 104 mmol/L (96-108); Estimated Glomerular Filt Rate > 60; Potassium 3.5 mmol/L (3.3-5.1); Sodium 142 mmol/L (135-145); Total Protein 7.6 g/dL (6.5-8.0)
[2024-12-26 16:56] LABS: Ferritin 81 ng/mL (10-250)
[2024-12-26 17:17] LABS: Vitamin B12 619 pg/mL (200-900)
[2025-01-01 16:39] LABS: Vitamin D 25-OH, D2 <4 ng/mL; Vitamin D 25-OH, D3 44 ng/mL; Vitamin D 25-OH, Total 44 ng/mL (30-100)
== END 2024-12-26 14:30 | disposition home or self-care (01) ==
LOC: HO.HMGCLDS 14:29
PROVIDERS: PCP Internal Medicine; Visit Provider Internal Medicine
DX: Z00.01 Encounter for general adult medical examination with abnormal findings (principal); I10 Essential (primary) hypertension; E78.9 Disorder of lipoprotein metabolism, unspecified; E66.01 Morbid (severe) obesity due to excess calories; R73.01 Impaired fasting glucose; E03.8 Other specified hypothyroidism; E55.9 Vitamin D deficiency, unspecified; E53.8 Deficiency of other specified B group vitamins; Z68.41 Body mass index [BMI] 40.0-44.9, adult
CPT/HCPCS: 36415; 80053; 82306; 82607; 82728; 83721; 84443; 85025

== ENCOUNTER 2024-12-26 14:29 | Outpatient (AMB) | payer OTHER, SELFPAY ==
[2024-12-26 14:32] VITALS: BP 130/82; PULSE 78; O2SAT 98; BMI 43.3
--- NOTE | 2024-12-26 14:32 | A.OFFPC_ITS ---
Vital Signs 12/26/24 14:32 Height 5 ft 2 in Weight 237 lb BMI 43.3 BP 130/82 Blood Pressure Location Rt brachial Position Sitting Pulse 78 Pulse Source Pulse Oximeter Pulse Oximetry (%) 98 Intake Visit Reasons: Annual PE Housing Property Manager Required: No Allergies No Known Allergies Allergy (Unknown, Verified 12/26/24 14:32) U Medication List - Last Reconciled 12/26/24 by Madina Esparza MD ascorbic acid (vitamin C) 500 mg PO DAILY atorvastatin 20 mg PO BEDTIME 90 days biotin mcg PO cholecalciferol (vitamin D3) 125 mcg PO BEDTIME cyanocobalamin (vitamin B-12) 1,000 mcg PO TUSA docusate sodium 100 mg PO BID PRN ferrous sulfate 324 mg PO TUSA hydrochlorothiazide 25 mg PO DAILY 90 days levothyroxine 50 mcg PO DAILY 90 days omeprazole magnesium (Prilosec OTC) 20 mg PO DAILY Tobacco use date assessed: 09/27/24 Dental Screening Dental Screen Date: 06/27/24 HPI Annual PE HPI Details History of Present Illness The patient is a 44-year-old female presenting for a physical examination. Hypertension: - History of high blood pressure managed with hydrochlorothiazide. - No reports of symptoms exacerbating hy pertension. Hyperlipidemia: - Managed with simvastatin. - No associated symptoms noted. Hypothyroidism: - Managed with levothyroxine. - No symptoms reported indicating change s in thyroid status. Gastroesophageal Reflux Disease (GERD): - Managed with [id number] omeprazo le. - No recent exacerbations mentioned. Varicose Veins: - bilateral - No associated pain or significant life style interference reported. Iron Deficiency Anemia: - Takes iron supplementation once a week . - No additional symptoms such as fatigue or weakness reported. Medical History: - Hypertension - Hyperlipidemia - Hypothyroidism - Gastroesophageal Reflux Disease (GERD) - Varicose Veins - Iron Deficiency Anemia Health Maintenance - Routine laboratory tests last done in May of this year; next scheduled repeat pending. - Mammogram performed and up-to-date as of this year. - KNIFE EDGER visit noted in July of this year . - No flu vaccine received yet; patient i ntends to get it at work. Patient Instructions - Complete laboratory tests today. - Plan to have follow-up labs done befor e the next appointment in May. - Continue current medications. - Schedule flu vaccine at work. - Return for a follow-up visit in six mo nths for a routine check. Review of Systems - General: No fever no chills - Neurological: No headaches no dizzin ess - Ear nose throat: No sore throat no hearing difficulty no ear pain - Cardiovascular: No syncope, no chest pain, no palpitations - Gastrointestinal: No nausea vomiting or diarrhea - Endocrine: No polyuria polydipsia no heat intolerance - Genitourinary: No dysuria - Skin: No new complaints Physical Exam General: Cooperative, healthy appearing, comfortable, no acute distress Orientation: Patient oriented x3 Limitations: none Head: Normal to inspection Ears: Within normal limit visually Nose: Normal external nose present Face and sinus: Normal facial exam Eyes: Appearance normal, extraocular movement intact pupils reactive Neck: Normal visual inspection and supple Respiratory: Normal respiratory effort and able to speak in complete sentences. Clear to auscultation, no stridor Cardiovascular: S1 and S2 RRR Breast exam thru Obgyn GI: Normal to inspection. Soft to palpation and nontender Skin: Turgor normal, no acute findings Neuro: Patient oriented x3, motor sensory intact, balance intact, tandem pass Extremities: no swelling of ankles, varicose veins present . [facility] Medical History Fibroid Abnormal LFTs Gallstone Morbid obesity with BMI of 45.0-49.9, adult High cholesterol Hypertension Surgical History No pertinent past surgical history Family History Father Hyperlipidemia Diabetes mellitus COPD (chronic obstructive pulmonary disease) Mother Hyperlipidemia HTN (hypertension) Skin cancer Maternal Grandfather No problems noted. Maternal Grandmother No problems noted. Paternal Grandmother CHF (congestive heart failure) Dementia Paternal Grandfather No problems noted. Sister No problems noted. Son No problems noted. Son No problems noted. Social History Housing: House Alcohol intake: never Patient Tobacco Use Status: Never used Tobacco e-Cigarette/Vaping Use: Never Used Second Hand Smoke Exposure: No service: No Current occupational status: employed Current occupational exposures/hazards: No Sexual orientation: Straight/Heterosexual Gender identity: Female Cognitive needs: No Hearing needs: No Vision needs: Yes Female Reproductive History Menstrual Age of Menarche: 12 Questionnaire Thrive Questionnaire Date Thrive assessed: 06/26/24 I am a: Patient What is your living situation today?: I have a steady place to live Within the past 12 months, did the food you bought not last and you didn't have the money to get more?: Never true Within the past 12 months, did you worry whether your food would run out before you got money to buy more?: Never true Do you have trouble paying for medicines?: No Do you have trouble getting transportation to medical appointments?: No Do you have trouble paying your heating and electricity bill?: No Do you have trouble taking care of your child, family member or friend?: No Do you have trouble with day-to-day activities such as bathing, preparing meals, shopping, managing finances, etc.?: No Are you currently unemployed and looking for a job?: No Are you interested in more education?: No Please select the resources that you would like help with: None Currently or been in a relationship where the following occur: No concerns reported THRIVE Score: 0 YUE-7 AMB Questionnaire YUE-7 Date YUE - 7 assessed: 09/27/24 Source: Developed by Drs. Shant Hansen, Tea Springer, Devon Chawla and colleagues, with an educational chandler from [employer]. Physical exam (Primary Care) Vital Signs: Last Vital Signs Pulse 78 12/26/24 14:32 BP 130/82 12/26/24 14:32 Pulse Ox 98 12/26/24 14:32 BMI result Body Mass Index 43.3 Tobacco/Smoking Status: Tobacco use Status Tobacco use date assessed 09/27/24 12/26/24 14:34 Patient Tobacco Use Status Never used Tobacco 12/26/24 14:34 e-Cigarette/Vaping Use Never Used 12/26/24 14:34 Thrive Assessment: Date of Thrive Assessment Date Thrive assessed 06/26/24 12/26/24 14:34 Currently or been in a relationship where the following occur: No concerns reported Coding Level of Care Code Est Pt Level 3 (19479) Est Pt Prev Care 40-64y(21711) Diagnoses Encounter for general adult medical examination with abnormal findings Z00.01 Hypertension, essential I10 Lipid disorder E78.9 Morbid obesity with BMI of 45.0-49.9, adult E66.01; Z68.42 Impaired fasting blood sugar R73.01 Other specified hypothyroidism E03.8 Vitamin D deficiency E55.9 B12 deficiency E53.8 Assessment & Plan Assessment & Plan (1) Encounter for general adult medical examination with abnormal findings: Code(s): Z00.01 - Encounter for general adult medical examination with abnormal findings Category: Medical (2) Hypertension, essential: Code(s): I10 - Essential (primary) hypertension Category: Medical (3) Lipid disorder: Code(s): E78.9 - Disorder of lipoprotein metabolism, unspecified Category: Medical (4) Morbid obesity with BMI of 45.0-49.9, adult: Code(s): E66.01 - Morbid (severe) obesity due to excess calories; Z68.42 - Body mass index [BMI] 45.0-49.9, adult Category: Medical (5) Impaired fasting blood sugar: Code(s): R73.01 - Impaired fasting glucose Category: Medical (6) Other specified hypothyroidism: Code(s): E03.8 - Other specified hypothyroidism Category: Medical (7) Vitamin D deficiency: Code(s): E55.9 - Vitamin D deficiency, unspecified Category: Medical (8) B12 deficiency: Code(s): E53.8 - Deficiency of other specified B group vitamins Category: Medical Plan History of Present Illness The patient is a 44-year-old female presenting for a physical examination. Hypertension: - History of high blood pressure managed with hydrochlorothiazide. - No reports of symptoms exacerbating hypertension. Hyperlipidemia: - Managed with simvastatin. - No associated symptoms noted. Hypothyroidism: - Managed with levothyroxine. - No symptoms reported indicating changes in thyroid status. Gastroesophageal Reflux Disease (GERD): - Managed with [id number] omeprazole. - No recent exacerbations mentioned. Varicose Veins: - bilateral - No associated pain or significant lifestyle interference reported. Iron Deficiency Anemia: - Takes iron supplementation once a week. - No additional symptoms such as fatigue or weakness reported. Medical History: - Hypertension - Hyperlipidemia - Hypothyroidism - Gastroesophageal Reflux Disease (GERD) - Varicose Veins - Iron Deficiency Anemia Health Maintenance - Routine laboratory tests last done in May of this year; next scheduled repeat pending. - Mammogram performed and up-to-date as of this year. - KNIFE EDGER visit noted in July of this year. - No flu vaccine received yet; patient intends to get it at work. Patient Instructions - Complete laboratory tests today. - Plan to have follow-up labs done before the next appointment in May. - Continue current medications. - Schedule flu vaccine at work. - Return for a follow-up visit in six months for a routine check. . Orders: Orders Comprehensive Met. Panel Today E03.8 - Other specified hypothyroidism, E66.01 - Morbid (severe) obesity due to excess calories, E78.9 - Disorder of lipoprotein metabolism, unspecified, I10 - Essential (primary) hypertension, R73.01 - Impaired fasting glucose, Z00.01 - Encounter for general adult medical examination with abnormal findings, Z68.42 - Body mass index [BMI] 45.0-49.9, adult LDL Cholesterol Direct Today E03.8 - Other specified hypothyroidism, E66.01 - Morbid (severe) obesity due to excess calories, E78.9 - Disorder of lipoprotein metabolism, unspecified, I10 - Essential (primary) hypertension, R73.01 - Impaired fasting glucose, Z00.01 - Encounter for general adult medical examination with abnormal findings, Z68.42 - Body mass index [BMI] 45.0-49.9, adult Vitamin D 25-OH (D2 and D3) Today E53.8 - Deficiency of other specified B group vitamins, E55.9 - Vitamin D deficiency, unspecified Vitamin B12 Today E53.8 - Deficiency of other specified B group vitamins, E55.9 - Vitamin D deficiency, unspecified Ferritin Today E53.8 - Deficiency of other specified B group vitamins, E55.9 - Vitamin D deficiency, unspecified Complete Blood Count Auto Diff 6 Months E03.8 - Other specified hypothyroidism, E78.9 - Disorder of lipoprotein metabolism, unspecified, I10 - Essential (primary) hypertension, R73.01 - Impaired fasting glucose Comprehensive Mineral. Panel Fast 6 Months E03.8 - Other specified hypothyroidism, E78.9 - Disorder of lipoprotein metabolism, unspecified, I10 - Essential (primary) hypertension, R73.01 - Impaired fasting glucose Lipid Panel 6 Months E03.8 - Other specified hypothyroidism, E78.9 - Disorder of lipoprotein metabolism, unspecified, I10 - Essential (primary) hypertension, R73.01 - Impaired fasting glucose Complete Blood Count Auto Diff Today E03.8 - Other specified hypothyroidism, E66.01 - Morbid (severe) obesity due to excess calories, E78.9 - Disorder of lipoprotein metabolism, unspecified, I10 - Essential (primary) hypertension, R73.01 - Impaired fasting glucose, Z00.01 - Encounter for general adult medical examination with abnormal findings, Z68.42 - Body mass index [BMI] 45.0-49.9, adult TSH reflex Free T4 Today E03.8 - Other specified hypothyroidism, E66.01 - Morbid (severe) obesity due to excess calories, E78.9 - Disorder of lipoprotein metabolism, unspecified, I10 - Essential (primary) hypertension, R73.01 - Impaired fasting glucose, Z00.01 - Encounter for general adult medical examination with abnormal findings, Z68.42 - Body mass index [BMI] 45.0-49.9, adult TSH reflex Free T4 6 Months E03.8 - Other specified hypothyroidism, E78.9 - Disorder of lipoprotein metabolism, unspecified, I10 - Essential (primary) hypertension, R73.01 - Impaired fasting glucose
== END 2024-12-26 14:51 | disposition home or self-care (01) ==
LOC: HO.HMCC 14:30
PROVIDERS: PCP Internal Medicine; Visit Provider Internal Medicine
DX: Z00.01 Encounter for general adult medical examination with abnormal findings (principal); I10 Essential (primary) hypertension; E66.01 Morbid (severe) obesity due to excess calories; Z68.42 Body mass index [BMI] 45.0-49.9, adult; E78.9 Disorder of lipoprotein metabolism, unspecified; R73.01 Impaired fasting glucose; E03.8 Other specified hypothyroidism; E55.9 Vitamin D deficiency, unspecified; E53.8 Deficiency of other specified B group vitamins

== ENCOUNTER 2025-02-01 08:19 | Outpatient (REF) | payer OTHER, SELFPAY ==
--- NOTE | ~2025-02-01 | MR_ITS ---
EXAMINATION: MR PELVIS WITHOUT AND WITH CONTRAST CLINICAL INFORMATION: Follow-up uterine fibroid embolization COMPARISON: Previous pelvic MRI March 2024, pelvic ultrasound January [address] of the abdomen and pelvis May 2021 TECHNIQUE: Sagittal axial and coronal sequences through the pelvis with and without contrast. Patient received 10 mL IV gadolinium venous contrast. FINDINGS: The uterus is anteverted and measures 10 x 4.8 x 6.4 cm. This is slightly decreased in size compared to 12.1 x 6.9 x 7.6 cm on previous exam. Junctional zone thickening appears decreased from previous exam. There is a new 2 x 3 x 2 cm nonenhancing intermediate to low signal T1 and T2 area posterior to the endometrium in the upper uterine body in the area of greatest junctional zone thickening. This probably represents postablation changes of adenomyosis. Previously seen paraendometrial cystic changes and evidence of blood products is no longer seen. Small intramural uterine lesions probably representing fibroids, intermediate to low signal on T1, low signal on T2 and nonenhancing postcontrast. Largest fibroids are 6 mm posterior fundal intramural fibroid decreased from 1.3 cm and 1.3 cm right anterior uterine body intramural fibroid slightly decreased from 1.6 cm. The endometrium does not appear thickened measuring up to 3 mm. No endometrial fluid or mass. Nabothian cysts in the cervix. Normal ovaries. Visualized small and large bowel is normal. No ascites. Vascular structures are normal. Small umbilical hernia containing fat. Normal bone marrow signal. MR/MR pelvis wo/w con IMPRESSION: Slight interval decrease in size in the uterus. Slight interval decrease in size in small intramural fibroids. Junctional zone thickening appears decreased. New 2 x 2 x 3 cm nonenhancing area posterior to the endometrium in the upper uterine body in area of previously seen greatest junctional zone thickening probably representing postablation changes of adenomyosis. Electronically signed by: Mago Veronica MD 02/01/2025 01:11 PM [facility]
== END 2025-02-01 08:20 | disposition home or self-care (01) ==
LOC: HO.MRI 08:19
PROVIDERS: PCP Internal Medicine; Visit Provider Radiology Vascular & Interventional Radiology
DX: D25.9 Leiomyoma of uterus, unspecified (principal); Z98.890 Other specified postprocedural states
CPT/HCPCS: 72197; A9585

== ENCOUNTER → 2025-02-01 08:19 | Outpatient (BNV) | payer OTHER, SELFPAY | PROVIDERS: PCP Internal Medicine; Visit Provider Radiology Diagnostic Radiology | DX: D21.9 Benign neoplasm of connective and other soft tissue, unspecified (principal); Z98.890 Other specified postprocedural states | CPT/HCPCS: 72197 ==